=== PATIENT | male | born 1950 | race African-American/Black ===

== ENCOUNTER 2017-03-30 18:49 | Emergency (ER) | payer OTHER ==
[2017-03-30] MEDS ORDERED: Ibuprofen 800 MG TAB ONE (19:42)
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
== END 2017-03-30 20:46 | disposition home or self-care (01) ==
LOC: ERS 18:49
DX: S33.9XXA Sprain of unspecified parts of lumbar spine and pelvis, initial encounter (principal); S13.9XXA Sprain of joints and ligaments of unspecified parts of neck, initial encounter; R51 Headache; E11.42 Type 2 diabetes mellitus with diabetic polyneuropathy; F41.9 Anxiety disorder, unspecified; F32.9 Major depressive disorder, single episode, unspecified; F17.200 Nicotine dependence, unspecified, uncomplicated; I10 Essential (primary) hypertension; Z79.84 Long term (current) use of oral hypoglycemic drugs; Z79.82 Long term (current) use of aspirin; Z79.899 Other long term (current) drug therapy; V43.62XA Car passenger injured in collision with other type car in traffic accident, initial encounter
CPT/HCPCS: 71010; 72040

== ENCOUNTER 2017-04-07 16:14 | Emergency (ER) | payer OTHER ==
--- NOTE | 2017-04-07 19:24 | RAD ---
RADIOGRAPH THORACIC SPINE THREE VIEWS: History: 67-year-old male with mid-upper back pain. FINDINGS: Vertebral body heights are maintained. No high grade discogenic degenerative changes. Pedicles appea r to be grossly intact on the frontal view. The upper thoracic spine is mildly tilted to the right r elative to the lower thoracic spine. IMPRESSION: No evidence of compression fracture in the thoracic spine. POS: ZACH
== END 2017-04-07 18:25 | disposition home or self-care (01) ==
LOC: ERS 16:14
DX: S16.1XXA Strain of muscle, fascia and tendon at neck level, initial encounter (principal); S29.012A Strain of muscle and tendon of back wall of thorax, initial encounter; E78.5 Hyperlipidemia, unspecified; E11.40 Type 2 diabetes mellitus with diabetic neuropathy, unspecified; I10 Essential (primary) hypertension; F41.9 Anxiety disorder, unspecified; F32.9 Major depressive disorder, single episode, unspecified; F17.200 Nicotine dependence, unspecified, uncomplicated; Z79.84 Long term (current) use of oral hypoglycemic drugs; Z79.82 Long term (current) use of aspirin; Z79.899 Other long term (current) drug therapy; V89.2XXA Person injured in unspecified motor-vehicle accident, traffic, initial encounter
CPT/HCPCS: 72072

== ENCOUNTER 2017-07-12 13:07 | Inpatient (IN) | payer OTHER ==
[2017-07-12 13:47] LABS: #Basophils 0.1 thou/uL (0.0-0.2); #Eosinphils 0.1 thou/uL (0.0-0.7); #Lymphocytes 2.6 thou/uL (1.20-3.40); #Monocytes 0.5 thou/uL (0.11-0.59); #Neutrophils 3.7 thou/uL (1.40-6.50); %Eosinophils 1.8 % (0.0-10.0); %Lymphocytes 36.9 % (21.0-51.0); %Monocytes 7.3 % (0.0-10.0); Mean Corpuscular HGB CONC 34.1 g/dL (32.0-36.0); Mean Corpuscular Hemoglobin 31.5 pg (27.0-31.0); Mean Corpuscular Volume 92.4 fl (80.0-94.0); Mean Platelet Volume 6.7 fL (7.4-10.4); Platelet Count 299 thou/uL (130-400); RBC Distribution Width 12.2 % (11.5-14.5); Red Blood Cell (RBC) Count 4.43 mill/uL (4.70-6.10); White Blood Cell (WBC) Count 6.9 thou/uL (4.8-10.8)
--- NOTE | 2017-07-12 13:53 | RAD ---
PORTABLE AP CHEST: Date: 07/12/17 HISTORY: Dizziness with onset of symptoms last night. Unsteady gait. COMPARISON: 03/30/17. FINDINGS: Cardiac silhouette and pulmonary vasculature are within normal limits. The lungs remain clear. Vascul ar calcifications are seen in the thoracic aorta. There is question of increased density in the poste rior right 10th rib, but this is probably artifactual and related to overlying vascular structures. T here has been no interval change compared to the prior exam. IMPRESSION: No acute cardiopulmonary process. POS: [facility]ACH
[2017-07-12 14:08] LABS: ALT (SGPT) 31 U/L (8-55); AST (SGOT) 30 U/L (5-34); Alkaline Phosphatase 42 U/L (40-150); Anion Gap 15 mmol/L (10-20); BUN (Urea Nitrogen) 10 mg/dL (8.4-25.7); Bilirubin, Total 0.3 mg/dL (0.2-1.2); Calc. Creatinine Clearance 0 mL/min (70-130); Calcium 9.9 mg/dL (7.8-10.44); Carbon Dioxide 27 mmol/L (23-31); Chloride 103 mmol/L (98-107); Estimated GFR-MDRD Greater than 90; Globulin 3.3 g/dL (2.4-3.5); Glucose 98 mg/dL (80-115); Potassium 4.5 mmol/L (3.5-5.1); Protein, Total 7.3 g/dL (5.8-8.1); Sodium 140 mmol/L (136-145)
--- NOTE | 2017-07-12 14:51 | CT ---
CT HEAD NONCONTRAST: HISTORY: Dizziness. COMPARISON: 11/29/2015 FINDINGS: There is no evidence of acute intracranial hemorrhage or infarct. Chronic ischemic small vessel dise ase and old lacunar infarcts are again demonstrated. There is no mass effect or shift of midline str uctures. The visualized paranasal sinuses and middle ear cavities remain well aerated. IMPRESSION: No acute intracranial abnormalities are demonstrated on noncontrast CT head. POS: JENS
[2017-07-12 15:13] LABS: Bilirubin Negative (Negative); Blood, Urine Negative (Negative); Clarity CLEAR (Clear); Glucose, Urine (Dipstick) Negative (Negative); Leukocyte Negative (Negative); Nitrite Negative (Negative); Protein, Urine (Dipstick) Negative (Neg-Trace); Specific Gravity, Urine 1.015 (1.002-1.036); Urobilinogen 0.2 mg/dL (0.2-1.0); pH, Urine 7.5 (5.0-9.0)
[2017-07-12 15:17] LABS: Troponin I Less than 0.010 ng/mL (< 0.028)
[2017-07-12 15:21] LABS: CKMB 7.7 ng/mL (0-6.6)
--- NOTE | 2017-07-12 18:14 | MRI ---
MRI OF BRAIN WITHOUT CONTRAST 07/12/17 Multiplanar and multisequential imaging of the brain obtained. Patient refused to continue the exam and sagittal images was not obtained. Patient also refused contr ast administration. Therefore a without study only was performed. HISTORY: Evaluate for stroke. FINDINGS: There is no evidence of restricted diffusion. No acute infarct identified. There are moderate chronic ischemic white matter changes see in both cerebral hemispheres. No mass or edema. The visualized intracranial internal carotid arteries show flow voids. Proximal cerebral jose nisha and basilar arteries show flow voids. IMPRESSION: 1. No acute infarct. 2. Moderate chronic ischemic white matter changes. POS: JENS
[2017-07-12] MEDS ORDERED: Acetaminophen 325 MG TAB PO PRN (21:14)
[2017-07-12 21:18] VITALS: BMI 26.4
[2017-07-13] MEDS ORDERED: Lorazepam 1 MG TAB PO PRN (07:11)
[2017-07-13] MEDS ORDERED: HYDROcodone/Acetaminophen 5/325 mg Tablet PO PRN (07:11)
[2017-07-13] MEDS ORDERED: Nitroglycerin 0.4 MG TAB (25 Tab Bottle) SL PRN (07:11)
[2017-07-13] MEDS ORDERED: traMADol HCl 50 MG TAB PO PRN (07:11)
[2017-07-13] MEDS ORDERED: Bisacodyl 5 MG TAB PO PRN (07:11)
[2017-07-13] MEDS ORDERED: hydrALAZINE 20 MG/ML VIAL SLOW IVP PRN (07:11)
[2017-07-13] MEDS ORDERED: HumaLOG 300 UNITS/3 ML VIAL SC PRN ×2 (07:11)
[2017-07-13] MEDS ORDERED: Benzonatate 100 MG CAP PO PRN (07:11)
[2017-07-13] MEDS ORDERED: Mag-Al 1200 mg/1200 mg/30 ML UDCUP PO PRN (07:11)
[2017-07-13] MEDS ORDERED: Acetaminophen 325 MG TAB PO PRN (07:11)
[2017-07-13] MEDS ORDERED: Ondansetron HCl/PF 4 MG/2 ML Vial IVP PRN (07:11)
[2017-07-13] MEDS ORDERED: Dextrose 50% Abboject 50 ML SYRINGE SLOW IVP PRN (07:11)
[2017-07-13] MEDS ORDERED: Diabetic Tussin 200 MG/10 ML UDCUP PO PRN (07:11)
[2017-07-13] MEDS ORDERED: Dextrose 5% in Water 1,000 ML IV PRN (07:11)
[2017-07-13] MEDS ORDERED: Senokot 8.6 MG TAB PO PRN (07:11)
[2017-07-13] MEDS ORDERED: cloNIDine 0.1 MG TAB PO PRN (07:11)
[2017-07-13] MEDS ORDERED: Calcium Carbonate 500 MG ChewTAB PO PRN (07:11)
[2017-07-13] MEDS ORDERED: Acetaminophen With Codeine [Tylenol With Codeine #4] PO PRN (07:45)
[2017-07-13 07:56] LABS: Anion Gap 12 mmol/L (10-20); BUN (Urea Nitrogen) 12 mg/dL (8.4-25.7); CK (CPK) 140 U/L (30-200); Calc. Creatinine Clearance 120 mL/min (70-130); Calcium 9.7 mg/dL (7.8-10.44); Carbon Dioxide 28 mmol/L (23-31); Chloride 104 mmol/L (98-107); Estimated GFR-MDRD Greater than 90; Glucose 92 mg/dL (80-115); Sodium 140 mmol/L (136-145)
[2017-07-13 07:59] LABS: CKMB 5.4 ng/mL (0-6.6); Troponin I Less than 0.010 ng/mL (< 0.028)
--- NOTE | 2017-07-13 09:18 | CT ---
CT ARTERIOGRAM NECK WITH IV CONTRAST AND 3D MIP IMAGING CT ARTERIOGRAM HEAD WITH IV CONTRAST AND 3D MIP IMAGING: HISTORY: CVA. Vascular disease. FINDINGS: There is calcification throughout the arterial structures. Normal branching of the great vessels is present at the aortic arch. Good flow is demonstrated into each carotid system and the right vertebr al artery. Flow is present within the inferior left vertebral artery. More distally, starting at th e midcervical spine, no contrast flow is seen within the left vertebral artery. On the CT arteriogra m head images, collateral arterial flow is seen within the left side of the foramen magnum, although no flow is apparent within the vertebral artery. At the right carotid bifurcation, there is calcified and noncalcified plaque. Stenosis at the origin of the left internal carotid artery is estimated at 70%. Good flow is present through the remainder of the internal carotid artery. There is mild calcified and noncalcified plaque at the left carotid bifurcation without significant s tenosis apparent. Intracranially, there is calcification at each carotid siphon. Good flow is demonstrated throughout each middle and anterior cerebral arterial system. [place] of [place] is intact. No focal aneurysm or embolus are apparent. IMPRESSION: 1. Atherosclerosis. Significant stenosis at the origin of the right internal carotid artery, estima josé miguel at 70%. 2. Nonopacification of the distal left vertebral artery, having the appearance of long-segment occlu everardo with collateralization and reconstitution distally. POS: JENS
[2017-07-13] MEDS: Enoxaparin Sodium 40 MG/0.4 ML SYRINGE SC SCH (09:26)
[2017-07-13] MEDS: Pregabalin 75 MG CAP PO SCH ×2 (09:26→21:37)
[2017-07-13] MEDS: Lisinopril/Hydrochlorothiazide 20/25 mg Tablet PO SCH (09:30)
[2017-07-13] MEDS: HYDROcodone/Acetaminophen 5/325 mg Tablet PO PRN ×3 (09:35→21:39)
[2017-07-13 10:55] LABS: Cardiac Risk 5.8 (Less than 4.5)
--- NOTE | 2017-07-13 11:24 | HP ---
DATE OF ADMISSION: 07/13/2017 CHIEF COMPLAINT: Dizziness. HISTORY OF PRESENTING ILLNESS: Mr. Engle is a 67-year-old male with past medical history of diabetes, hypertension, dyslipidemia, peripheral neuropathy, spinal stenosis and back pain who presented to [facility] emergency room with the above-mentioned complaints. History is mainly obtained by the patient hims elf. His electronic medical records have been reviewed. The patient is a rather poor historian. According to Mr. Engle, he has problems with his balance for a long time, but for the last 2 days, he has started to have some dizziness which did not go away. It started all of a sudden while he was at his sister's house playing dominoes. He tried to rest and sleep it off, but it is a kind of persist ed. He has neuropathy in his right leg and because of that, he stumbles and falls quite often. He u ses a cane or a walker sometimes to move around. He has not had dizziness on a regular basis, but th is is more acute in nature. He denies any chest pain, shortness of breath, orthopnea or PND with the se symptoms. He denies any blurry vision, nausea, vomiting or headache with these symptoms either. He denies any recent illnesses. He denies any muscle weakness, numbness or tingling. [facility] and [facility] [place] [facility] [place] [facility]. He has known history of stenosis at multilevel in the back and reports that nothing has been done for him. Upon presentation to the emergency room, he was found to have bradycardia with heart rate of 47. Oth erwise, his neurological examination was consistent with findings of prone of nystagmus, delayed fing er-to-nose testing and some ataxia per the emergency room physician as well as positive Romberg sign. For this reason, he underwent a CT scan of the head which was unremarkable. EKG was obtained which showed sinus bradycardia. His labs were unremarkable. He was given aspirin and actually MRI of the head was obtained in the emergency room. The MRI of the brain once again was unremarkable for any e vidence of acute infarction. He does have moderate chronic ischemic small vessel changes. It was de cided that he will get admitted for further evaluation for possible posterior cerebral circulation st roke. At the time of my examination, the patient is in no apparent distress and feeling better. His sympto ms have somewhat resolved. His heart rate has improved to 52 to 58. He noticeably was taking metopr olol at home, which has not been given since his admission to the ER last night. PAST MEDICAL HISTORY: 1. Hypertension. 2. Dyslipidemia. 3. Peripheral neuropathy. 4. Diabetes mellitus. PAST SURGICAL HISTORY: 1. Back surgery x2. 2. Neck surgery. 3. Ankle surgery. SOCIAL HISTORY: He smokes about 1 pack of cigarettes on a daily basis. No history of drug, tobacco or alcohol abuse. PSYCHIATRIC HISTORY: No anxiety or depression, no suicidal ideation. FAMILY HISTORY: Significant for diabetes in multiple family members and hypertension. But his grand mother is alive at 80. He denies any heart attack or stroke in the family. ALLERGIES: PENICILLIN which causes hives. CURRENT MEDICATIONS: Are as follows; lisinopril/hydrochlorothiazide 20/25 mg daily, metoprolol tartr ate 25 mg daily, Lyrica 150 mg p.o. b.i.d., Tylenol with codeine #4 every 6 hours as needed, aspirin 81 mg daily, and metformin 1000 mg p.o. b.i.d. REVIEW OF SYSTEMS: The following complete review of systems was negative, unless otherwise mentioned in the HPI or below: Constitutional: Weight loss or gain, ability to conduct usual activities. Skin: Rash, itching. Eyes: Double vision, pain. ENT/Mouth: Nose bleeding, neck stiffness, pain, tenderness. Cardiovascular: Palpitations, dyspnea on exertion, orthopnea. Respiratory: Shortness of breath, wheezing, cough, hemoptysis, fever or night sweats. Gastrointestinal: Poor appetite, abdominal pain, heartburn, nausea, vomiting, constipation, or diarr hea. Genitourinary: Urgency, frequency, dysuria, nocturia. Musculoskeletal: Pain, swelling. Neurologic/Psychiatric: Anxiety, depression. Allergy/Immunologic: Skin rash, bleeding tendency. It is negative except for those mentioned in the history and physical. LABORATORY DATA AND IMAGING DATA: 1. CBC shows WBCs of 6.9, platelet count of 299, hemoglobin 14. Serum chemistries unremarkable. CK -MB 7.7 with repeat CK-MB of 5.4 with creatinine kinase 114. Troponin less than 0.010 x2. Urinalysi s negative for protein or glucose. 2. CT scan of the brain by my review has no evidence to suggest acute infarction or mass. Chronic s mall vessel ischemic changes and old lacunar infarctions demonstrated. 3. MRI of the brain once again is unremarkable for any acute stroke by my review. Twelve lead EKG s howed sinus bradycardia at 46 beats per minute by my review. Conduction is normal. ST segment and T -waves are normal. PHYSICAL EXAMINATION: VITAL SIGNS: Upon presentation include blood pressure 155/89, pulse of 47, respirations 14, temperat ure 97.8, and saturating 97% on room air. GENERAL: In no acute distress, awake, alert, oriented x3. HEENT: Mucous membrane is moist and pink. No oropharyngeal exudate or erythema. Head is normocepha lic, atraumatic. Pupils are equal, reactive to light and accommodation. Extraocular movements are i ntact. Some nystagmus noticed on the right horizontal gaze. NECK: Supple without any lymphadenopathy, JVD or bruit. CHEST: Clear to auscultation without any wheezing, rales or rhonchi. Rate and rhythm is regular. H e does have some bradycardia without any specific murmurs. ABDOMEN: Soft, nontender, and nondistended. Positive bowel sounds. EXTREMITIES: Free of any cyanosis, clubbing, or edema. NEUROLOGIC: Cranial nerves II-XII grossly intact. [id number] testing is intact. Gait is not ch ecked as the patient has neuropathy and reports that he has balance problems and needs a walker to wa lk. Muscle strength is 5/5 in all 4 extremities. SKIN: Free of any rashes or bruises. Feels warm and dry to touch. PSYCHIATRIC: Normal affect. VASCULAR: +2 pedal pulses felt bilaterally. IMPRESSION AND PLAN: 1. Dizziness. It seems to be multifactorial; however, at this time, most likely scenario is bradyca rdia. He has been on a beta bryan and by withholding that his heart rate has already improved. We will discontinue the beta bryan altogether from his medication profile and monitor the blood press ure and heart rate closely. Also obtain a transthoracic echocardiogram to rule out cardiomyopathy. He will be on telemetry monitoring for now. Also at this time, we will obtain a CT angiogram of the head and neck to rule out any posterior cerebellar circulation problems or carotid artery stenosis as a cause of his dizziness. He also has multiple CT scans done of his thoracic and cervical, of his l umbar and cervical spine in the last couple of years which suggest multilevel foraminal narrowing. H anne most likely has progressive symptoms because of that as well. We will refer him to Neurosurgery as an outpatient. He is otherwise hemodynamically stable. Neurology has also been consulted for these symptoms for possible stroke evaluation. He will be continued on aspirin at this time. We will earnest ck lipid panel and add statins if needed. 2. Sinus bradycardia as above. We will hold the beta bryan and obtain a transthoracic echocardiog nickolas. Cardiac enzymes are unremarkable. The patient is otherwise symptom free at the moment. 3. Hypertension, currently well controlled. We will resume his lisinopril and hydrochlorothiazide a nd monitor closely. If he needs, we will start him on alternative antihypertensive. We will avoid a ny alejandro blocking agents. 4. History of dyslipidemia. Check lipid panel. The patient does not seem to be taking any statins at this time. If needed, we will start him on cholesterol medications, especially because of the fac t that he is diabetic. 5. Diabetes mellitus. We will put him on insulin sliding scale with frequent Accu-Cheks and restart metformin. 6. History of neuropathy. Continue with Lyrica. 7. Tobacco abuse. The patient has been extensively counseled. 8. Code status: FULL CODE. Discussed with the patient. DISPOSITION: Mr. Engle is here for evaluation of dizziness and workup for CVA and bradycardia. Estim ated length of stay at this time is less than 2 midnights. Further management will depend upon his c linical course.
--- NOTE | 2017-07-13 11:58 | CON ---
DATE OF CONSULTATION: 07/13/2017 HISTORY OF PRESENT ILLNESS: This is a 67-year-old gentleman who lives in [place] with a relative who p resented to the hospital with what was described as a 2-day history of ataxia. On closer questioning , the patient admits to having multiple falls over the past year or so and even dates his difficulty with balance to back surgery that he had in the . In any event, his workup here has included a negative MRI of the brain, CT angiogram of the neck showing a left vertebral artery occlusion in its mid portion with reconstitution at the basilar artery, high grade about 80% stenosis of the right int ernal carotid artery at its origin. PAST MEDICAL HISTORY: Hypertension, diabetes mellitus, and smoking history. He also has a history o f depression. PAST SURGICAL HISTORY: Includes back surgery in and left ankle surgery related to his sports injury years before that. SOCIAL HISTORY: The patient does smoke on a daily basis. MEDICATIONS: Include aspirin 81 mg a day, lisinopril 20/25 daily, metformin 1000 b.i.d., Lyrica 150 b.i.d. and metoprolol 25 daily. ALLERGIES: Reported to PENICILLIN. REVIEW OF SYSTEMS: The patient lives rather inactive lifestyle. He uses a walker at home, primarily due to fear of falling. He has nocturia x2-3. He has some mild constipation. He has not experienc ed previous stroke. He does have some dyspnea on exertion, but no wheezes. He has a chronic cough. He does not have any chest pain. ASSESSMENT: The patient has an asymptomatic right internal carotid artery stenosis and chronic back problems with balance difficulties. PLAN: I have suggested that he have repair of his right internal carotid artery stenosis for stroke prophylaxis and he is agreeable to proceed with this on Saturday. We will await Neurology recommendati ons as well as the results of a cardiac Echo, which is being undertaken at this time.
--- NOTE | 2017-07-13 12:54 | CON ---
DATE OF CONSULTATION: 07/13/2017 CHIEF COMPLAINT: Incoordination. HISTORY OF PRESENT ILLNESS: The patient reports he has had neck problems and prior neck surgery as w ell and he is diabetic at baseline and he has been having some balance problems for a while. He also has baseline history of peripheral neuropathy, spinal canal stenosis. He reports for the past 2 day s or so, he has been having some dizziness and he describes his dizziness as the room spinning and it started while playing dominoes at his sister's house and he tried to get up and go to the restroom a nd he could not do that. He has mild weakness in the right arm as well for a while and he has been u sing a cane or a walker, but notices that he tends to stumble and he never had dizziness in the past except for these past 2 days or so. There is no history of any numbness, tingling or change in his b aseline weakness. He also goes to [facility] per his chart and he has had longstanding back problems. PAST MEDICAL HISTORY: Includes hypertension, dyslipidemia, peripheral neuropathy, diabetes. PAST SURGICAL HISTORY: Back surgeries in the lower back twice, neck surgery in the past and ankle mayes rgery. SOCIAL HISTORY: He smokes a pack of cigarettes daily. He used to drink alcohol several years ago. He was an alcoholic. He last drank alcohol about 8 months ago for 2 days and then stopped. Does not use any recreational drugs. Lives on his own and has support from family. FAMILY HISTORY: Positive for diabetes in different members of family then his son, he is 34 and had a stroke. He is in custodial and patient describes he has had weakness on the right side of the body an d has difficulty with expressive aphasia as a result of his stroke and patient does not understand wh y his son had a stroke at age 34. ALLERGIES: PENICILLIN causes hives. HOME MEDICATIONS: Noted he is on lisinopril, metoprolol, Lyrica, Tylenol with Codeine, aspirin and m etformin. REVIEW OF SYSTEMS: Pulmonary: Normal. Cardiac: Normal. Gastrointestinal: Negative for any vomit ing or constipation or diarrhea. Genitourinary: Negative for urinary frequency. Neurologic: Positive for dizziness. ENT: Negative for any tinnitus or ear problems. Musculoskeletal: Problems with his balance and weakness on the right side. Endocrine: Positive for unstable diabetes, but he is following with his regular physician every 3 months. LABORATORY RESULTS: White count 6.9, hemoglobin 14.0, hematocrit 40.9, platelets 299. Chemistry: S odium 140, potassium 4, chloride 104, bicarbonate 28, BUN 12, creatinine 0.74, glucose 128 and his ch olesterol was 185, triglycerides 138, LDL 125, and urine is negative for any abnormalities and his CT [place] point of [place] and CT angiography of the neck shows atherosclerosis and significant stenosis at th e origin of right internal carotid artery estimated at 70%. He also has non-opacification of the dis bibi left vertebral artery and he has long segment occlusion with collateralization and his brain MRI shows no acute infarct. He has moderate chronic ischemic white matter changes. PHYSICAL EXAMINATION: VITAL SIGNS: Blood pressure is 173/102, pulse is 58, temperature 98.5, respiratory rate 18. GENERAL APPEARANCE: Well-built, well-nourished gentleman who is comfortable in bed. CHEST: Clear vesicular breathing bilaterally. CARDIOVASCULAR: S1, S2 heard, no murmurs. Carotids are clear. ABDOMEN: Soft, nontender, no organomegaly was noted. NEUROLOGICAL: Higher intellectual functions, normal orientation to time, place, person and appropria te conversation. Cranial nerve examination II-XII normal. Normal extraocular movements. Normal fun dus examination. Pupils reactive to light and symmetric at 2.5 mm and normal sensation of face bilat erally. Tongue midline, no atrophy noted. No facial asymmetry noted. Normal elevation of palate. He had mild nystagmus when looking to the right and looking up bilaterally. Gait not tested. MOTOR: Bulk normal, tone normal, strength is 5/5 in the left upper and lower extremities and on the right side, he has decreased strength in his deltoid at 4/5 and biceps 4/5, triceps 5/5. The rest of the muscle groups in the right upper extremity were normal and in the right lower extremity, had sli ght decreased strength 4+/5 in the proximal and distal muscle groups and his muscle groups tested are deltoid, biceps, triceps, wrist extension/flexion, finger extension, flexion iliopsoas, hamstrings, quadriceps, ankle dorsiflexion and plantar flexion. Deep tendon reflexes were absent. SENSORY: Normal touch. Proprioception was impaired in the distal lower extremities and also normal, vibration sense in upper extremities, but declined in distal lower extremities. CEREBELLAR: Normal [id number] and [id number]. IMPRESSION: The patient is a 67-year-old man with hypertension, diabetes, peripheral neuropathy and chronic back problems. He is coming with the new-onset vertigo with spinning sensation of the room w hich has improved since admission. On examination, he has nystagmus to gaze particularly looking to the right and upward, very mild nystagmus when looking down and his right side of the body is somewha t weak. Right upper extremity shows proximal muscle weakness. Right lower extremity shows general w eakness with strength of 4/5. Whether some of these findings are contributed by his neck problems re angelika unclear. Also, his nystagmus and history of vertigo could be more peripheral vertigo such as b enign positional vertigo and at this time, symptoms have subsided. Diagnosis is most consistent with possible peripheral vertigo such as positional vertigo and right upper and lower extremity weakness, likely from cervical canal stenosis. RECOMMENDATIONS: 1. I would like to get an MRI of the neck to rule out any compression of the posterior cord that cou ld be causing proprioceptive loss and therefore presenting as mild ataxia while walking. 2. Patient needs physical therapy. 3. I also think this is an asymptomatic carotid artery stenosis on the right side and he can be seei inna a vascular surgeon and considered for future carotid endarterectomy. 4. I will come back and see him again and for now, continue present medications.
--- NOTE | 2017-07-13 15:37 | MRI ---
MRI OF THE CERVICAL SPINE WITHOUT AND WITH CONTRAST: COMPARISON: None. HISTORY: Neck pain. History of neck surgery. Right arm weakness and gait disorder. TECHNIQUE: Multiplanar, multisequence MR images were obtained of the cervical spine without and with IV contrast . FINDINGS: Generalized disk desiccation is seen. The vertebral bodies demonstrate normal height and alignment w ithout fracture or subluxation. The prevertebral and paraspinal soft tissues are unremarkable. This exam is limited secondary to motion artifact. There appears to be significant narrowing of the cord and myelomalacia from C4-5 through C5-6. No abnormal enhancement is seen. The craniocervical junct ion is unremarkable. C2-3: A small disk-osteophyte complex is seen. No posterior facet arthrosis. No neural foraminal o r central canal stenosis. C3-4: A moderate disk-osteophyte complex is seen. Severe bilateral posterior facet arthrosis. Mode rate to severe central canal stenosis. Severe bilateral neural foraminal stenosis. C4-5: A large disk-osteophyte complex is seen. Severe bilateral posterior facet arthrosis. Severe central canal stenosis. Severe bilateral neural foraminal stenosis. C5-6: A moderate disk-osteophyte complex is seen. Moderate bilateral posterior facet arthrosis. Th e cord is thin in this location and the degree of central canal stenosis is only mild. Moderate to s evere bilateral neural foraminal stenosis. C6-7: A small disk-osteophyte complex is seen. Mild bilateral posterior facet arthrosis. No centra l canal stenosis. Moderate bilateral neural foraminal stenosis. C7-T1: No significant bulge or protrusion. No posterior facet arthrosis. No central canal stenosis . No neural foraminal stenosis. IMPRESSION: Severe degenerative change of the cervical spine as above. There is myelomalacia with significant th inning of the central cervical cord. POS: [facility]
[2017-07-13] MEDS ORDERED: ISOVUE-370 76%-LOCM 1 ML ONE (16:53)
[2017-07-14 05:32] LABS: #Basophils 0.1 thou/uL (0.0-0.2); #Eosinphils 0.2 thou/uL (0.0-0.7); #Monocytes 0.9 thou/uL (0.11-0.59); %Basophils 0.9 % (0.0-1.0); %Lymphocytes 43.6 % (21.0-51.0); %Monocytes 9.7 % (0.0-10.0); %Neutrophils 43.8 % (42.0-75.0); Hemoglobin 13.6 g/dL (14.0-18.0); Mean Corpuscular HGB CONC 33.9 g/dL (32.0-36.0); Mean Corpuscular Hemoglobin 30.9 pg (27.0-31.0); Mean Corpuscular Volume 91.2 fl (80.0-94.0); Platelet Count 295 thou/uL (130-400); RBC Distribution Width 12.1 % (11.5-14.5); White Blood Cell (WBC) Count 9.2 thou/uL (4.8-10.8)
[2017-07-14 05:46] LABS: Anion Gap 15 mmol/L (10-20); BUN (Urea Nitrogen) 12 mg/dL (8.4-25.7); Calc. Creatinine Clearance 123 mL/min (70-130); Carbon Dioxide 26 mmol/L (23-31); Chloride 104 mmol/L (98-107); Estimated GFR-MDRD Greater than 90; Glucose 98 mg/dL (80-115); Potassium 3.5 mmol/L (3.5-5.1); Sodium 141 mmol/L (136-145)
--- NOTE | 2017-07-14 08:12 | PDOC.PN ---
- Subjective Encounter Start Date: 07/14/17 Encounter Start Time: 08:10 Subjective: Seen ans examined with no new complaint - Objective Vital Signs & Weight: Vital Signs (12 hours) Temp Pulse Resp BP Pulse Ox 07/14/17 05:57 98.4 F 43 L 16 129/72 95 07/14/17 00:00 98.5 F 49 L 16 119/72 97 Weight Weight 187 lb 14.4 oz I&O: 07/13/17 07/14/17 07/15/17 06:59 06:59 06:59 Intake Total 160 1080 Output Total 1750 Balance 160 -670 Result Diagrams: 07/14/17 05:07 07/14/17 05:07 Additional Labs: Accuchecks 07/13/17 07/13/17 07/13/17 20:33 16:57 10:37 POC Glucose 69 L 143 H 128 H Phys Exam - Physical Examination Constitutional: NAD HEENT: PERRLA, moist MMs, sclera anicteric, TM's clear, oral pharynx no lesions Neck: no nodes, no JVD, supple, full ROM Respiratory: no wheezing, no rhonchi Cardiovascular: RRR, no significant murmur, no rub Gastrointestinal: soft, non-tender, no distention, positive bowel sounds Dx/Plan (1) Vertigo Code(s): R42 - DIZZINESS AND GIDDINESS Status: Acute (2) Hypertension Code(s): I10 - ESSENTIAL (PRIMARY) HYPERTENSION Status: Acute (3) Chronic back pain Code(s): M54.9 - DORSALGIA, UNSPECIFIED; G89.29 - OTHER CHRONIC PAIN Status: Acute (4) Carotid artery disease Code(s): I77.9 - DISORDER OF ARTERIES AND ARTERIOLES, UNSPECIFIED Status: Acute (5) Sinus bradycardia Code(s): R00.1 - BRADYCARDIA, UNSPECIFIED Status: Acute - Plan plan discussed w/ family, PT/OT Still bradycardic despite B-bryan being o n hold--if it persists will -: request Cardiology eval -: Appreciate Neurology and CTS input -: possible CEA planned for tommorrow * .
[2017-07-14] MEDS: Enoxaparin Sodium 40 MG/0.4 ML SYRINGE SC SCH (09:03)
[2017-07-14] MEDS: Pregabalin 75 MG CAP PO SCH (09:03)
[2017-07-14] MEDS: Lisinopril/Hydrochlorothiazide 20/25 mg Tablet PO SCH (09:03)
[2017-07-14] MEDS: HYDROcodone/Acetaminophen 5/325 mg Tablet PO PRN (09:04)
--- NOTE | 2017-07-14 11:48 | PRG ---
DATE OF SERVICE: 07/14/2017 CHIEF COMPLAINT: Dizziness and lack of coordination. INTERVAL HISTORY: The patient reports his dizziness is better. He still feels like he has an echo w hen he talks, but overall dizziness has resolved. He still has incoordination. CURRENT WORKUP: His laboratory reports show a white count of 9.2, hemoglobin 13.6, hematocrit 40.2, platelets 295. Chemistries: Sodium 141, potassium 3.5, chloride 104, bicarbonate 26, anion gap 15, BUN 17, creatinine 0.72. His MRI of the C-spine shows many abnormalities in different areas of the s pine. Primarily, he has generalized disk desiccation and he has severe degenerative change of the ce rvical spine. There is myelomalacia with significant thinning of the central cervical cord. He also has disk osteophyte complexes in C2-3, C3-4, C4-5, C5-6, and C6-7 areas and there is also significan t narrowing of the cord along with myelomalacia. PHYSICAL EXAMINATION: VITAL SIGNS: Blood pressure 177/83, pulse 52, temperature is 98.7. GENERAL APPEARANCE: Well-built, well-nourished man, who is speaking to his friend, who is visiting. NEUROLOGICAL EXAMINATION: Higher intellectual functions are normal. Cranial nerves II-XII normal. Normal extraocular movements. Nystagmus has resolved. Tongue midline. No atrophy noted. No facial asymmetry. Motor examination: Bulk normal. Tone is normal. Strength is 4/5 in the right proximal upper extremity. Left upper extremity is normal. Bilateral lower extremity strength is 5/5. Gait not tested, and his coordination, cerebellar findings normal with normal [id number] and heel-to-s hin. IMPRESSION: Patient is a 67-year-old man, who presents with vertigo and he has a significant prior h istory of neck surgeries in the 1980s and has been followed by the [facility] and also sees a neurosurgeon as an outpatient at the [facility]. The patient reports he has not had any further surgeries, and not es he has chronic neck problems. His examination showed nystagmus yesterday, which has resolved. PLAN: At this time, he has mild weakness in the right upper extremity, which I believe is chronic. Clinical findings and history and imaging studies point toward a severe cervical spine disease with m yelomalacia and thinning of the cord and stenosis, plus multiple areas of osteophyte formation. He w as also found to have ICA occlusion and Dr. Iqbal is planning on surgery once the patient is cleared by Neurosurgery as far as his neck involvement is concerned. Patient has about 70% stenosis on the r ight ICA. RECOMMENDATIONS: 1. At this time, I think it is important to request neurosurgical consultation to be sure this patie nt does not need any further surgery for his neck. 2. I suggested that the patient not to look up, which could be kinking some of the arteries, particu larly the posterior circulation due to his neck disease and narrowing of the canal. 3. I think this patient might have had a small episode of peripheral vertigo, which can be evaluated by ENT as an outpatient. At this time, his symptoms of vertigo have resolved. Please call Neurolog y if you have any further questions.
[2017-07-14 15:48] VITALS: BP 123/68; TEMP 98.6
--- NOTE | 2017-07-14 18:14 | CON ---
CARDIOLOGY CONSULTATION REPORT DATE OF CONSULTATION: 07/14/2017 REASON FOR CONSULTATION: Tachycardia. HISTORY OF PRESENT ILLNESS: Mr. Engle is a pleasant 67-year-old -[place] gentleman who comes to the hospital for dizziness. He was evaluated by Neurology and was found to have what appears to b e vertigo and MRI of his neck showed severe carotid stenosis and Dr. Iqbal is planning on doing an en darterectomy in that carotid as well as Dr. Marie at the same time will do a cervical neck procedure. Today, right before he was going to be discharged, he had been on telemetry monitoring and he was c onsistently in the 60s, heart rate lazar, and he stood up, went to the bathroom, was brushing his teet h and it was noted that his pulse increased to the low 100s. Cardiology is being consulted for a con cern that this might be an arrhythmia or just a tachybrady syndrome. On my evaluation, Mr. Kadie lopez is dizzy; he denies having had any symptoms while he was up there brushing his teeth. PAST MEDICAL HISTORY: 1. Hypertension. 2. Hyperlipidemia. 3. Peripheral neuropathy. 4. Type 2 diabetes. PAST SURGICAL HISTORY: 1. Back surgery twice. 2. Neck surgery. 3. Ankle surgery. SOCIAL HISTORY: Smokes a pack a day. No alcohol, no drug or alcohol use. OUTPATIENT MEDICATIONS: Include; 1. Lisinopril/HCTZ 20/25 mg a day. 2. Metoprolol tartrate 25 mg a day. 3. Lyrica 150 mg b.i.d. 4. Tylenol with codeine. 5. Aspirin 81 a day. 6. Metformin 1000 mg b.i.d. FAMILY HISTORY: No early coronary artery disease. REVIEW OF SYSTEMS: A 12-point review of systems was done and is all negative unless stated in the hi story of present illness. ALLERGIES: PENICILLIN causes hives. PHYSICAL EXAMINATION: VITAL SIGNS: Temperature 98.6, pulse 52, respiration rate 20, satting 97% on room air and blood pres sure 123/60. GENERAL: Awake, alert and oriented x3, in no distress. HEENT: Normocephalic and atraumatic. NECK: Supple. LUNGS: Clear. CARDIOVASCULAR: S1, S2, no S3 or S4. There is a grade 2/6 systolic murmur in the right upper sterna l border. ABDOMEN: Soft, positive bowel sounds. EXTREMITIES: No edema. SKIN: Warm and dry. LABORATORY DATA: Laboratory work was reviewed. CBC, chemistries, and UA. IMAGING DATA: Telemetry was reviewed. He is in normal sinus rhythm, most of the time in the 60s, so metimes sinus deven in the 50s and when he stood up and brushed his teeth, he was actually in sinus r hythm throughout, sinus tachycardia to about in the 90s to low 100s and then it came back down slowly as he sat down and rested. ASSESSMENT AND PLAN: 1. Tachycardia: Most likely sinus in nature. This is not an abnormality, this is actually, he tell s me that he has chronotropic competence in his heart and the fact that he is bradycardic at baseline only means that he should be able to hot die picker his heart rate if he needs to do something. This is no thing to be concerned about. His echocardiogram was unremarkable. No further treatment is planned. At this time, he should be able to be discharged home as per the original plan. 2. We will sign off. Please call with any questions. We will follow up in one month after his surg main as he does have peripheral vascular disease in his carotids and he may have PVD or even coronary disease. He may need further risk stratification as an outpatient. Thank you for letting us to participate in the care of your patient.
== END 2017-07-14 16:16 | disposition home or self-care (01) | DRG 149 ==
LOC: ERS 13:07 → 2SE 18:05 → OBSVTOIN 18:05
PROVIDERS: ADMIT Internal Medicine; ATTEND Internal Medicine
DX: R42 Dizziness and giddiness (principal); G95.89 Other specified diseases of spinal cord; E11.42 Type 2 diabetes mellitus with diabetic polyneuropathy; I65.02 Occlusion and stenosis of left vertebral artery; M48.02 Spinal stenosis, cervical region; R00.1 Bradycardia, unspecified; I65.21 Occlusion and stenosis of right carotid artery; E78.5 Hyperlipidemia, unspecified; I10 Essential (primary) hypertension; M47.892 Other spondylosis, cervical region; F17.210 Nicotine dependence, cigarettes, uncomplicated; K59.00 Constipation, unspecified; M54.9 Dorsalgia, unspecified; G89.29 Other chronic pain; I77.9 Disorder of arteries and arterioles, unspecified; H55.00 Unspecified nystagmus; G51.8 Other disorders of facial nerve
CPT/HCPCS: 36415; 36416; 70450; 70496; 70498; 70551; 71045; 72156; 80048; 80053; 80061; 81003; 82550; 82553; 84484; 85025; 93005; 93306; 99406; G8978-GP-CL; G8979-GP-CJ; J1650

== ENCOUNTER 2017-09-30 14:47 | Outpatient (CLI) | payer OTHER | END 2017-09-30 14:48 | disposition home or self-care (01) | LOC: BICULT 14:47 | PROVIDERS: ATTEND Internal Medicine | DX: I65.29 Occlusion and stenosis of unspecified carotid artery (principal); I65.21 Occlusion and stenosis of right carotid artery | CPT/HCPCS: 93880 ==

== ENCOUNTER 2017-10-08 17:52 | Observation (INO) | payer MEDICARE, OTHER ==
[2017-10-08 18:55] LABS: #Basophils 0.1 thou/uL (0.0-0.2); #Eosinphils 0.2 thou/uL (0.0-0.7); #Lymphocytes 3.9 thou/uL (1.20-3.40); #Monocytes 1.1 thou/uL (0.11-0.59); #Neutrophils 5.8 thou/uL (1.40-6.50); %Basophils 0.8 % (0.0-1.0); %Eosinophils 1.8 % (0.0-10.0); %Lymphocytes 35.2 % (21.0-51.0); %Monocytes 9.6 % (0.0-10.0); %Neutrophils 52.6 % (42.0-75.0); Hemoglobin 14.2 g/dL (14.0-18.0); Mean Corpuscular HGB CONC 34.7 g/dL (32.0-36.0); Mean Corpuscular Hemoglobin 31.1 pg (27.0-31.0); Mean Corpuscular Volume 89.7 fl (80.0-94.0); Mean Platelet Volume 6.4 fL (7.4-10.4); Platelet Count 285 thou/uL (130-400); RBC Distribution Width 12.8 % (11.5-14.5); Red Blood Cell (RBC) Count 4.55 mill/uL (4.70-6.10)
[2017-10-08 19:19] LABS: ALT (SGPT) 32 U/L (8-55); AST (SGOT) 32 U/L (5-34); Alkaline Phosphatase 42 U/L (40-150); Anion Gap 13 mmol/L (10-20); BUN (Urea Nitrogen) 25 mg/dL (8.4-25.7); Bilirubin, Total 0.3 mg/dL (0.2-1.2); CK (CPK) 234 U/L (30-200); Calc. Creatinine Clearance 0 mL/min (70-130); Calcium 9.5 mg/dL (7.8-10.44); Carbon Dioxide 24 mmol/L (23-31); Chloride 106 mmol/L (98-107); Estimated GFR-MDRD Greater than 90; Globulin 3.1 g/dL (2.4-3.5); Glucose 104 mg/dL (80-115); Potassium 4.1 mmol/L (3.5-5.1); Protein, Total 7.1 g/dL (5.8-8.1); Sodium 139 mmol/L (136-145)
[2017-10-08 19:24] LABS: Troponin I Less than 0.010 ng/mL (< 0.028)
[2017-10-08 19:27] LABS: CKMB 9.5 ng/mL (0-6.6)
--- NOTE | 2017-10-08 21:01 | RAD ---
CHEST ONE VIEW: 10/08/17 HISTORY: 67-year-old male with history of chest pain and back pain, worsening with movement. COMPARISON: 07/12/17 FINDINGS: Monitor leads overlie the chest. Heart size is within normal limits. No confluent pneumonia, overt ed shaka, or pleural effusion. IMPRESSION: No acute intrathoracic disease. POS: RRE
[2017-10-08] MEDS ORDERED: HYDROcodone/Acetaminophen 5/325 mg Tablet PO PRN ×2 (21:34)
[2017-10-08] MEDS ORDERED: Acetaminophen 325 MG TAB PO PRN (21:34)
[2017-10-08 22:15] VITALS: BMI 26.5
[2017-10-08] MEDS ORDERED: Mag-Al 1200 mg/1200 mg/30 ML UDCUP PO PRN (22:18)
[2017-10-08] MEDS ORDERED: Ondansetron HCl/PF 4 MG/2 ML Vial IVP PRN (22:18)
[2017-10-08] MEDS ORDERED: Calcium Carbonate 500 MG ChewTAB PO PRN (22:18)
[2017-10-08] MEDS ORDERED: Ondansetron ODT 4 MG TAB PO PRN (22:18)
[2017-10-08] MEDS ORDERED: Nitroglycerin 0.4 MG TAB (25 Tab Bottle) PO PRN (22:18)
[2017-10-08] MEDS ORDERED: Senokot 8.6 MG TAB PO PRN (22:18)
--- NOTE | 2017-10-08 22:22 | PDOC.PN ---
- Subjective Encounter Start Date: 10/08/17 Encounter Start Time: 20:30 Patient seen and examined. - Objective Resuscitation Status: Resuscitation Status FULL:Full Resuscitation MAR Reviewed: Yes Vital Signs & Weight: Weight Weight 190 lb 3.2 oz Result Diagrams: 10/08/17 18:48 10/08/17 18:48 Additional Labs: Accuchecks 10/08/17 21:17 POC Glucose 89 Radiology Reviewed by me: Yes (SR) EKG Reviewed by me: Yes (SR, NSST changes) Phys Exam - Physical Examination Constitutional: NAD HEENT: PERRLA, moist MMs Neck: no nodes, no JVD Respiratory: no wheezing, no rales, no rhonchi, clear to auscultation bilateral Cardiovascular: RRR, no rub no heaves/pulsations Gastrointestinal: soft, non-tender, no distention, positive bowel sounds Musculoskeletal: no edema Neurological: non-focal, normal sensation, moves all 4 limbs Lymphatic: no nodes Psychiatric: normal affect, A&O x 3 Skin: no rash, normal turgor Dx/Plan - Plan * Please see H&P Review of Systems - Review of Systems Constitutional: negative: fever, chills, sweats, weakness, malaise, other Eyes: negative: Pain, Vision Change, Conjunctivae Inflammation, Eyelid Inflammation, Redness, Other ENT: negative: Ear Pain, Ear Discharge, Nose Pain, Nose Discharge, Nose Congestion, Mouth Pain, Mouth Swelling, Throat Pain, Throat Swelling, Other Respiratory: negative: Cough, Dry, Shortness of Breath, Hemoptysis, SOB with Excertion, Pleuritic Pain, Sputum, Wheezing Cardiovascular: chest pain. negative: palpitations, orthopnea, paroxysmal nocturnal dyspnea, edema, light headedness, other Gastrointestinal: negative: Nausea, Vomiting, Abdominal Pain, Diarrhea, Constipation, Melena, Hematochezia, Other Genitourinary: negative: Dysuria, Frequency, Incontinence, Hematuria, Retention , Other Musculoskeletal: Back Pain. negative: Neck Pain, Shoulder Pain, Arm Pain, Hand Pain, Leg Pain, Foot Pain, Other Skin: negative: Rash, Lesions, Dwight, Bruising, Other Neurological: negative: Weakness, Numbness, Incoordination, Change in Speech, Confusion, Seizures, Other - Medications/Allergies Allergies/Adverse Reactions: Allergies Allergy/AdvReac Type Severity Reaction Status Date / Time Penicillins Allergy Hives Verified 07/12/17 21:37 Medications: Current Medications Acetaminophen (Tylenol) 650 mg PO Q4H PRN PRN Reason: Headache/Fever or Pain Al Hydroxide/Mg Hydroxide (Maalox) 30 ml PO Q6H PRN PRN Reason: Heartburn or Indigestion Aspirin (Ecotrin) 81 mg PO DAILY [facility] Calcium Carbonate (Tums) 1,000 mg PO Q4H PRN PRN Reason: Heartburn or Indigestion Docusate Sodium (Colace) 100 mg PO BID [facility] Enoxaparin Sodium (Lovenox) 40 mg SC 2100 [facility] Famotidine (Pepcid) 20 mg PO BID [facility] Lisinopril/HCTZ (Prinizide 20-25) 1 tab PO DAILY [facility] Nitroglycerin (Nitrostat) 0.4 mg PO Q5MIN PRN PRN Reason: Chest Pain Non-Formulary Medication (Pregabalin [Lyrica]) 150 mg PO DAILY [facility] Ondansetron HCl (Zofran Odt) 4 mg PO Q6H PRN PRN Reason: Nausea/Vomiting Ondansetron HCl (Zofran) 4 mg IVP Q6H PRN PRN Reason: Nausea/Vomiting Senna (Senokot) 2 tab PO HSPRN PRN PRN Reason: Constipation Sodium Chloride (Flush - Normal Saline) 10 ml IVF PRN PRN PRN Reason: Saline Flush Stop: 10/09/17 08:10
[2017-10-08 22:23] LABS: Troponin I Less than 0.010 ng/mL (< 0.028)
[2017-10-09 01:09] LABS: Troponin I 0.011 ng/mL (< 0.028)
[2017-10-09] MEDS: Acetaminophen 325 MG TAB PO PRN ×2 (04:56→21:04)
[2017-10-09] MEDS: Sodium Chloride 0.9% 1,000 ML IV SCH ×2 (05:31→18:31)
--- NOTE | 2017-10-09 06:55 | HP ---
DATE OF ADMISSION: 10/08/2017 The patient was seen and examined on 10/08/2017. CHIEF COMPLAINT: Chest discomfort. HISTORY OF PRESENT ILLNESS: Patient is a 67-year-old -[place] Citizen male with hypertension, hyperl ipidemia, diabetes mellitus type 2, and carotid stenosis, presented to the emergency room with above complaints. The patient has a history of chronic low back pain. His chest discomfort started on his right side o f the chest and radiated across his anterior chest. He is not sure whether his back pain got worse. The pain has been ongoing for the last 2 days. It is on and off without any aggravating or relievin g factors. He denies any nausea, vomiting, diaphoresis, palpitations or syncope. No recent immobili zation, travel reported. In the emergency room, his initial vital signs showed temperature of 98.7, respirations 16, pulse of 93, blood pressure of 105/76 with O2 saturation of 95% on room air. His EKG showed sinus rhythm with some nonspecific ST-T wave changes in the lateral leads. Chest x-ray was negative for infiltrate or edema. He received aspirin in the emergency room. PAST MEDICAL HISTORY: 1. Hypertension 2. Hyperlipidemia. 3. Diabetes mellitus type 2. 4. Hospitalization at this facility in 06/2017 for dizziness. 5. Left internal carotid artery stenosis. The patient is waiting for surgery at the [facility]. PAST SURGICAL HISTORY: Several back surgeries, ankle and neck surgery. ALLERGIES: The patient is allergic to PENICILLIN. CURRENT HOME MEDICATIONS: Patient is unable to recall all of his home medications. He states that ric rodríguez takes aspirin 81 mg daily. SOCIAL HISTORY: Patient continues to smoke on and off up to 1 pack a day. No alcohol or drug use. FAMILY HISTORY: Positive for diabetes in several family members. REVIEW OF SYSTEMS: Please refer to my progress note. PHYSICAL EXAMINATION: Please refer to my progress note. LABORATORY FINDINGS: Please refer to my progress note. IMPRESSION: 1. Atypical chest pain. We will rule out acute coronary syndrome. Troponin negative so far. 2. Left internal carotid artery stenosis, 70%. The patient is awaiting surgery at the [facility]. 3. Chronic back pain, which could be contributing to the patient's chest pain. 4. Hypertension. 5. Dyslipidemia. 6. Diabetes mellitus type 2. 7. Neuropathy. 8. Ongoing tobacco abuse. PLAN: The patient will be monitored on the telemetry unit as 23-hour observation. Due to his severe carotid artery stenosis, we will hold stress test for now. The patient was seen by Dr. Josseline lewis er this year, who will be consulted. Continue aspirin for now. Gentle IV hydration due to blood pre ssure in the borderline range. Plan of care was discussed with the patient and the family at the bedside. They stated understanding .
[2017-10-09] MEDS: Aspirin 81 mg Enteric Coated Tablet PO SCH (08:28)
[2017-10-09] MEDS: Docusate 100 MG CAP PO SCH ×2 (08:28→21:03)
[2017-10-09] MEDS: Famotidine 20 MG TAB PO SCH ×2 (08:28→21:04)
[2017-10-09] MEDS ORDERED: Lisinopril/Hydrochlorothiazide 20/25 mg Tablet PO SCH (09:00)
[2017-10-09] MEDS ORDERED: Pregabalin 75 MG CAP PO SCH (09:00)
[2017-10-09 10:25] LABS: Amphetamine Not Detected (NotDetected); Barbiturates Screen Not Detected (NotDetected); Benzodiazepine Screen Not Detected (NotDetected); Cocaine Metabolite Screen Not Detected (NotDetected); Medtox Control Line Valid? VALID (VALID); Medtox Reader # READER 1; Methadone Not Detected (NotDetected); Methamphetamine Not Detected (NotDetected); Opiate Screen Detected (NotDetected); Oxycodone Screen Not Detected (NotDetected); Phencyclidine (PCP) Not Detected (NotDetected); THC/Cannabinoid Screen Not Detected (NotDetected); Tricyclic Screen Not Detected (NotDetected)
[2017-10-09] MEDS ORDERED: traMADol HCl 50 MG TAB PO PRN (12:19)
--- NOTE | 2017-10-09 18:57 | PDOC.PN ---
- Subjective Encounter Start Date: 10/09/17 Encounter Start Time: 13:00 Subjective: pt up in bed no complains - Objective Resuscitation Status: Resuscitation Status FULL:Full Resuscitation Vital Signs & Weight: Vital Signs (12 hours) Temp Pulse Resp BP Pulse Ox 10/09/17 15:09 98.2 F 60 15 168/98 H 99 10/09/17 10:30 98.1 F 56 L 18 174/88 H 97 10/09/17 07:51 98.0 F 56 L 18 10/09/17 07:25 97.8 F 56 L 18 124/70 95 10/09/17 07:10 97 Weight Weight 190 lb 3.2 oz I&O: 10/08/17 10/09/17 10/10/17 06:59 06:59 06:59 Intake Total 310 Output Total 475 Balance -165 Result Diagrams: 10/08/17 18:48 10/08/17 18:48 Additional Labs: Accuchecks 10/09/17 10/09/17 10/09/17 16:39 10:36 04:57 POC Glucose 168 H 96 94 10/08/17 10/08/17 22:04 21:17 POC Glucose 100 89 Phys Exam - Physical Examination HEENT: PERRLA, moist MMs, sclera anicteric, TM's clear, oral pharynx no lesions , 2+ tonsils Neck: no nodes, no JVD, supple, full ROM Respiratory: no wheezing, no rales, no rhonchi, wheezing present, clear to auscultation bilateral Cardiovascular: RRR, no significant murmur, no rub, gallop, irregular Gastrointestinal: soft, non-tender, no distention, positive bowel sounds Musculoskeletal: no edema, pulses present, edema present Dx/Plan - Plan 1) chest pain 2) carotid stenosis 3) * . plan: pt up in bed no chest pain. awaiting cardiology consult for evaluation. pt to have surgery as outpatient. On asa/statin Review of Systems - Review of Systems Eyes: negative: Pain, Vision Change, Conjunctivae Inflammation, Eyelid Inflammation, Redness, Other Respiratory: negative: Cough, Dry, Shortness of Breath, Hemoptysis, SOB with Excertion, Pleuritic Pain, Sputum, Wheezing Cardiovascular: negative: chest pain, palpitations, orthopnea, paroxysmal nocturnal dyspnea, edema, light headedness, other Gastrointestinal: negative: Nausea, Vomiting, Abdominal Pain, Diarrhea, Constipation, Melena, Hematochezia, Other Genitourinary: negative: Dysuria, Frequency, Incontinence, Hematuria, Retention , Other Musculoskeletal: negative: Neck Pain, Shoulder Pain, Arm Pain, Back Pain, Hand Pain, Leg Pain, Foot Pain, Other - Medications/Allergies Allergies/Adverse Reactions: Allergies Allergy/AdvReac Type Severity Reaction Status Date / Time Penicillins Allergy Hives Verified 07/12/17 21:37 Medications: Current Medications Acetaminophen (Tylenol) 650 mg PO Q4H PRN PRN Reason: Headache/Fever or Pain Last Admin: 10/09/17 04:56 Dose: 650 mg Al Hydroxide/Mg Hydroxide (Maalox) 30 ml PO Q6H PRN PRN Reason: Heartburn or Indigestion Aspirin (Ecotrin) 81 mg PO DAILY [facility] Last Admin: 10/09/17 08:28 Dose: 81 mg Atorvastatin Calcium (Lipitor) 40 mg PO DAILY [facility] Calcium Carbonate (Tums) 1,000 mg PO Q4H PRN PRN Reason: Heartburn or Indigestion Docusate Sodium (Colace) 100 mg PO BID [facility] Last Admin: 10/09/17 08:28 Dose: 100 mg Enoxaparin Sodium (Lovenox) 40 mg SC 2100 [facility] Famotidine (Pepcid) 20 mg PO BID [facility] Last Admin: 10/09/17 08:28 Dose: 20 mg Lisinopril/HCTZ (Prinizide 20-25) 1 tab PO DAILY [facility] Sodium Chloride (Normal Saline 0.9%) 1,000 mls @ 75 mls/hr IV .[id number] [facility] Last Admin: 10/09/17 18:31 Dose: 1,000 mls Nitroglycerin (Nitrostat) 0.4 mg PO Q5MIN PRN PRN Reason: Chest Pain Ondansetron HCl (Zofran Odt) 4 mg PO Q6H PRN PRN Reason: Nausea/Vomiting Ondansetron HCl (Zofran) 4 mg IVP Q6H PRN PRN Reason: Nausea/Vomiting Senna (Senokot) 2 tab PO HSPRN PRN PRN Reason: Constipation Tramadol HCl (Ultram) 50 mg PO Q6H PRN PRN Reason: Pain
[2017-10-09] MEDS ORDERED: Enoxaparin Sodium 40 MG/0.4 ML SYRINGE SC SCH (21:00)
--- NOTE | 2017-10-09 22:37 | CON ---
DATE OF CONSULTATION: 10/09/2017 HISTORY OF PRESENT ILLNESS: Mr. Engle is a 67-year-old black male who was previously evaluated by Dr. Manjarrez in 06/2017. He was admitted at that time for dizziness and MRI of his neck showed severe car otid stenosis. He also was found to have cervical spinal stenosis and he was to have a procedure wit h carotid endarterectomy by Dr. Iqbal and cervical laminectomy by Dr. Marie during the same procedure . He was discharged to come back for that procedure; however, three months later that has still not been performed. He stated that [facility] who would not [facility] it and is somewhat unclear to me the sequence of events. Prior to being discharged in June, he was brushing his teeth and his heart rate jumped from the 60 s to over 100s. Ultimately 25 mg of metoprolol was discontinued. It was felt at that time that this was a physiologic process and that he did not have sick sinus syndrome. As stated above Mr. Engle still has not had his carotid endarterectomy and cervical laminectomy. For the last 2 days, he has had multiple episodes of chest tightness. The pain does seem to be pleuritic in nature. It will come on if he is doing something such as moving his arms. The pain would last a pproximately 1 hour and was continuous in nature. He does have mild shortness of breath with that. He came to the emergency room and despite having multiple episodes of chest pain lasting 1 hour over the last 2 days, his cardiac enzymes were unremarkable. PAST MEDICAL HISTORY: Hypertension, diabetes, and hyperlipidemia. He states that he has a cholester ol medicine at home to take, but he always forgets to take it at night. There is no cholesterol medi cine on his medication list (LDL was 127 in last admission). OPERATIONS: Two back surgeries, neck surgery, and ankle surgery. HOME MEDICATIONS: Aspirin 81 daily, lisinopril/hydrochlorothiazide 20/25 q.a.m., metformin 1000 mg b .i.d., Lyrica 150 mg b.i.d. He also was on unknown cholesterol medicine at bedtime. ALLERGIES: PENICILLIN. SOCIAL HISTORY: Smokes 1 pack per day. He does not drink alcohol. FAMILY HISTORY: Negative for coronary artery disease. REVIEW OF SYSTEMS: A 12-point review of systems is otherwise unremarkable. PHYSICAL EXAMINATION: VITAL SIGNS: Blood pressure 168/98, pulse of 60. HEENT: PERRL. NECK: Supple. CHEST: Clear. CARDIAC: S1 and S2 are normal, without any S3, S4 or murmurs. ABDOMEN: Normal bowel sounds, without tenderness or organomegaly. EXTREMITIES: Revealed no clubbing, cyanosis, or edema. NEUROLOGIC: Grossly intact. SKIN: Warm and dry. MUSCULOSKELETAL: Revealed no palpable chest wall tenderness. IMAGING AND LABORATORY DATA: EKG revealed sinus tachycardia with no acute changes. Echocardiogram l ast admission revealed ejection fraction of 60% to 65%, diastolic dysfunction, mild mitral regurgitat ion and mild tricuspid regurgitation. Troponin I is negative x3. CK-MB is 9.5 with total CK of 234. Sodium 139, potassium 4.1, chloride 106, carbon dioxide 24, BUN 25, creatinine 0.91. In 06/2017, c holesterol 185, triglycerides 138, HDL 32, LDL 125, hemoglobin 14.2, hematocrit 40.8, white count 11, 000, and platelets 285,000. IMPRESSION: 1. Atypical chest discomfort with multiple episodes of 1 hour of chest pain with normal troponin I. He does have carotid artery stenosis and multiple cardiac risk factors. 2. Right carotid artery stenosis. Endarterectomy has still not been performed. 3. Cervical spinal stenosis, laminectomy has still not been performed. 4. Hypertension. 5. Hypercholesterolemia. 6. The patient continues to smoke. 7. Diabetes. 8. Peripheral neuropathy. PLAN: Mr. Engle's chest pain is somewhat atypical. He will undergo Lexiscan Cardiolite testing. Als o, since he forgets to take his bedtime cholesterol medicine, he will be started on atorvastatin 40 m g q.a.m. Also, lisinopril/hydrochlorothiazide has not been written and this will be continued.
[2017-10-10 07:45] VITALS: TEMP 98.2
[2017-10-10] MEDS ORDERED: Atorvastatin Calcium 40 MG TAB PO SCH (09:00)
[2017-10-10] MEDS ORDERED: Lisinopril/Hydrochlorothiazide 20/25 mg Tablet PO SCH (09:00)
[2017-10-10] MEDS: Sodium Chloride 0.9% 1,000 ML IV SCH (10:00)
[2017-10-10] MEDS ORDERED: Regadenoson 0.4 MG/5 ML SYRINGE ONE (10:12)
[2017-10-10] MEDS: Famotidine 20 MG TAB PO SCH (11:34)
[2017-10-10] MEDS: Docusate 100 MG CAP PO SCH (11:34)
[2017-10-10] MEDS: Aspirin 81 mg Enteric Coated Tablet PO SCH (11:35)
[2017-10-10 12:13] VITALS: BP 158/88
--- NOTE | 2017-10-10 13:02 | NM ---
CARDIAC STRESS WITH EF AND WALL MOTION: HISTORY: Chest pain. Evaluate for acute coronary syndrome. COMPARISON: None. TECHNIQUE: The patient is administered 9.2 mCi of Technetium 99m sestamibi for rest imaging and 33 mCi of Techne tium 99m sestamibi for stress imaging. Cardiac gating is performed. FINDINGS: There is homogeneous distribution of the radiotracer on the attenuation and nonattenuated images. No reversibility. No fixed defect. TID is 1.18. End-diastolic volume is 103 mL. End-systolic volume is 44 mL. CARDIAC GATING: Normal motion and thickening. Ejection fraction is 58%. IMPRESSION: 1. No reversibility or fixed defect. 2. 58% ejection fraction. POS: ZACH
--- NOTE | 2017-10-11 01:48 | DIS ---
DATE OF ADMISSION: 10/09/2017 DATE OF DISCHARGE: 10/10/2017 PRIMARY CARE PHYSICIAN: [facility] [place]. DISCHARGE DIAGNOSES: 1. Atypical chest pain. 2. History of right internal carotid artery stenosis. 3. Diabetes type 2. 4. Hyperlipidemia. 5. Hypertension. HOSPITAL COURSE: The patient is a very pleasant 67-year-old -German male who initially pres ented to the hospital with complaints of chest discomfort x2 days. The patient had troponins drawn t hat were negative. No significant EKG changes. Given his history of right internal carotid artery s tenosis, Cardiology was consulted. The patient underwent a stress test with perfusion, which was neg ative. The patient was okay to be discharged home. The patient's medications are as the following, he takes simvastatin 20 mg at bedtime, he takes Lyrica pregabalin 150 mg p.o. b.i.d., lisinopril and hydrochlorothiazide 20/25 one p.o. daily, aspirin 81 mg daily, and metformin 1000 mg p.o. daily. The patient will follow up with PCP and also he has an appointment on 10/24/2017 for Cardiovascular and Neurosurgery for procedures for his right internal carotid and also for occlusion of the left vertebr al artery. PHYSICAL EXAMINATION: VITAL SIGNS: Temperature 98.2, pulse 54, respirations 18, oxygen saturation 99% room air, and blood pressure 158/88. GENERAL: He is awake, alert, oriented x3, does not appear in distress. CARDIOVASCULAR: S1, S2 present. No murmurs, rubs, or gallops. ABDOMEN: Soft, nontender. Bowel sounds present x2. RESPIRATORY: Lungs are clear to auscultation. No rhonchi or wheezes noted. EXTREMITIES: No edema. DISCHARGE INSTRUCTIONS: The patient will be discharged home. Follow up with PCP and has an appointm ent on 10/24/2017 with Neurosurgery and Cardiovascular Surgery.
== END 2017-10-10 15:04 | disposition home or self-care (01) ==
LOC: ERS 17:52 → 2SW 20:10
PROVIDERS: ADMIT Internal Medicine; ATTEND Internal Medicine
DX: R07.89 Other chest pain (principal); I65.21 Occlusion and stenosis of right carotid artery; I10 Essential (primary) hypertension; E78.5 Hyperlipidemia, unspecified; F17.210 Nicotine dependence, cigarettes, uncomplicated; M54.9 Dorsalgia, unspecified; G89.29 Other chronic pain; M48.02 Spinal stenosis, cervical region; E78.00 Pure hypercholesterolemia, unspecified; E11.42 Type 2 diabetes mellitus with diabetic polyneuropathy; Z79.82 Long term (current) use of aspirin; Z79.84 Long term (current) use of oral hypoglycemic drugs; Z79.899 Other long term (current) drug therapy; Z88.0 Allergy status to penicillin; Z98.890 Other specified postprocedural states
CPT/HCPCS: 36415; 36416; 71045; 78452; 80053; 80306; 82553; 84484; 85025; 93005; 93017; 94760; A9500; G0378; J1650; J2785

== ENCOUNTER 2018-04-30 06:46 | Day surgery (SDC) | payer OTHER ==
--- NOTE | 2018-04-29 14:02 | HP ---
HISTORY OF PRESENT ILLNESS: Mr. Engle is a pleasant 68-year-old man who is known to us for inpatient evaluation of severe progressive weakness and gait instability that ultimately had a cervical MRI rev ealing profound critical cervical spinal stenosis centrally at C4-5 that would explain the symptoms t hat he is experiencing. This was back in June of 2017. Since that time we have had outpatient ev aluations over the course of the next several months where we repeatedly recommended and advised for surgical decompression of the [facility] and [facility] Most recently, now they barby womack have given approval now some 10 months later to proceed with the surgery. PAST MEDICAL HISTORY: Includes hypertension, dyslipidemia, peripheral neuropathy, diabetes. PAST SURGICAL HISTORY: Back surgery x2, unspecified neck surgery, unspecified ankle surgery. ALLERGIES: PENICILLIN. CURRENT MEDICATIONS: Lisinopril, hydrochlorothiazide, metoprolol, Lyrica, Tylenol 4, aspirin, metfor min. PHYSICAL EXAMINATION: GENERAL: The patient is alert and oriented x3. NEUROLOGIC: Gait is severely altered and ataxic. Depending entirely upon a walker for ambulation pu rposes. 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 He has clumsy mo tor function in the bilateral hands and is unable to button his shirt on his own. ASSESSMENT: Cervical spondylitic myelopathy. PLAN: Dr. Marie met with the patient, reviewed imaging and advocated for a C4-C5 ACDF. He explained to the patient the risks, benefits, and alternatives to the procedure. The patient expressed unders tanding and elected to move forward with surgery as discussed. I do believe the patient is mentally competent and capable of making medical decisions for himself and we will move forward with surgery a s planned.
[2018-04-29 14:36] VITALS: BMI 29.9
[2018-04-30] MEDS ORDERED: Clindamycin/D5W 900 mg/50 ml Premix Bag ONE (07:01)
[2018-04-30] MEDS ORDERED: Levofloxacin 500 mg/D5W 100 ml Premix Bag ONE (07:01)
[2018-04-30 07:50] LABS: Hemoglobin 13.7 g/dL (14.0-18.0); Mean Corpuscular HGB CONC 33.1 g/dL (32.0-36.0); Mean Corpuscular Hemoglobin 30.1 pg (27.0-31.0); Mean Corpuscular Volume 90.9 fL (78.0-98.0); Platelet Count 318 thou/uL (130-400); RBC Distribution Width 12.6 % (11.5-14.5); Red Blood Cell (RBC) Count 4.55 mill/uL (4.70-6.10); White Blood Cell (WBC) Count 9.6 thou/uL (4.8-10.8)
[2018-04-30 07:51] LABS: Anion Gap 12 mmol/L (10-20); BUN (Urea Nitrogen) 16 mg/dL (8.4-25.7); Calc. Creatinine Clearance 125 mL/min (70-130); Calcium 9.4 mg/dL (7.8-10.44); Carbon Dioxide 24 mmol/L (23-31); Chloride 108 mmol/L (98-107); Estimated GFR-MDRD Greater than 90; Glucose 98 mg/dL (80-115); Potassium 3.9 mmol/L (3.5-5.1); Sodium 140 mmol/L (136-145)
[2018-04-30] MEDS ORDERED: Fentanyl 100 MCG/2 ML VIAL ONE ×5 (08:27→11:08)
[2018-04-30] MEDS ORDERED: PHENYLEPHRINE-NS 100 MCG/ML 10 ML SYRINGE ONE (09:29)
[2018-04-30] MEDS ORDERED: Tamsulosin HCl 0.4 MG CAP ONE (10:32)
[2018-04-30] MEDS ORDERED: Labetalol HCl 100 MG/20 ML VIAL ONE (10:33)
[2018-04-30] MEDS ORDERED: Morphine 4 MG/ML VIAL ONE (10:34)
[2018-04-30] MEDS ORDERED: Morphine 2 MG/ML SYRINGE ONE ×2 (10:57→11:04)
--- NOTE | 2018-04-30 11:22 | OP ---
DATE OF PROCEDURE: 04/30/2018 SURGEON: Michael Marie M.D. SUPERVISOR LAMP SHADES: Alejandro Dunham PA-C. INDICATION: Prevent neurologic decline. PREOPERATIVE DIAGNOSIS: Cervical spondylitic myelopathy. PROCEDURE: Anterior cervical discectomy and fusion C4-5. ANESTHESIA: General. PROCEDURE IN DETAIL: The patient was brought into the operating room and placed under general anesth esia. He was placed on the table in supine position. A transverse incision was planned over the lat eral aspect of the neck on the right. After prepping and draping and after an appropriate operative pause, the incision was created. The platysma muscles identified and incised. A blunt tissue plane anterior to the sternocleidomastoid muscle was used to gain access to the prevertebral space. After identifying the appropriate level with C-arm fluoroscopy, an annulotomy was performed at the C4-5 dis k space. Distraction pins were carefully placed after drilling bar pilot holes. After distracting upon the disk space, disk materials as well as anterior and posterior osteophytes were removed until there was complete decompression of the C4-5 space. A 7 mm lordotic PEEK cage packed with allograft and a utograft material was placed within the interbody space. An anterior cervical plate was then fashion ed to the front of the spine and secured with a total of 4 fixed screws. Midline and lateral structu res were inspected and found to be free from significant trauma. The wound was irrigated. Hemostasi s was maintained throughout. The wound was then closed in anatomic layers and a pressure dressing wa s applied. There were no known procedural complications.
--- NOTE | 2018-04-30 12:42 | EKG ---
Test Reason : PREOP Blood Pressure : / mmHG Vent. Rate : 067 BPM Atrial Rate : 067 BPM P-R Int : 152 ms QRS Dur : 092 ms QT Int : 412 ms P-R-T Axes : 013 044 087 degrees QTc Int : 435 ms Normal sinus rhythm T wave abnormality, consider lateral ischemia Abnormal ECG When compared with ECG of 08-OCT-2017 18:33, No significant change was found Confirmed by DR. Theresa ALLEN ([id number]) on 04/30/2018 12:42:06 PM Referred By: HARRY Confirmed By:DR. Theresa ALLEN
[2018-04-30] MEDS ORDERED: HYDROcodone/Acetaminophen 5/325 mg Tablet ONE (13:07)
== END 2018-04-30 15:40 | disposition home or self-care (01) ==
LOC: SDC 06:46
PROVIDERS: ATTEND Neurological Surgery
PROC: 0RG10A0 Fusion of Cervical Vertebral Joint with Interbody Fusion Device, Anterior Approach, Anterior Column, Open Approach (ICD-10-PCS; principal; 2018-04-30)
PROC: 0RT30ZZ Resection of Cervical Vertebral Disc, Open Approach (ICD-10-PCS; principal; 2018-04-30)
DX: M47.12 Other spondylosis with myelopathy, cervical region (principal); M48.061 Spinal stenosis, lumbar region without neurogenic claudication; I10 Essential (primary) hypertension; E78.5 Hyperlipidemia, unspecified; E11.42 Type 2 diabetes mellitus with diabetic polyneuropathy; Z79.82 Long term (current) use of aspirin; Z79.84 Long term (current) use of oral hypoglycemic drugs; Z79.899 Other long term (current) drug therapy; Z88.0 Allergy status to penicillin; Z88.1 Allergy status to other antibiotic agents
CPT/HCPCS: 36415; 76001; 80048; 85027; 93005; 93010; 96374; 96375; 96376; C1713; C1776; J1956; J2270; J3010; J3490

== ENCOUNTER 2018-05-21 13:55 | Outpatient (CLI) | payer OTHER ==
--- NOTE | 2018-05-21 15:43 | CT ---
CT CERVICAL SPINE: Date: 05/21/18 Multiple axial tomograms obtained through the cervical spine with multiplanar reconstruction. INDICATION: Neck pain. Radiation to both arms. Correlation made to MRI cervical spine of 07/13/17. That exam revealed severe thinning of the cervica l cord at the C4-5 and C5-6 levels with myelomalacia. FINDINGS: Postoperative changes are noted since the prior MRI. Anterior plate and screws are now in place trans fixing C4 and C5 with interbody implant. Posterior laminectomy changes are seen from C3 through C6. Degenerative disc changes at all levels of the cervical spine with loss of disc space. Prominent ante rior osteophytes and posterior spondylosis is present at these levels. Mild anterior wedging of C3, C 4, C5, and C6 vertebra, consistent with chronic degenerative change. At C2-3, disc bulge flattens the anterior thecal sac and effaces the anterior subarachnoid space. Mil d right foraminal encroachment due to uncinate hypertrophy. At C3-4, there is posterior disc bulge and spondylosis impinge on the anterior cord. Gas pocket is se en anterior spinal canal on left as a result of disc desiccation and associated with broad based disc protrusion. This encroaches into the left foramina. Mild bilateral foraminal stenosis. Central disc protrusion and spondylosis abut the anterior cord, which shows thinning. At C4-5, diffuse disc bulge and bony spondylosis is seen. The cord is very thin and not well visualiz ed at this level consistent with prior MRI findings. Severe bilateral foraminal stenosis due to hyper trophic change. At C5-6, disc bulge and spondylosis. Cervical cord is thinned. Bilateral foraminal stenosis due to hy pertrophic change. At C6-7, disc bulge and spondylosis abut the anterior cord. Bilateral foraminal stenosis secondary to bony hypertrophy. IMPRESSION: Degenerative and postoperative changes of the cervical spine noted as described. POS: [facility]
== END 2018-05-21 13:56 | disposition home or self-care (01) ==
LOC: TBSIIMAG 13:55
PROVIDERS: ATTEND Neurological Surgery
DX: M54.2 Cervicalgia (principal); M47.812 Spondylosis without myelopathy or radiculopathy, cervical region; Z98.890 Other specified postprocedural states
CPT/HCPCS: 72125

== ENCOUNTER 2018-05-29 07:58 | Outpatient (CLI) | payer OTHER ==
--- NOTE | 2018-05-29 10:08 | MRI ---
MRI LUMBAR SPINE: History: Low back pain. Bilateral leg weakness, worsening over several years. The patient has had a p revious history of surgery. Comparison: None available. FINDINGS: Multiplanar, multisequence noncontrast enhanced MRI images of the lumbar spine obtained. For the purposes of this dictation, the last freely mobile vertebral body will be considered to be th e L5 vertebral body. All other vertebral bodies are numbered according to this. There is a left renal cyst or cystic lesion. Along the inferior anterior aspect of the T12 vertebral body, there is an intraosseous hemangioma. T12-L1: Mild facet hypertrophy is seen. The central canal and neural foramen are patent. L1-2: Disc desiccation is seen. There is a broad based disc bulge with bilateral facet and ligamentum flavum hypertrophy. This results in mild central and lateral recess stenosis. Mild bilateral neural foraminal narrowing. L2-3: Disc desiccation is seen. There are congenitally short pedicles seen. There is a broad based d isc bulge with bilateral facet and ligamentum flavum hypertrophy. The patient has had lower L2 lamino león changes. The central canal demonstrates no evidence of obvious significant central stenosis. Mil d lateral recess stenosis is seen. There is moderate to severe left moderate right sided neural rocky inal narrowing seen. L3-4: Disc desiccation and degeneration is seen. There is disc space height loss. There is disc osteo phyte complex centrally compressing the thecal sac. Severe facet hypertrophic and ligamentum flavum h ypertrophy is seen. This results in severe central L3-4 spinal and lateral recess stenosis. The patie nt has had a laminotomy at the posterior aspect of L3, L4, and L5 levels. There is moderate to severe right and severe left sided neural foraminal narrowing seen. L4-5: Disc desiccation is seen. There is a broad based disc osteophyte complex centrally compressing the thecal sac. Severe facet hypertrophy is seen. Overall there is moderate to severe central and lat eral recess stenosis. There is severe bilateral neural foraminal narrowing due to facet hypertrophic changes as well as a broad based disc bulge at L4-5. L5-S1: Laminotomy changes seen at L5 level. There is large central disc osteophyte complex compressin g the thecal sac extending to the central canal. The disc osteophyte is also accompanied with bilater al facet hypertrophy which results in severe bilateral L5-S1 neural foraminal narrowing. IMPRESSION: Severe multilevel mid and lower lumbar spinal stenosis due to facet hypertrophy and multilevel disc d egenerative changes. The patient has had previous laminotomy changes, however, significant central, l ateral recess and neural foraminal narrowing is present. POS: [facility]
== END 2018-05-29 07:59 | disposition home or self-care (01) ==
LOC: TBSIIMAG 07:58
PROVIDERS: ATTEND Neurological Surgery
DX: M51.16 Intervertebral disc disorders with radiculopathy, lumbar region (principal); M48.061 Spinal stenosis, lumbar region without neurogenic claudication; M48.8X6 Other specified spondylopathies, lumbar region
CPT/HCPCS: 72148

== ENCOUNTER 2018-07-08 17:27 | Emergency (ER) | payer OTHER, MEDICARE ==
[2018-07-08] MEDS ORDERED: Acetaminophen/Codeine 30-300mg Tablet ONE (18:15)
[2018-07-08] MEDS ORDERED: Cyclobenzaprine 10 MG TAB ONE (18:55)
== END 2018-07-08 19:28 | disposition home or self-care (01) ==
LOC: ERS 17:27
DX: M54.5 Low back pain (principal); I10 Essential (primary) hypertension; E78.5 Hyperlipidemia, unspecified; F41.9 Anxiety disorder, unspecified; F32.9 Major depressive disorder, single episode, unspecified; F17.210 Nicotine dependence, cigarettes, uncomplicated; E11.40 Type 2 diabetes mellitus with diabetic neuropathy, unspecified; Z79.82 Long term (current) use of aspirin; Z79.84 Long term (current) use of oral hypoglycemic drugs; Z79.1 Long term (current) use of non-steroidal anti-inflammatories (NSAID)
CPT/HCPCS: 99283

== ENCOUNTER 2018-08-15 12:47 | Outpatient (CLI) | payer OTHER ==
[2018-08-15 15:36] LABS: Mean Corpuscular HGB CONC 33.2 g/dL (32.0-36.0); Mean Corpuscular Hemoglobin 30.8 pg (27.0-31.0); Mean Corpuscular Volume 92.8 fL (78.0-98.0); Mean Platelet Volume 7.9 fL (7.4-10.4); Platelet Count 290 thou/uL (130-400); RBC Distribution Width 13.1 % (11.5-14.5); Red Blood Cell (RBC) Count 4.56 mill/uL (4.70-6.10); White Blood Cell (WBC) Count 8.5 thou/uL (4.8-10.8)
[2018-08-15 15:55] LABS: Anion Gap 14 mmol/L (10-20); BUN (Urea Nitrogen) 12 mg/dL (8.4-25.7); Calc. Creatinine Clearance 0 mL/min (70-130); Calcium 10.2 mg/dL (7.8-10.44); Carbon Dioxide 26 mmol/L (23-31); Chloride 105 mmol/L (98-107); Estimated GFR-MDRD Greater than 90; Glucose 75 mg/dL (80-115); Potassium 4.1 mmol/L (3.5-5.1); Sodium 141 mmol/L (136-145)
--- NOTE | 2018-08-15 17:11 | EKG ---
Test Reason : Blood Pressure : / mmHG Vent. Rate : 064 BPM Atrial Rate : 064 BPM P-R Int : 152 ms QRS Dur : 088 ms QT Int : 408 ms P-R-T Axes : 043 061 022 degrees QTc Int : 420 ms Normal sinus rhythm with sinus arrhythmia Nonspecific T wave abnormality , can not R/O ischemic change Abnormal ECG When compared with ECG of 30-APR-2018 07:16, No significant change was found Confirmed by MALLY ANGEL ([id number]) on 08/15/2018 5:10:44 PM Referred By: HARRY Confirmed By:MALLY ANGEL
== END 2018-08-15 12:48 | disposition home or self-care (01) ==
LOC: LABBT 12:47
PROVIDERS: ATTEND Neurological Surgery
DX: Z01.818 Encounter for other preprocedural examination (principal); M48.062 Spinal stenosis, lumbar region with neurogenic claudication
CPT/HCPCS: 80048; 85027; 93005; 93010

== ENCOUNTER 2018-08-20 05:53 | Day surgery (SDC) | payer OTHER ==
[2018-08-15 13:16] VITALS: BMI 30.1
--- NOTE | 2018-08-19 11:21 | HP ---
HISTORY OF PRESENT ILLNESS: Mr. Engle is a pleasant 68-year-old man known to us from previous hospital evaluations for cervical myelopathy and for ACDF. He presents today with progressive lower extremity pain, numbness, and paresthesias with a new MRI that reveals severe spinal stenosis between L3 through L5. He hopes to move forward with surgery if possible as he has been treating this conservatively for the last decade. PAST MEDICAL HISTORY: Hypertension, dyslipidemia, peripheral neuropathy, and diabetes. PAST SURGICAL HISTORY: Back surgery x2, unspecified prior neck surgery, ACDF, and unspecified ankle surgery. ALLERGIES: TO PENICILLIN. CURRENT MEDICATIONS: 1. Lisinopril. 2. Hydrochlorothiazide. 3. Metoprolol. 4. Lyrica. 5. Tylenol No. 4. 6. Aspirin. 7. Metformin. PHYSICAL EXAMINATION: GENERAL: The patient is alert and oriented x3. MUSCULOSKELETAL: Gait is antalgic and altered. Lower extremity motor exam is mildly diminished in all movements of bilateral lower extremities, get sensory disturbance to the bilateral feet, mostly to the dorsal aspect. ASSESSMENT: Lumbar spinal stenosis. PLAN: Dr. Marie met with the patient, reviewed imaging, and advocated for an L3 through L5 decompression. He explained to the patient the risks, benefits, and alternatives to the procedure. The patient expressed understanding and elected to move forward with surgery as discussed. I do believe the patient is mentally competent and capable of making medical decisions for himself. We will move forward with surgery as planned. Job ID: [id number]
[2018-08-20] MEDS ORDERED: Clindamycin/D5W 900 mg/50 ml Premix Bag ONE (06:09)
[2018-08-20] MEDS ORDERED: Levofloxacin 500 mg/D5W 100 ml Premix Bag ONE (06:09)
[2018-08-20] MEDS ORDERED: Bupivacaine PF 0.5% 30 ML VIAL ONE (06:28)
[2018-08-20] MEDS ORDERED: Thrombin 5000 UNITS/5 ML VIAL ONE (06:28)
[2018-08-20] MEDS ORDERED: Bupivacaine HCl 0.5%/Epinephrine 1:200,000/PF 30 ml Vial ONE (06:29)
[2018-08-20] MEDS ORDERED: Fentanyl 100 MCG/2 ML VIAL ONE ×2 (06:57→08:55)
[2018-08-20] MEDS ORDERED: Ketorolac Tromethamine 30 MG/ML VIAL ONE (08:55)
--- NOTE | 2018-08-20 09:01 | OP ---
DATE OF PROCEDURE: 08/20/2018 POLYMER ENGINEER: Alejandro Dunham PA-C INDICATION: Pain. DIAGNOSES: Lumbar stenosis with lumbar radiculopathy with neurogenic claudication. PROCEDURES PERFORMED: Reoperation of L3 through L5 lumbar decompression. ANESTHESIA: General. DESCRIPTION OF PROCEDURE: The patient was brought into the operating room and placed under general anesthesia. He was flipped from the supine to prone position on the operating room table. An old linear incision was prepped and draped in the usual sterile fashion. Following a preoperative pause, the incision was created. The underlying soft tissues were swept away from midline. Self-retaining retractors were placed in the wound for optimal exposure. After confirming appropriate level with C-arm fluoroscopy, dissected through an extensive amount of scar tissue present. Bone defects were identified at 3-4 and 4-5. High-speed cutting drill bit as well as 3 and 4 mm Kerrisons were then used to extend the prior laminectomy defect out to the level of the pedicles bilaterally. There was a loose facet joint on the right side at 3-4, which was consistent with a pars defect identified on a previous image. This was removed. After complete decompression, the wound was irrigated. Hemostasis was maintained throughout. The wound was then closed in anatomic layers and a pressure dressing was applied. There were no known procedural complications. Job ID: [id number]
[2018-08-20] MEDS ORDERED: Tamsulosin HCl 0.4 MG CAP ONE (09:11)
[2018-08-20] MEDS ORDERED: Ondansetron PF 4 MG/2 ML Vial ONE (11:21)
[2018-08-20] MEDS ORDERED: PHENYLEPHRINE-NS 100 MCG/ML 10 ML SYRINGE ONE (11:21)
[2018-08-20] MEDS ORDERED: Rocuronium Bromide 10 MG/ML (10ML VIAL) ONE (11:21)
[2018-08-20] MEDS ORDERED: Glycopyrrolate 0.2 MG/ML 5 ML SYRINGE ONE (11:21)
[2018-08-20] MEDS ORDERED: Lidocaine 1% PF 5 ML VIAL ONE (11:21)
[2018-08-20] MEDS ORDERED: PROPOFOL 200 MG/20 ML VIAL ONE (11:21)
[2018-08-20] MEDS ORDERED: HYDROcodone/Acetaminophen 5/325 mg Tablet ONE (12:58)
== END 2018-08-20 14:05 | disposition home or self-care (01) ==
LOC: SDC 05:53
PROVIDERS: ATTEND Neurological Surgery
PROC: 00NY0ZZ Release Lumbar Spinal Cord, Open Approach (ICD-10-PCS; principal; 2018-08-20)
DX: M48.062 Spinal stenosis, lumbar region with neurogenic claudication (principal); M54.16 Radiculopathy, lumbar region; I10 Essential (primary) hypertension; E11.42 Type 2 diabetes mellitus with diabetic polyneuropathy; E78.5 Hyperlipidemia, unspecified; Z98.1 Arthrodesis status; Z88.0 Allergy status to penicillin; Z79.82 Long term (current) use of aspirin; Z79.84 Long term (current) use of oral hypoglycemic drugs; Z79.899 Other long term (current) drug therapy; Z98.890 Other specified postprocedural states
CPT/HCPCS: 76000; J0670; J1885; J1956; J2001; J2405; J2704; J3010; J3490; S0020

== ENCOUNTER 2018-11-18 09:02 | Outpatient (CLI) | payer OTHER ==
[~2018-11-18 09:02] MED LIST: Gadobenate Dimeglumine 529 MG/1 ML (20ML VIAL) ONE
[2018-11-18 09:52] LABS: Estimated GFR-MDRD - POC Greater than 90
--- NOTE | 2018-11-18 13:45 | MRI ---
MRI OF THE LUMBAR SPINE WITH AND WITHOUT CONTRAST: DATE: 11/18/2018. COMPARISON: 05/29/2018. HISTORY: Radiculopathy, back pain, prior lumbar spine surgery. TECHNIQUE: Multiplanar multisequence MR imaging of the lumbar spine provided with and without contrast. FINDINGS: The sagittal STIR imaging demonstrates no focal area of osseous marrow edema. There is increased T2 s ignal intensity within the posterior paraspinal musculature/soft tissues from the L2-S1 levels, consistent with extensive prior postsurgical change. Bilateral laminectomy noted at L3, L4, and L5. No significant anterolisthesis or retrolisthesis is noted within the lumbar spine. There is fluid signal intensity in the region of bilateral facet joints and posterior to bilateral fa cet joints at L3-4 and L4-5. Assuming 5 lumbar type vertebral bodies, conus medullaris terminates in the L1-2 region. T12-L1: There is disc space narrowing and bilateral facet hypertrophy with no significant central can al or neural foraminal stenosis. Benign hemangioma noted at T12. L1-2: Disc space narrowing and disc desiccation noted with disc bulge. Mild central canal stenosis an d mild bilateral neural foraminal stenosis, right greater than left. L2-3: Disc space narrowing and disc desiccation with mild disc bulge and moderate central canal steno sis. Bilateral facet hypertrophy with mild/moderate bilateral neural foraminal stenosis, left greater than right. L3-4: There is disc space narrowing and disc desiccation with disc bulge and severe central canal lindsey nosis. There is severe bilateral facet hypertrophy with severe bilateral neural foraminal stenosis. L4-5: There is disc space narrowing and disc desiccation with disc bulge and a central disc protrusio n. There is severe central canal stenosis. Severe bilateral facet hypertrophy noted with severe bilateral neural foraminal stenosis. L5-S1: There is disc space narrowing and disc desiccation with disc bulge causing moderate central ca nal stenosis. Vacuum disc formation seen. Severe bilateral facet hypertrophy noted with severe bilateral neural foraminal stenosis. No acute findings are noted within the imaged retroperitoneum. There is a cyst within the upper pole of the left kidney. Postcontrast imaging demonstrates extensive circumferential dural and epidural enhancement from the a xial level of the L3-4 disc interspace through the level of the S2 vertebral body. No abnormal enhancement of the intervertebral discs or the osseous structures. Findings suggest diffuse dural/epi dural fibrosis. IMPRESSION: Extensive degenerative change with multilevel central canal and neural foraminal stenosis. Circumfere ntial extensive dural/epidural enhancement as detailed above, suggesting extensive fibrosis. Transcribed Date/Time: 11/18/2018 2:02 PM
== END 2018-11-18 09:03 | disposition home or self-care (01) ==
LOC: SCSMRI 09:02
PROVIDERS: ATTEND Neurological Surgery
DX: M47.26 Other spondylosis with radiculopathy, lumbar region (principal); M48.061 Spinal stenosis, lumbar region without neurogenic claudication; M48.07 Spinal stenosis, lumbosacral region
CPT/HCPCS: 72158; 82565; A9577

== ENCOUNTER 2018-12-12 12:15 | Outpatient (CLI) | payer OTHER ==
--- NOTE | 2018-12-12 16:01 | CT ---
CT Lumbar Spine WO Con HISTORY: History of previous back surgeries. Chronic low back pain with numbness in both legs. COMPARISON: 11/19/2018 MRI study. FINDINGS: The vertebral bodies are normal in height. Disc narrowing and vacuum disc phenomena are see n at L3-4, L4-5 and L5-S1 levels. Postoperative changes are also seen at this level. T12-L1: No significant canal or foraminal stenosis. L1-2: The canal is mildly narrowed without signs of the lateral advising disc herniation L2-3: Mild to moderate degree of stenosis is present at this level L3-4: Postop laminectomy changes seen at this level. Posterior soft tissue changes are felt to repres ent scar. Bilateral foraminal stenosis which appears fairly severe. L4-5: Postop laminectomy changes also seen at this level also again with considerable scar prominent central disc bulge/protrusion and marked bilateral foraminal narrowing. L5-S1: Posterior epidural scar again seen. Moderate canal stenosis. Marked bilateral foraminal narrow ing. IMPRESSION: Multilevel canal and foraminal stenosis.
== END 2018-12-12 12:16 | disposition home or self-care (01) ==
LOC: SCSCT 12:15
PROVIDERS: ATTEND Neurological Surgery
DX: M54.5 Low back pain (principal); M48.061 Spinal stenosis, lumbar region without neurogenic claudication; M48.07 Spinal stenosis, lumbosacral region
CPT/HCPCS: 72131

== ENCOUNTER 2019-01-31 21:57 | Emergency (ER) | payer OTHER ==
[2019-01-31] MEDS ORDERED: Cyclobenzaprine 10 MG TAB ONE (22:37)
[2019-01-31] MEDS ORDERED: Acetaminophen/Codeine 30-300mg Tablet ONE (22:38)
--- NOTE | 2019-01-31 23:07 | CT ---
CT Cervical Spine WO Con History: Neck pain Comparison: CT cervical spine April 2018 Findings: ACDF hardware at C4/C5 with discectomy change. Lucency around the right screw. Laminectomy at C3-T7. No acute fracture or malalignment. Advanced degenerative disc space height loss at C3/C4 and C5/C6 al hannah the C6/C7. Lung apices are clear. Paraspinal soft tissues are unremarkable. No migration discectomy cage. High-grade osseous neural foraminal narrowing at C4/C5 C5/C6 bilaterall y due to uncinate process hypertrophy and hypertrophic facet arthropathy. Impression: High-grade multilevel neural foraminal narrowing as described due to uncinate process hyp ertrophy, disc osteophyte complexes and facet arthropathy. No acute fracture.
== END 2019-01-31 23:36 | disposition home or self-care (01) ==
LOC: ERS 21:57
DX: M54.2 Cervicalgia (principal); E78.5 Hyperlipidemia, unspecified; E11.40 Type 2 diabetes mellitus with diabetic neuropathy, unspecified; Z79.899 Other long term (current) drug therapy
CPT/HCPCS: 72125

== ENCOUNTER 2019-04-15 09:39 | Emergency (ER) | payer OTHER ==
[2019-04-15] MEDS ORDERED: Fentanyl 100 MCG/2 ML VIAL ONE (09:59)
--- NOTE | 2019-04-15 10:42 | CT ---
CT THORACIC SPINE WITHOUT CONTRAST: HISTORY: Fall. Pain. COMPARISON: None FINDINGS: The visualized mediastinum is unremarkable. The visualized lung parenchyma demonstrate minimal atelec tatic change. Additional ground glass opacities in the right lower lobe and to a lesser extent the left lower lobe may represent edema or infiltrate. No definite pleural effusion The visualized solid organs are unremarkable with the exception of the right adrenal gland. There severo ears to be a 1 cm nodule, incompletely evaluated. Attenuation coefficient is 24 Hounsfield units. There are 12 thoracic type vertebrae. There is calcification at the T6-T7 disc space. Throughout the thoracic spine there is mild irregularity of the endplate due to Schmorl's nodes. Thor acic spine vertebral body heights are maintained. There does not appear to be an acute vertebral body fracture. There are acute fractures involving the spinous process at T5 and T6. There is mild as sociated distraction of the fracture sites. There appear to be displaced fractures involving the spinous process at T7, T8 and T9. There does not appear to be any facet fracture. There do not appear to be jumped or perched facets. There is moderate central canal stenosis at T4-T5 and T5-T6 secondary to disc osteophyte complexes. C6-C7: There is a large calcified component along the central and right paracentral aspect of the laina tral spinal canal which may represent prominent osteophyte formation along with extruded calcified disc material. The possibility of a calcified meningioma cannot be excluded meningioma cannot be excl uded. Non-emergent pre and post contrast MRI can be performed. T8-T9: Broad-based disc bulge with at least mild central canal stenosis. T9-T10: Mild central canal stenosis secondary to broad-based disc bulge. T10-T11: Mild to moderate central canal stenosis due to broad-based disc bulge and posterior element hypertrophy. T11-T12: Mild to moderate central canal stenosis due to broad based disc bulge and posterior element hypertrophy. Multilevel mild neural foraminal narrowing throughout the thoracic spine. IMPRESSION: 1. Spinous process fractures from from T5 to T9. 2. Calcification of the T6-T7 disc space. Abnormal calcification extends into the central spinal simone l and may represent calcified disc material with associated osteophyte formation. The possibility of a calcified meningioma cannot be excluded. There is associated severe central canal stenosis. Non- emergent pre and post contrast thoracic spine MRI can be performed. Transcribed Date/Time: 04/15/2019 10:52 AM
== END 2019-04-15 12:36 | disposition home or self-care (01) ==
LOC: ERS 09:39
DX: S22.059A Unspecified fracture of T5-T6 vertebra, initial encounter for closed fracture (principal); S22.069A Unspecified fracture of T7-T8 vertebra, initial encounter for closed fracture; S22.079A Unspecified fracture of T9-T10 vertebra, initial encounter for closed fracture; E78.5 Hyperlipidemia, unspecified; E11.40 Type 2 diabetes mellitus with diabetic neuropathy, unspecified; I10 Essential (primary) hypertension; F17.210 Nicotine dependence, cigarettes, uncomplicated; W18.30XA Fall on same level, unspecified, initial encounter
CPT/HCPCS: 72128; 96374; J3010

== ENCOUNTER 2019-04-22 22:12 | Emergency (ER) | payer OTHER ==
[2019-04-22 22:41] LABS: #Basophils 0.1 thou/uL (0.0-0.2); #Eosinphils 0.3 thou/uL (0.0-0.7); #Lymphocytes 4.4 thou/uL (1.20-3.40); #Monocytes 1.1 thou/uL (0.11-0.59); %Basophils 1.2 % (0.0-1.0); %Eosinophils 2.4 % (0.0-10.0); %Lymphocytes 40.5 % (21.0-51.0); %Monocytes 10.1 % (0.0-10.0); %Neutrophils 45.8 % (42.0-75.0); Hemoglobin 12.2 g/dL (14.0-18.0); Mean Corpuscular HGB CONC 34.1 g/dL (32.0-36.0); Mean Corpuscular Hemoglobin 28.8 pg (27.0-31.0); Mean Corpuscular Volume 84.3 fL (78.0-98.0); Mean Platelet Volume 7.2 fL (7.4-10.4); Platelet Count 359 thou/uL (130-400); RBC Distribution Width 14.8 % (11.5-14.5); Red Blood Cell (RBC) Count 4.25 mill/uL (4.70-6.10); White Blood Cell (WBC) Count 10.8 thou/uL (4.8-10.8)
--- NOTE | 2019-04-22 22:56 | RAD ---
Chest AP view INDICATION: Chest pain COMPARISON: Single view chest dated October 08, 2017 FINDINGS: Lungs:No consolidation is evident. Cardiac silhouette:The cardiomediastinal silhouette appears within normal limits. Pulmonary vasculature:Normal Pleural spaces:No pleural effusion or pneumothorax is demonstrated. Upper abdomen:No abnormality seen. Osseous structures: No acute osseous abnormality. Additional findings:ACDF is seen involving the C6-7 intervertebral level. IMPRESSION: No acute cardiopulmonary abnormality.
[2019-04-22 22:57] LABS: ALT (SGPT) 24 U/L (8-55); AST (SGOT) 22 U/L (5-34); Albumin 4.1 g/dL (3.4-4.8); Alkaline Phosphatase 57 U/L (40-110); Anion Gap 15 mmol/L (10-20); BUN (Urea Nitrogen) 12 mg/dL (8.4-25.7); Bilirubin, Total 0.2 mg/dL (0.2-1.2); CK (CPK) 112 U/L (30-200); Calc. Creatinine Clearance 0 mL/min (70-130); Calcium 9.7 mg/dL (7.8-10.44); Carbon Dioxide 24 mmol/L (23-31); Chloride 105 mmol/L (98-107); Estimated GFR-MDRD 90; Globulin 3.2 g/dL (2.4-3.5); Glucose 125 mg/dL (80-115); Potassium 3.5 mmol/L (3.5-5.1); Protein, Total 7.3 g/dL (5.8-8.1); Sodium 140 mmol/L (136-145)
[2019-04-23 01:55] LABS: Troponin I Less than 0.010 ng/mL (< 0.028)
[2019-04-23 05:42] LABS: Troponin I Less than 0.010 ng/mL (< 0.028)
== END 2019-04-23 05:46 | disposition short-term general hospital (02) ==
LOC: ERS 22:12
DX: I20.0 Unstable angina (principal); I10 Essential (primary) hypertension; E11.9 Type 2 diabetes mellitus without complications; E78.5 Hyperlipidemia, unspecified; F17.210 Nicotine dependence, cigarettes, uncomplicated; F41.9 Anxiety disorder, unspecified; F32.9 Major depressive disorder, single episode, unspecified; Z79.84 Long term (current) use of oral hypoglycemic drugs; Z79.899 Other long term (current) drug therapy
CPT/HCPCS: 36415; 71045; 80053; 82550; 84484; 85025; 93005; 94760

== ENCOUNTER 2019-07-19 19:05 | Emergency (ER) | payer OTHER ==
[2019-07-19 20:04] LABS: #Basophils 0.1 thou/uL (0.0-0.2); #Eosinphils 0.2 thou/uL (0.0-0.7); #Lymphocytes 3.4 thou/uL (1.20-3.40); #Monocytes 1.1 thou/uL (0.11-0.59); #Neutrophils 6.6 thou/uL (1.40-6.50); %Basophils 0.8 % (0.0-1.0); %Eosinophils 1.9 % (0.0-10.0); %Lymphocytes 29.9 % (21.0-51.0); %Monocytes 9.4 % (0.0-10.0); %Neutrophils 58.1 % (42.0-75.0); Hemoglobin 13.6 g/dL (14.0-18.0); Mean Corpuscular HGB CONC 33.6 g/dL (32.0-36.0); Mean Corpuscular Hemoglobin 29.3 pg (27.0-31.0); Mean Corpuscular Volume 87.2 fL (78.0-98.0); Mean Platelet Volume 7.7 fL (7.4-10.4); Platelet Count 298 thou/uL (130-400); RBC Distribution Width 14.7 % (11.5-14.5); Red Blood Cell (RBC) Count 4.63 mill/uL (4.70-6.10); White Blood Cell (WBC) Count 11.3 thou/uL (4.8-10.8)
--- NOTE | 2019-07-19 20:16 | CT ---
CT Head without IV contrast COMPARISON: 07/12/2017 HISTORY: Altered mental status TECHNIQUE: Axial CT imaging at 5 mm intervals from vertex through skull base without contrast FINDINGS: There is no evidence of an acute infarction, hemorrhage, mass effect, or midline shift. There is decr eased attenuation seen in the periventricular white matter which is nonspecific but likely attributable to chronic small vessel ischemic changes. Remote lacunar infarctions are again seen in e ach basal ganglia and each thalamus. There is mild cerebral volume loss. The ventricular system is normal in size, shape, and position for the degree of sulcal atrophy. Visualized paranasal sinuses are clear. Osseous structures appear intact. Prominent vascular calcifications are seen in the distal vertebral arteries and involving the carotid siphons. IMPRESSION: 1. No acute intracranial abnormality demonstrated. 2. Chronic findings as described above.
[2019-07-19 20:18] LABS: ALT (SGPT) 30 U/L (8-55); AST (SGOT) 24 U/L (5-34); Alkaline Phosphatase 51 U/L (40-110); Anion Gap 15 mmol/L (10-20); BUN (Urea Nitrogen) 22 mg/dL (8.4-25.7); Bilirubin, Total 0.3 mg/dL (0.2-1.2); CK (CPK) 167 U/L (30-200); Calc. Creatinine Clearance 0 mL/min (70-130); Calcium 9.1 mg/dL (7.8-10.44); Carbon Dioxide 24 mmol/L (23-31); Chloride 106 mmol/L (98-107); Estimated GFR-MDRD Greater than 90; Globulin 3.2 g/dL (2.4-3.5); Glucose 122 mg/dL (80-115); Potassium 3.5 mmol/L (3.5-5.1); Protein, Total 7.2 g/dL (5.8-8.1); Sodium 141 mmol/L (136-145)
--- NOTE | 2019-07-19 20:36 | CT ---
CT CERVICAL SPINE WITHOUT CONTRAST: Comparison: 01-31-19 History: Generalized weakness, neck pain. Technique: Multiple contiguous axial images were obtained in a CT of the cervical spine without contr ast. Sagittal and coronal reformats were performed. FINDINGS: There are post-surgical changes of the cervical spine. There is a plate and screw spanning the C4 and C5 vertebral bodies. There has been removal of the posterior elements throughout the cervical spine. Vertebral bodies demonstrate normal height without acute fracture or subluxation. No prevertebral so ft tissue swelling is seen. The posterior facets are well aligned. Normal alignment of the skull base with the cervical spine is seen. When compared to the prior examination, no significant change has occurred. IMPRESSION: Degenerative changes and post-surgical changes of the cervical spine without acute osseous abnormalit y. POS: Thalia
[2019-07-19] MEDS ORDERED: Aspirin 325 MG TAB ONE (20:40)
--- NOTE | 2019-07-19 21:23 | RAD ---
EXAM: CHEST ONE VIEW HISTORY: Weakness, syncope. COMPARISON: 04/22/2019 FINDINGS: Patient is rotated to the right which accentuates the cardiac silhouette and mediastinal structures. There is prominence in the hilar regions bilaterally, but this is also thought to be related to accentuation secondary to patient rotation. No definite consolidation or pleural fluid is appreciated . Thoracic aorta is ectatic. Postsurgical changes lower cervical spine are again noted. No other interval change. IMPRESSION: Limited exam due to patient rotation, but no definite acute process is seen. If patient's symptoms pe rsist, follow-up imaging is advised.
[2019-07-19] MEDS ORDERED: Enoxaparin Sodium 100 MG/ML SYRINGE ONE (21:40)
[2019-07-20 00:10] LABS: CKMB 10.5 ng/mL (0-6.6)
== END 2019-07-20 03:00 ==
LOC: ERS 19:05
DX: I21.4 Non-ST elevation (NSTEMI) myocardial infarction (principal); E78.5 Hyperlipidemia, unspecified; E11.42 Type 2 diabetes mellitus with diabetic polyneuropathy; I10 Essential (primary) hypertension; F32.9 Major depressive disorder, single episode, unspecified; F17.210 Nicotine dependence, cigarettes, uncomplicated; Z79.899 Other long term (current) drug therapy; Z79.84 Long term (current) use of oral hypoglycemic drugs
CPT/HCPCS: 36415; 70450; 71045; 72125; 80053; 82550; 82553; 83880; 84484; 85025; 93005; 96360; 96372; J1650

== ENCOUNTER 2020-03-07 13:24 | Inpatient (IN) | payer MEDICARE, OTHER ==
[2020-03-07 13:59] LABS: #Basophils 0.1 thou/uL (0.0-0.2); #Eosinphils 0.4 thou/uL (0.0-0.7); #Lymphocytes 4.1 thou/uL (1.20-3.40); #Monocytes 1.5 thou/uL (0.11-0.59); #Neutrophils 6.4 thou/uL (1.40-6.50); %Basophils 0.6 % (0.0-1.0); %Eosinophils 3.3 % (0.0-10.0); %Lymphocytes 32.7 % (21.0-51.0); %Monocytes 11.9 % (0.0-10.0); %Neutrophils 51.6 % (42.0-75.0); Hemoglobin 10.9 g/dL (14.0-18.0); Mean Corpuscular HGB CONC 34.2 g/dL (32.0-36.0); Mean Corpuscular Hemoglobin 31.1 pg (27.0-31.0); Mean Corpuscular Volume 90.9 fL (78.0-98.0); Mean Platelet Volume 7.3 fL (7.4-10.4); Platelet Count 345 thou/uL (130-400); White Blood Cell (WBC) Count 12.5 thou/uL (4.8-10.8)
[2020-03-07 14:20] LABS: ALT (SGPT) 20 U/L (8-55); AST (SGOT) 33 U/L (5-34); Albumin 3.8 g/dL (3.4-4.8); Alkaline Phosphatase 46 U/L (40-110); Anion Gap 16 mmol/L (10-20); BUN (Urea Nitrogen) 13 mg/dL (8.4-25.7); Bilirubin, Total 0.3 mg/dL (0.2-1.2); Calc. Creatinine Clearance 0 mL/min (70-130); Calcium 8.8 mg/dL (7.8-10.44); Carbon Dioxide 22 mmol/L (23-31); Chloride 109 mmol/L (98-107); Estimated GFR-MDRD 32; Globulin 2.9 g/dL (2.4-3.5); Glucose 76 mg/dL (80-115); Potassium 3.5 mmol/L (3.5-5.1); Protein, Total 6.7 g/dL (5.8-8.1); Sodium 143 mmol/L (136-145)
--- NOTE | 2020-03-07 14:23 | RAD ---
EXAM: Single view of the chest HISTORY: Hypotension COMPARISON: 03/01/2020 FINDINGS: Single view of the chest shows an enlarged but stable cardiomediastinal silhouette. There i s no evidence of consolidation, mass, or pleural effusion. Degenerative changes are seen in the spine. Hardware seen in the cervical spine. IMPRESSION: Stable cardiomegaly
--- NOTE | 2020-03-07 14:58 | PDOC.HHP ---
Hospitalist HPI - History of Present Illness Referred for low blood pressure reading History of Present Illness: PCP: TOD The patient is a 70-year-old male with a past medical history significant for hypertension, hyperlipidemia, diabetes type 2, lumbar stenosis, BPH and peripheral neuropathy presents to the ER via EMS for the above complaint. The patient reports checking his blood pressure daily and sent electronically to his doctors at the [facility]. This morning, after sending his blood pressure readings to his doctors, they called EMS and recommended that he go to the ER for further evaluation. He reports that the blood pressure reading was 74/50. He also states that he was started on a new blood pressure medication about a month ago. He is not sure, but he believes it is his amlodipine. Reports "I pee alot". Denies dysuria. Says it is all the "pee pills I take". He denies any chest pain, heart palpitations, lightheadedness. He does report swelling to bilateral lower extremities, however, this is chronic. Denies abdominal pain, vomiting, diarrhea. Denies cough and shortness of breath. Denies any recent fever or chills. The patient was seen in the hospital on 03/05/2020 for syncopal episode. Patient full cardiac work-up including consult by cardiology. Echocardiogram showed EF 60 to 65%, grade 1/3 diastolic dysfunction. Mild mitral regurgitation. Cardiology recommended that the patient stop his hydrochlorothiazide. Continue amlodipine, Lasix, aspirin and atorvastatin. Unfortunately, the patient left AMA and did not change any of his home medication regimen. ED Course: VITAL SIGNS SatMar 07, 2020 13:34 FRANCHESCA Franklin Jennifer BP: 89/63, MAP: 71, Pulse: 81, O2 sat: 97 on (Room Air), Time: 03/07/2020 13:34. VITAL SIGNS SatMar 07, 2020 13:55 FRANCHESCA Franklin Jennifer BP: 115/73, MAP: 87, Pulse: 81, Resp: 16, Temp: 97.9 (Oral), Pain: 9, O2 sat: 100 on (Room Air), Time: 03/07/2020 13:55. VITAL SIGNS SatMar 07, 2020 14:26 FRANCHESCA Franklin Jennifer BP: 111/70, MAP: 83, Pulse: 72, Resp: 13, Pain: 0, O2 sat: 100 on (Room Air), Time: 03/07/2020 14:26. Medication Administration: sodium chloride 0.9 % intravenous 2 L IV Fluid Infusion Acknowledged 15:34 2019 vancomycin in dextrose 5 % 1.5 g IV Piggy Back Acknowledged 15:34 03/07/2020 cefepime injection 2 g IV Piggy Back Acknowledged 15:34 03/07/2020 Hospitalist ROS - Review of Systems Constitutional: denies: fever, chills Respiratory: denies: cough, shortness of breath, hemoptysis Cardiovascular: reports: edema (Bilateral lower extremities, chronic, mild). denies: chest pain, palpitations Gastrointestinal: denies: nausea, vomiting, abdominal pain, diarrhea Genitourinary: denies: dysuria, frequency, hematuria Neurological: denies: weakness, numbness, change in speech All other systems reviewed; all pertinent +/- noted in HPI/Subj - Medication Medications: metFORMIN TABLET : Strength - 1,000 mg : ORAL Patient Dose: 2 times a day. tamsulosin CAPSULE, EXT RELEASE 24 HR : Strength - 0.4 mg : ORAL Patient Dose: 2 cap(s) once a day. pregabalin (bulk) POWDER (GRAM) : Strength - 100 % : MISCELLANEOUS Patient Dose: 150 mg 2 times a day. lisinopril-hydrochlorothiazide TABLET : Strength - 20 mg-25 mg : ORAL Patient Dose: once a day (in the morning). Allergies: Penicillin Hospitalist History - Past Medical History Source: patient, RN notes reviewed Other Medical History: MEDICAL HISTORY SatMar 07, 2020 14:31 FRANCHESCA Franklin Jennifer Past medical history includes history of hyperlipidemia, PERIPHERAL NEUROPATHY, BACK PAIN, Past medical history includes history of diabetes, Past medical history includes history of hypertension, pinched nerve in neck. MALE SURGICAL HISTORY SatMar 07, 2020 14:31 FRANCHESCA Franklin Jennifer BACKx3, NECK SURGERYx2, ANKLE SX, RT LOWER LEG ARTERY UNCLOG TO CLEAR BLOCKAGE- NOVEMBER 26 2018. PSYCHIATRIC HISTORY SatMar 07, 2020 14:31 FRANCHESCA Franklin Jennifer Psychiatric history includes, depression. SOCIAL HISTORY SatMar 07, 2020 14:31 FRANCHESCA Franklin Jennifer Patient denies alcohol use, Lives at home, with family, Patient denies drug use , Patient currently uses tobacco, 1/2 pack per day. Uses powerchair. FAMILY HISTORY: Contributory for DM, HTN, cardiac disease - Social History Activity level: independent ambulation - Exam General Appearance: NAD, awake alert. negative: ill appearing Eye: PERRL. negative: anicteric sclera ENT: normocephalic atraumatic, moist mucosa Neck: supple, symmetric Heart: RRR, no murmur, no gallops, no rubs, normal peripheral pulses Respiratory: CTAB, no wheezes, no rales, no ronchi, normal chest expansion, no tachypnea Gastrointestinal: soft, non-distended, no bruit, no guarding, no rigidity, distended Gastrointestinal - other findings: Distant bowel sounds secondary to body habitus Extremities: 1+ LE edema Extremities - other findings: MADELEINE hose bilaterally Skin - other findings: Multiple scabs to bilateral lower extremities, chronic Neurological: normal sensation to touch, no weakness, no focal deficits Musculoskeletal - other findings: Unable to assess gait Psychiatric: normal affect, A&O x 3 Hospitalist Results - Labs Result Diagrams: 03/07/20 13:52 03/07/20 13:52 Lab results: WBC 12.5 thou/uL (4.8-10.8) H 03/07/20 13:52 Hgb 10.9 g/dL (14.0-18.0) L 03/07/20 13:52 Hct 31.8 % (42.0-52.0) L 03/07/20 13:52 MCV 90.9 fL (78.0-98.0) 03/07/20 13:52 Plt Count 345 thou/uL (130-400) 03/07/20 13:52 Neutrophils % 51.6 % (42.0-75.0) 03/07/20 13:52 Sodium 143 mmol/L (136-145) 03/07/20 13:52 Potassium 3.5 mmol/L (3.5-5.1) 03/07/20 13:52 Chloride 109 mmol/L (98-107) H 03/07/20 13:52 Carbon Dioxide 22 mmol/L (23-31) L 03/07/20 13:52 BUN 13 mg/dL (8.4-25.7) 03/07/20 13:52 Creatinine 2.42 mg/dL (0.7-1.3) H 03/07/20 13:52 Glucose 76 mg/dL (80-115) L 03/07/20 13:52 Lactic Acid 3.0 mmol/L (0.5-2.2) H 03/07/20 13:52 Calcium 8.8 mg/dL (7.8-10.44) 03/07/20 13:52 Total Bilirubin 0.3 mg/dL (0.2-1.2) 03/07/20 13:52 AST 33 U/L (5-34) 03/07/20 13:52 ALT 20 U/L (8-55) 03/07/20 13:52 Alkaline Phosphatase 46 U/L (40-110) 03/07/20 13:52 Troponin I Less than 0.010 ng/mL (< 0.028) 03/07/20 13:52 Serum Total Protein 6.7 g/dL (5.8-8.1) 03/07/20 13:52 Albumin 3.8 g/dL (3.4-4.8) 03/07/20 13:52 - EKG Interpretation EKG: Straits normal sinus rhythm with a rate of 80, IA 112, QRS duration 70, QTc of 422, cures axis 47 degrees with significant artifact in the high lateral and inferior leads at limit interpretation, T waves otherwise appear to be flattened diffusely, axis is normal, conduction is normal ST segments appear normal. Nonspecific EKG. EKG #2 demonstrates normal sinus rhythm with a rate 71, IA 152, QRS durations 86 , QTc of 415, cures axis 49 degrees with normal T waves normal ask normal conduction normal ST segments. Normal EKG. - Radiology Interpretation Chest x-ray Status: report reviewed by me Additional Comment: Stable cardiomegaly Hospitalist H&P A/P - Problem (1) Hypotension Status: Acute (2) MUNIRA (acute kidney injury) Code(s): N17.9 - ACUTE KIDNEY FAILURE, UNSPECIFIED Status: Acute (3) DMII (diabetes mellitus, type 2) Status: Chronic (4) HLD (hyperlipidemia) Code(s): E78.5 - HYPERLIPIDEMIA, UNSPECIFIED Status: Chronic (5) BPH (benign prostatic hyperplasia) Code(s): N40.0 - BENIGN PROSTATIC HYPERPLASIA WITHOUT LOWER URINRY TRACT SYMP Status: Chronic (6) Peripheral neuropathy Code(s): G62.9 - POLYNEUROPATHY, UNSPECIFIED Status: Chronic (7) Tobacco abuse Code(s): Z72.0 - TOBACCO USE Status: Chronic - Plan Plan: 70/M presents for hypotension. Patient recently admitted at the hospital for syncopal episode. Full cardiac work-up. Cardiology recommended holding home dose HCTZ, patient left MA and did not adjust home medication regimen. Admit to telemetry floor, inpatient status. Expected length of stay greater than 2 midnights. #Hypotension Reported home reading 70s/50s. Upon upon arrival to ED, 89/63 with normal pulse, normal respirations, afebrile. WBCs 12.5, lactic acid 3.0 Chest x-ray negative for acute process. Blood culture, UA urine culture pending. Unclear etiology. Reports recently started on amlodipine in past 30 days. Continue Vancomycin and cefepime. Give 1 L normal saline bolus. Check TSH, cortisol. Get orthostatic vital signs in a.m. #MUNIRA Likely prerenal. Presented with creatinine 2.42, was 0.76 on previous admission. Continue IV fluid resuscitation. Renal US. Recheck level in a.m. Hold diuretics. #Diabetes 2 Presented with blood sugar 76. Hold home dose of metformin. Start mild sliding scale and ACH S Accu-Cheks. #Hyperlipidemia Restart patient's home dose of atorvastatin. #BPH Restart home dose of Flomax. #Peripheral neuropathy Restart home dose of Lyrica. Heparin for DVT prophylaxis. No GI prophylaxis. Full code. Designated contact is his fiancLashaun at [phone]. Discussed case with Dr. Welsh
[2020-03-07] MEDS ORDERED: Cefepime 2 GM VIAL ONE (15:35)
[2020-03-07] MEDS ORDERED: Sodium Chloride 0.9% 100 ML ONE (15:35)
[2020-03-07] MEDS ORDERED: Senokot S 8.6-50 MG TAB PO PRN (15:42)
[2020-03-07] MEDS ORDERED: Ondansetron PF 4 MG/2 ML Vial IVP PRN (15:42)
[2020-03-07] MEDS ORDERED: Calcium Carbonate 500 MG ChewTAB PO PRN (15:42)
[2020-03-07] MEDS ORDERED: Ondansetron ODT 4 MG TAB PO PRN (15:42)
[2020-03-07] MEDS ORDERED: Acetaminophen 325 MG TAB PO PRN (15:42)
[2020-03-07] MEDS ORDERED: Sodium Chloride 0.9% 1,000 ML IV SCH (15:45)
[2020-03-07] MEDS ORDERED: HumaLOG 300 UNITS/3 ML VIAL SC PRN ×2 (15:52)
[2020-03-07] MEDS ORDERED: Dextrose 5% in Water 1,000 ML IV PRN (15:52)
[2020-03-07] MEDS ORDERED: Dextrose 50% Abboject 50 ML SYRINGE SLOW IVP PRN (15:52)
[2020-03-07] MEDS ORDERED: Nicotine 14 MG PATCH TD SCH (16:00)
[2020-03-07 16:37] LABS: Bilirubin Negative (Negative); Blood, Urine Negative (Negative); Clarity Clear (Clear); Glucose, Urine (Dipstick) Normal (Negative); Ketone, Urine Negative (Negative); Leukocyte Negative Leu/uL (Negative); Nitrite Negative (Negative); Protein, Urine (Dipstick) 10 mg/dL (Neg-Trace); Specific Gravity, Urine 1.018 (1.002-1.036); Urobilinogen Normal mg/dL (Less than 2)
[2020-03-07] MEDS ORDERED: Vancomycin 1.5 GRAM/300 ML BAG 1.5 GM in Premix Bag 1 BAG IVPB SCH (17:00)
[2020-03-07 17:41] LABS: Lactic Acid 3.6 mmol/L (0.5-2.2)
--- NOTE | 2020-03-07 18:55 | ULT ---
Renal ultrasound: 03/07/2020 COMPARISON: None HISTORY: Acute kidney insufficiency TECHNIQUE: Multiplanar grayscale sonographic imaging of the kidneys and urinary bladder obtained. FINDINGS: Left kidney measures 9.8 x 5.4 x 5.6 cm and right kidney measures 10.6 x 4.9 x 4.9 cm. Urin flora bladder appears grossly unremarkable. There is no right renal mass, hydronephrosis, or stone. No hydronephrosis seen on the left. There is a lower pole left renal cyst measuring 2.7 cm. IMPRESSION: No acute findings.
[2020-03-07] MEDS: Pregabalin 75 MG CAP PO SCH (21:33)
[2020-03-07] MEDS: Heparin 5,000 UNITS/ML VIAL SC SCH (21:34)
[2020-03-07 22:01] VITALS: BMI 30.9
[2020-03-08] MEDS ORDERED: Cefepime 1 GM in Sodium Chloride 0.9% 100 ML IVPB SCH (04:00)
[2020-03-08 04:36] LABS: #Basophils 0.1 thou/uL (0.0-0.2); #Eosinphils 0.5 thou/uL (0.0-0.7); #Lymphocytes 3.6 thou/uL (1.20-3.40); #Monocytes 1.1 thou/uL (0.11-0.59); #Neutrophils 5.2 thou/uL (1.40-6.50); %Basophils 0.8 % (0.0-1.0); %Eosinophils 4.6 % (0.0-10.0); %Lymphocytes 34.6 % (21.0-51.0); %Monocytes 10.1 % (0.0-10.0); Hemoglobin 10.7 g/dL (14.0-18.0); Mean Corpuscular HGB CONC 33.8 g/dL (32.0-36.0); Mean Corpuscular Hemoglobin 30.7 pg (27.0-31.0); Mean Corpuscular Volume 90.8 fL (78.0-98.0); Mean Platelet Volume 7.3 fL (7.4-10.4); Platelet Count 346 thou/uL (130-400); Red Blood Cell (RBC) Count 3.48 mill/uL (4.70-6.10); White Blood Cell (WBC) Count 10.3 thou/uL (4.8-10.8)
[2020-03-08 05:37] LABS: Anion Gap 11 mmol/L (10-20); BUN (Urea Nitrogen) 10 mg/dL (8.4-25.7); Calc. Creatinine Clearance 94 mL/min (70-130); Calcium 8.6 mg/dL (7.8-10.44); Carbon Dioxide 24 mmol/L (23-31); Chloride 109 mmol/L (98-107); Estimated GFR-MDRD 89; Glucose 78 mg/dL (80-115); Potassium 3.3 mmol/L (3.5-5.1); Sodium 141 mmol/L (136-145)
[2020-03-08] MEDS ORDERED: Potassium Chloride 20 MEQ TAB PO SCH (08:00)
[2020-03-08] MEDS: Pregabalin 75 MG CAP PO SCH (08:52)
[2020-03-08] MEDS: Heparin 5,000 UNITS/ML VIAL SC SCH (08:52)
[2020-03-08] MEDS ORDERED: Tamsulosin HCl 0.4 MG CAP PO SCH (09:00)
[2020-03-08] MEDS ORDERED: Aspirin 81 mg Enteric Coated Tablet PO SCH (09:00)
[2020-03-08 09:51] VITALS: BP 142/82; TEMP 97.6
[2020-03-08 13:04] LABS: SARS-CoV-2 MS2 Positive; SARS-CoV-2 N Gene Negative; SARS-CoV-2 S Gene Negative; SARS-CoV-2 by NAA Not Detected (NotDetected); SARS-CoV-2 orf1ab Negative
[2020-03-08] MEDS ORDERED: Vancomycin 1 GM in Premix Bag 1 BAG IVPB SCH (18:00)
[2020-03-08] MEDS ORDERED: Atorvastatin Calcium 40 MG TAB PO SCH (21:00)
--- NOTE | 2020-03-09 00:09 | DIS ---
DATE OF ADMISSION: 03/07/2020 DATE OF DISCHARGE: 03/08/2020 DISCHARGE DIAGNOSES: 1. Acute kidney injury. 2. Hypotension. 3. Dehydration. 4. Noncompliance. 5. Diabetes mellitus. 6. Hyperlipidemia. 7. Benign prostatic hypertrophy. 8. Peripheral neuropathy. 9. Tobacco abuse. 10. Chronic back pain. 11. Severe central canal and foraminal stenosis at L3-4 and L4-5. HISTORY OF PRESENT ILLNESS: The patient is a 70-year-old male, who was previously admitted to this facility on 03/01/2020. The patient had some abdominal pain, had significant workup that included an MRI of his lumbar spine revealing severe spinal stenosis. There were recommendations for surgery. Ultimately, the patient left against medical advice. There were some recommendations for the patient's medications, but it is unclear how much of that got communicated effectively given the fact that he left AMA. The patient returned to the hospital on this occasion because he monitors his blood pressure at home and [facility] Apparently, his pressure was down to 74/50 and he was told to come back to the hospital. The patient was found to have systolic in the 80s. He had some acute kidney injury and was given fluids in the emergency department. His blood pressure tended to respond. HOSPITAL COURSE: The patient was admitted to the hospital. He continued on IV fluids, and by the following day, the patient's blood pressure was up to 142/82. His GFR was up to 89 and he was feeling fine other than his chronic back pain. I talked to the patient. He was continuing to take his diuretics, although he had been instructed not to during his previous discharge, although that information was not conveyed on discharge paperwork as the patient left against medical advice. It was felt the patient was suffering from dehydration from over-utilization of diuretics, which had been discontinued during his previous admission, but continued on his discharge because of his leaving against medical advice. He was otherwise felt to be stable for discharge after trying to effectively communicate to him those things on this visit. At the time of discharge, temperature is 97.6, pulse 58, respirations 16, O2 saturation 99% on room air, BP 142/82. He was awake and alert. Heart was regular. Lungs clear. Abdomen benign. Extremities, no edema. DISPOSITION: The patient is discharged to home. He is to continue with a heart healthy diabetic diet. ACTIVITY: As tolerated. DISCHARGE MEDICATIONS: He will be on Lyrica 150 mg b.i.d., metformin 1000 mg b.i.d. Tamsulosin 0.4 mg daily; although his blood pressure remains low, he is to discontinue that and call his PCP and be on aspirin 81 mg daily. Atorvastatin 40 mg daily, lisinopril 20 mg q.a.m. and Tylenol No 4 p.r.n. He will discontinue his amlodipine as he had previously reported significant lower extremity edema necessitating the diuretics and the amlodipine could be contributory. He is to follow up at the [facility] in 7 days. He has a provider there, Dr. Rice. He is to have repeat blood work done within the week. He can return to the hospital at anytime he has the need to do so. I did spend a good bit of time encouraging the patient to ensure that he followed up at some facility to get the lab work rechecked and to monitor the blood pressures effectively which he felt confident he could do. This patient was admitted as an inpatient due to acute kidney injury and hypotension. He had a rapid recovery that was much faster than anticipated based on the patient's initial labs and clinical situation. Time spent in discharge activities was > 30 min. Job ID: [id number] [facility]
== END 2020-03-08 11:40 | disposition home or self-care (01) | DRG 315 ==
LOC: ERS 13:24 → 2NO 14:57
PROVIDERS: ADMIT Internal Medicine; ATTEND Internal Medicine
DX: I95.9 Hypotension, unspecified (principal); N17.9 Acute kidney failure, unspecified; Z20.828 Contact with and (suspected) exposure to other viral communicable diseases; I10 Essential (primary) hypertension; E78.5 Hyperlipidemia, unspecified; M48.061 Spinal stenosis, lumbar region without neurogenic claudication; N40.0 Benign prostatic hyperplasia without lower urinary tract symptoms; F17.210 Nicotine dependence, cigarettes, uncomplicated; F32.9 Major depressive disorder, single episode, unspecified; E86.0 Dehydration; E11.51 Type 2 diabetes mellitus with diabetic peripheral angiopathy without gangrene; Z79.84 Long term (current) use of oral hypoglycemic drugs; Z88.0 Allergy status to penicillin; Z79.899 Other long term (current) drug therapy; Z91.19 Patient's noncompliance with other medical treatment and regimen
CPT/HCPCS: 36415; 36416; 71045; 76770; 80048; 80053; 81003; 82533; 83605; 84145; 84443; 84484; 85025; 87040; 87086; 87635; 93005; 96360; 96361; 96365; 96366; 96367; J0692; J1644; J3370; J3490; U0003

== ENCOUNTER 2020-05-02 07:17 | Outpatient (CLI) | payer OTHER ==
[2020-05-02 15:28] LABS: Anion Gap 15 mmol/L (10-20); BUN (Urea Nitrogen) 8 mg/dL (8.4-25.7); Calc. Creatinine Clearance 0 mL/min (70-130); Calcium 9.3 mg/dL (7.8-10.44); Carbon Dioxide 25 mmol/L (23-31); Chloride 102 mmol/L (98-107); Estimated GFR-MDRD Greater than 90; Glucose 73 mg/dL (80-115); Potassium 5.3 mmol/L (3.5-5.1); Sodium 137 mmol/L (136-145)
[2020-05-03 13:37] LABS: SARS-CoV-2 MS2 Positive; SARS-CoV-2 N Gene Negative; SARS-CoV-2 S Gene Negative; SARS-CoV-2 by NAA Not Detected (NotDetected); SARS-CoV-2 orf1ab Negative
== END 2020-05-02 07:18 | disposition home or self-care (01) ==
LOC: LABBT 07:17
PROVIDERS: ATTEND Neurological Surgery
DX: Z01.818 Encounter for other preprocedural examination (principal); G95.9 Disease of spinal cord, unspecified; Z20.828 Contact with and (suspected) exposure to other viral communicable diseases
CPT/HCPCS: 80048; 87635; U0003

== ENCOUNTER 2020-05-24 06:56 | Outpatient (CLI) | payer MEDICARE ==
[2020-05-24 18:02] LABS: Hemoglobin 7.6 g/dL (14.0-18.0); Mean Corpuscular HGB CONC 29.5 G/DL (32.0-36.0); Mean Corpuscular Hemoglobin 23.8 PG (27.0-33.0); Mean Corpuscular Volume 80.6 fl (80.0-100.0); Mean Platelet Volume 9.5 fl (7.4-10.4); Platelet Count 486 10x3/uL (130-400); RBC Distribution Width 14.6 % (11.5-14.5); White Blood Cell (WBC) Count 10.4 10x3/uL (4.5-11.0)
[2020-05-24 18:08] LABS: Anion Gap 12 mmol/L (10-20); BUN (Urea Nitrogen) 11 mg/dL (8.4-25.7); Calc. Creatinine Clearance 0 mL/min (70-130); Calcium 9.4 mg/dL (7.8-10.44); Carbon Dioxide 27 mmol/L (23-31); Chloride 104 mmol/L (98-107); Estimated GFR-MDRD Greater than 90; Glucose 101 mg/dL (80-115); Potassium 3.8 mmol/L (3.5-5.1); Sodium 139 mmol/L (136-145)
[2020-05-25 03:02] LABS: SARS-CoV-2 MS2 Positive; SARS-CoV-2 N Gene Negative; SARS-CoV-2 S Gene Negative; SARS-CoV-2 by NAA Not Detected (NotDetected); SARS-CoV-2 orf1ab Negative
== END 2020-05-24 06:57 | disposition home or self-care (01) ==
LOC: LABBT 06:56
PROVIDERS: ATTEND Neurological Surgery
DX: Z01.812 Encounter for preprocedural laboratory examination (principal); Z20.828 Contact with and (suspected) exposure to other viral communicable diseases; G95.9 Disease of spinal cord, unspecified
CPT/HCPCS: 80048; 85027; U0003; 87635

== ENCOUNTER 2020-06-10 16:03 | Emergency (ER) | payer OTHER | END 2020-06-10 17:39 | disposition home or self-care (01) | LOC: ERS 16:03 | DX: R60.0 Localized edema (principal); E78.5 Hyperlipidemia, unspecified; E11.9 Type 2 diabetes mellitus without complications; I10 Essential (primary) hypertension; F17.210 Nicotine dependence, cigarettes, uncomplicated; Z79.899 Other long term (current) drug therapy | CPT/HCPCS: 99283 ==

== ENCOUNTER 2020-06-22 17:27 | Emergency (ER) | payer OTHER ==
[2020-06-22 19:06] LABS: Hemoglobin 8.6 g/dL (14.0-18.0); Mean Corpuscular HGB CONC 31.4 g/dL (32.0-36.0); Mean Corpuscular Hemoglobin 23.1 pg (27.0-31.0); Mean Corpuscular Volume 73.6 fL (78.0-98.0); Mean Platelet Volume 7.5 fL (7.4-10.4); Platelet Count 441 thou/uL (130-400); RBC Distribution Width 15.3 % (11.5-14.5); Red Blood Cell (RBC) Count 3.74 mill/uL (4.70-6.10); White Blood Cell (WBC) Count 15.2 thou/uL (4.8-10.8)
[2020-06-22 19:26] LABS: ALT (SGPT) 57 U/L (8-55); AST (SGOT) 42 U/L (5-34); Albumin 3.8 g/dL (3.4-4.8); Alkaline Phosphatase 75 U/L (40-110); Anion Gap 15 mmol/L (10-20); BUN (Urea Nitrogen) 11 mg/dL (8.4-25.7); Bilirubin, Total 0.2 mg/dL (0.2-1.2); Calc. Creatinine Clearance 0 mL/min (70-130); Calcium 9.1 mg/dL (7.8-10.44); Carbon Dioxide 23 mmol/L (23-31); Chloride 109 mmol/L (98-107); Globulin 3.8 g/dL (2.4-3.5); Glucose 77 mg/dL (80-115); Potassium 4.4 mmol/L (3.5-5.1); Protein, Total 7.6 g/dL (5.8-8.1); Sodium 143 mmol/L (136-145)
[2020-06-22 19:28] LABS: Anisocytosis SLIGHT = 6-15 cells (100X) (0-5/hpf); Eosinophils 2 % (0-10); Hypochromia SLIGHT = 6-15 cells (100X) (0-5/hpf); Lymphocytes 18 % (21-51); MDiff Complete? YES; Microcytosis SLIGHT = 6-15 cells (100X) (0-5/hpf); Monocytes 15 % (0-10); Neutrophil 65 % (42-75); Platelet Morphology Comment Appears Increased; Polychromasia SLIGHT = 2-3 cells (100X) (0-2/hpf); Target Cells SLIGHT = 2-5 cells (100X) (0-1/hpf)
[2020-06-22 21:15] LABS: PTT 35.4 sec (22.9-36.1); Prothrombin Time 13.3 sec (12.0-14.7)
[2020-06-22] MEDS ORDERED: Ondansetron PF 4 MG/2 ML Vial ONE (21:37)
[2020-06-22] MEDS ORDERED: Morphine 4 MG/ML VIAL ONE (21:37)
--- NOTE | 2020-06-22 22:58 | ULT ---
LEFT UPPER EXTREMITY VENOUS DOPPLER: 06/22/20 PROVIDED CLINICAL HISTORY: Left upper extremity pain. FINDINGS: Morrissey scale and color Doppler sonography with spectral analysis was performed of the left internal jug ular, subclavian, axillary, basilic, cephalic, brachial, radial and ulnar veins, demonstrating a norm al sonographic appearance to each. IMPRESSION: No sonographic evidence for left upper extremity deep venous thrombosis. POS: HUEY
[2020-06-22] MEDS ORDERED: cefTRIAXone\\ROCEPHIN 1 GM VIAL ONE (23:30)
[2020-06-23] MEDS ORDERED: Vancomycin 1 GM/200 ML BAG ONE (00:27)
[2020-06-23 02:25] LABS: Bacteria/HPF None Seen HPF (None Seen); Bilirubin Negative (Negative); Blood, Urine Negative (Negative); Clarity Clear (Clear); Glucose, Urine (Dipstick) Normal (Negative); Ketone, Urine Negative (Negative); Leukocyte Negative Leu/uL (Negative); Mucous/LPF 1+ LPF (<2+); Nitrite Negative (Negative); Protein, Urine (Dipstick) 30 mg/dL (Neg-Trace); RBC/HPF 0-3 HPF (0-3); Specific Gravity, Urine 1.025 (1.002-1.036); Squamous Epithelial 0-3 HPF (0-3); Urobilinogen Normal mg/dL (Less than 2); WBC/HPF 0-3 HPF (0-3); pH, Urine 5.5 (5.0-9.0)
--- NOTE | 2020-06-23 06:42 | RAD ---
TWO VIEWS LEFT FOREARM: DATE: 06/22/2020. PROVIDED CLINICAL HISTORY: Swelling. FINDINGS: There is increased density within the subcutaneous adipose layer about th elbow as well as prominence of the soft tissues overlying the olecranon. There is no evidence for soft tissue gas or radiopaque foreign body. Vascular calcifications are seen. There is no evidence for a fracture or other acute osseous abnormality. IMPRESSION: Nonspecific soft tissue swelling about the elbow. POS: HUEY
--- NOTE | 2020-06-23 06:43 | RAD ---
LEFT HUMERUS RADIOGRAPHS 2 VIEWS: DATE: 06/22/2020. PROVIDED CLINICAL HISTORY: Swelling. FINDINGS: There is no evidence for a fracture or other acute osseous abnormality. Prominence of the soft tissu es about the elbow. No evidence for soft tissue gas or radiographically apparent foreign body. IMPRESSION: Nonspecific soft tissue swelling about the elbow. POS: HUEY
--- NOTE | 2020-06-25 11:50 | EKG ---
Test Reason : Blood Pressure : / mmHG Vent. Rate : 063 BPM Atrial Rate : 063 BPM P-R Int : 146 ms QRS Dur : 078 ms QT Int : 400 ms P-R-T Axes : 036 047 024 degrees QTc Int : 409 ms Normal sinus rhythm Normal ECG Confirmed by AKBAR CRABTREE M.D. ([id number]), editorial assistant JOSE LAIRD ([id number] on 06/25/2020 11:50:30 AM Referred By: Confirmed By:AKBAR CRABTREE M.D.
== END 2020-06-23 05:24 ==
LOC: ERS 17:27
DX: L03.114 Cellulitis of left upper limb (principal); M71.9 Bursopathy, unspecified; E78.5 Hyperlipidemia, unspecified; E11.9 Type 2 diabetes mellitus without complications; I10 Essential (primary) hypertension; F17.210 Nicotine dependence, cigarettes, uncomplicated
CPT/HCPCS: 36415; 80053; 81003; 81015; 83880; 84484; 85025; 85610; 85652; 85730; 86140; 93005; 96365; 96366; 96367; 96375; J0696; J2270; J2405; J3370

== ENCOUNTER 2020-06-29 01:45 | Emergency (ER) | payer OTHER ==
[2020-06-29 02:44] LABS: #Basophils 0.1 thou/uL (0.0-0.2); #Eosinphils 0.1 thou/uL (0.0-0.7); #Lymphocytes 2.8 thou/uL (1.20-3.40); #Monocytes 2.2 thou/uL (0.11-0.59); #Neutrophils 10.3 thou/uL (1.40-6.50); %Basophils 0.5 % (0.0-1.0); %Eosinophils 0.9 % (0.0-10.0); %Lymphocytes 17.8 % (21.0-51.0); %Monocytes 14.1 % (0.0-10.0); %Neutrophils 66.7 % (42.0-75.0); Hemoglobin 8.3 g/dL (14.0-18.0); Mean Corpuscular HGB CONC 30.5 g/dL (32.0-36.0); Mean Corpuscular Hemoglobin 22.5 pg (27.0-31.0); Mean Corpuscular Volume 73.6 fL (78.0-98.0); Mean Platelet Volume 7.2 fL (7.4-10.4); Platelet Count 575 thou/uL (130-400); RBC Distribution Width 15.8 % (11.5-14.5); Red Blood Cell (RBC) Count 3.68 mill/uL (4.70-6.10); White Blood Cell (WBC) Count 15.5 thou/uL (4.8-10.8)
[2020-06-29 03:08] LABS: ALT (SGPT) 22 U/L (8-55); AST (SGOT) 32 U/L (5-34); Albumin 3.5 g/dL (3.4-4.8); Alkaline Phosphatase 61 U/L (40-110); Anion Gap 17 mmol/L (10-20); BUN (Urea Nitrogen) 15 mg/dL (8.4-25.7); Bilirubin, Total Less than 0.2 mg/dL (0.2-1.2); Calc. Creatinine Clearance 0 mL/min (70-130); Calcium 8.7 mg/dL (7.8-10.44); Carbon Dioxide 19 mmol/L (23-31); Chloride 107 mmol/L (98-107); Globulin 3.3 g/dL (2.4-3.5); Glucose 118 mg/dL (80-115); Potassium 4.2 mmol/L (3.5-5.1); Protein, Total 6.8 g/dL (5.8-8.1); Sodium 139 mmol/L (136-145)
--- NOTE | 2020-06-29 08:40 | RAD ---
RADIOGRAPH CHEST 1 VIEW: DATE: 06/29/2020 TIME: 2:19 AM HISTORY: 70-year-old male with cough COMPARISON: 03/07/2020 FINDINGS: New finding of mild haziness at lower lung zones, especially the left mid and lower lung zones where there are reticular densities. Cardiac size probably within normal limits for AP technique. Lung apices are grossly clear. No consolidation. No pneumothorax. No gross effacement of lateral costophre mt angles. IMPRESSION: Mild, faint interstitial densities on the left: Nonspecific but possibly mild early interstitial yovani a versus infectious pneumonitis. Recommend follow-up.
== END 2020-06-29 04:24 | disposition home or self-care (01) ==
LOC: ERS 01:45
DX: I95.9 Hypotension, unspecified (principal); E78.5 Hyperlipidemia, unspecified; E11.9 Type 2 diabetes mellitus without complications; I10 Essential (primary) hypertension; F17.210 Nicotine dependence, cigarettes, uncomplicated; Z79.899 Other long term (current) drug therapy
CPT/HCPCS: 36415; 71045; 80053; 84484; 85025; 93005

== ENCOUNTER 2020-08-13 15:34 | Emergency (ER) | payer OTHER ==
[2020-08-13 16:39] LABS: #Basophils 0.1 thou/uL (0.0-0.2); #Eosinphils 0.5 thou/uL (0.0-0.7); #Lymphocytes 3.8 thou/uL (1.20-3.40); #Neutrophils 5.2 thou/uL (1.40-6.50); %Basophils 0.8 % (0.0-1.0); %Eosinophils 4.6 % (0.0-10.0); %Lymphocytes 36.1 % (21.0-51.0); %Monocytes 9.7 % (0.0-10.0); %Neutrophils 48.8 % (42.0-75.0); Hemoglobin 11.7 g/dL (14.0-18.0); Mean Corpuscular HGB CONC 32.4 g/dL (32.0-36.0); Mean Corpuscular Volume 77.4 fL (78.0-98.0); Mean Platelet Volume 8.4 fL (7.4-10.4); Platelet Count 408 thou/uL (130-400); RBC Distribution Width 21.5 % (11.5-14.5); Red Blood Cell (RBC) Count 4.67 mill/uL (4.70-6.10); White Blood Cell (WBC) Count 10.6 thou/uL (4.8-10.8)
[2020-08-13 16:52] LABS: Anisocytosis SLIGHT = 6-15 cells (100X) (0-5/hpf); Hypochromia SLIGHT = 6-15 cells (100X) (0-5/hpf); MDiff Complete? YES; Microcytosis SLIGHT = 6-15 cells (100X) (0-5/hpf); Platelet Morphology Comment Appears Increased; Polychromasia SLIGHT = 2-3 cells (100X) (0-2/hpf); Target Cells SLIGHT = 2-5 cells (100X) (0-1/hpf)
[2020-08-13 16:55] LABS: ALT (SGPT) 31 U/L (8-55); AST (SGOT) 30 U/L (5-34); Alkaline Phosphatase 60 U/L (40-110); Anion Gap 16 mmol/L (10-20); BUN (Urea Nitrogen) 14 mg/dL (8.4-25.7); Bilirubin, Total 0.2 mg/dL (0.2-1.2); Calc. Creatinine Clearance 0 mL/min (70-130); Calcium 9.5 mg/dL (7.8-10.44); Carbon Dioxide 20 mmol/L (23-31); Chloride 106 mmol/L (98-107); Glucose 107 mg/dL (80-115); Potassium 3.9 mmol/L (3.5-5.1); Sodium 138 mmol/L (136-145)
[2020-08-13 19:01] LABS: PTT 32.4 sec (22.9-36.1)
[2020-08-13 19:02] LABS: Prothrombin Time 13.2 sec (12.0-14.7)
== END 2020-08-13 20:02 | disposition home or self-care (01) ==
LOC: ERS 15:34
DX: D64.9 Anemia, unspecified (principal); E78.5 Hyperlipidemia, unspecified; E11.42 Type 2 diabetes mellitus with diabetic polyneuropathy; F17.210 Nicotine dependence, cigarettes, uncomplicated; Z79.899 Other long term (current) drug therapy
CPT/HCPCS: 36415; 80053; 85025; 85610; 85730; 86850; 86900; 86901; 93005

== ENCOUNTER 2020-10-12 13:15 | Inpatient (IN) | payer OTHER ==
[2020-10-17] MEDS ORDERED: Fentanyl 100 MCG/2 ML VIAL ONE ×2 (06:44→10:55)
[2020-10-17] MEDS ORDERED: Thrombin 5000 UNITS/5 ML VIAL ONE (06:45)
[2020-10-17] MEDS ORDERED: Levofloxacin 500 mg/D5W 100 ml Premix Bag ONE (06:55)
[2020-10-17] MEDS ORDERED: Clindamycin/D5W 900 mg/50 ml Premix Bag ONE ×2 (06:55→18:01)
[2020-10-17] MEDS ORDERED: Rocuronium Bromide 10 MG/ML (10ML VIAL) ONE (07:34)
[2020-10-17] MEDS ORDERED: Ondansetron PF 4 MG/2 ML Vial ONE (07:34)
[2020-10-17] MEDS ORDERED: PHENYLEPHRINE-NS 100 MCG/ML 10 ML SYRINGE ONE (07:34)
[2020-10-17] MEDS ORDERED: Dexamethasone 20 MG/5 ML VIAL ONE (07:34)
[2020-10-17] MEDS ORDERED: Glycopyrrolate 0.2 MG/ML 5 ML SYRINGE ONE (07:34)
[2020-10-17] MEDS ORDERED: ePHEDrine Sulfate 50 MG/10 ML VIAL ONE (07:34)
[2020-10-17] MEDS ORDERED: PROPOFOL 200 MG/20 ML VIAL ONE (07:34)
[2020-10-17] MEDS ORDERED: Lidocaine 1% PF 5 ML VIAL ONE (07:34)
[2020-10-17] MEDS ORDERED: Phenylephrine 10 MG/ML VIAL ONE (09:30)
[2020-10-17] MEDS ORDERED: Ondansetron PF 4 MG/2 ML Vial IVP PRN (10:42)
[2020-10-17] MEDS ORDERED: Acetaminophen 325 MG TAB PO PRN (10:42)
[2020-10-17] MEDS ORDERED: diphenhydrAMINE 50 MG/ML VIAL IVP PRN (10:42)
[2020-10-17] MEDS ORDERED: tiZANidine HCl 4 MG TAB PO PRN (10:42)
[2020-10-17] MEDS ORDERED: Acetaminophen/Codeine 30-300mg Tablet PO PRN ×2 (10:42)
[2020-10-17] MEDS ORDERED: Bisacodyl 10 MG SUPP PR PRN (10:42)
[2020-10-17] MEDS ORDERED: Morphine 2 MG/ML VIAL SLOW IVP PRN (10:42)
[2020-10-17] MEDS ORDERED: Promethazine HCl 25 MG/ML VIAL SLOW IVP PRN (10:55)
[2020-10-17] MEDS ORDERED: Promethazine HCl 25 MG/ML VIAL IM PRN (10:55)
[2020-10-17] MEDS ORDERED: Ondansetron HCl/PF 4 MG/2 ML Vial IVP PRN (10:55)
[2020-10-17] MEDS ORDERED: Morphine Sulfate 2 MG/ML SYRINGE SLOW IVP PRN (10:55)
[2020-10-17] MEDS: Sodium Chloride 0.9% 1,000 ML IV SCH (12:00)
[2020-10-17] MEDS: Clindamycin/D5W 900 MG in Premix Bag 1 BAG IVPB SCH ×2 (18:04→22:47)
[2020-10-17] MEDS: metFORMIN 500 MG TAB PO SCH (21:19)
[2020-10-17] MEDS: Pregabalin 75 MG CAP PO SCH (22:47)
[2020-10-18 03:18] VITALS: BMI 33.4
[2020-10-18] MEDS: Sodium Chloride 0.9% 1,000 ML IV SCH ×2 (04:25→08:14)
[2020-10-18] MEDS ORDERED: Tamsulosin HCl 0.4 MG CAP PO SCH (06:00)
[2020-10-18] MEDS: Clindamycin/D5W 900 MG in Premix Bag 1 BAG IVPB SCH ×2 (06:01→15:57)
[2020-10-18 06:56] LABS: Anion Gap 17 mmol/L (10-20); BUN (Urea Nitrogen) 10 mg/dL (8.4-25.7); Calc. Creatinine Clearance 136 mL/min (70-130); Calcium 9.4 mg/dL (7.8-10.44); Carbon Dioxide 22 mmol/L (23-31); Chloride 105 mmol/L (98-107); Glucose 94 mg/dL (80-115); Potassium 3.8 mmol/L (3.5-5.1); Sodium 140 mmol/L (136-145)
[2020-10-18 07:09] LABS: #Basophils 0.1 thou/uL (0.0-0.2); #Lymphocytes 3.3 thou/uL (1.20-3.40); #Neutrophils 8.2 thou/uL (1.40-6.50); %Basophils 0.6 % (0.0-1.0); %Eosinophils 0.3 % (0.0-10.0); %Lymphocytes 24.1 % (21.0-51.0); %Monocytes 14.9 % (0.0-10.0); %Neutrophils 60.1 % (42.0-75.0); Hemoglobin 10.9 g/dL (14.0-18.0); Mean Corpuscular HGB CONC 33.1 g/dL (32.0-36.0); Mean Corpuscular Hemoglobin 28.6 pg (27.0-31.0); Mean Corpuscular Volume 86.5 fL (78.0-98.0); Mean Platelet Volume 7.6 fL (7.4-10.4); Platelet Count 363 thou/uL (130-400); RBC Distribution Width 16.4 % (11.5-14.5); Red Blood Cell (RBC) Count 3.81 mill/uL (4.70-6.10); White Blood Cell (WBC) Count 13.6 thou/uL (4.8-10.8)
[2020-10-18] MEDS ORDERED: Ferrous Sulfate 325 MG TAB PO SCH (08:00)
[2020-10-18] MEDS: metFORMIN 500 MG TAB PO SCH ×2 (08:18→15:58)
[2020-10-18] MEDS: Pregabalin 75 MG CAP PO SCH ×2 (08:19→19:46)
[2020-10-18] MEDS ORDERED: Atorvastatin Calcium 40 MG TAB PO SCH (09:00)
[2020-10-18] MEDS ORDERED: Lisinopril 20 MG TAB PO SCH (09:00)
[2020-10-18] MEDS ORDERED: Finasteride 5 MG TAB PO SCH (09:00)
[2020-10-18] MEDS ORDERED: Famotidine 20 MG TAB PO SCH (09:00)
[2020-10-18] MEDS ORDERED: Amlodipine 5 MG TAB PO SCH (09:00)
[2020-10-18] MEDS ORDERED: Hydrochlorothiazide 25 MG TAB PO SCH (09:00)
[2020-10-18] MEDS ORDERED: Acetaminophen/Codeine 30-300mg Tablet ONE (12:37)
[2020-10-18 17:34] VITALS: BP 110/57; TEMP 98.7
== END 2020-10-18 20:15 | disposition home health service (06) | DRG 473 ==
LOC: SURG A 10-17 06:18 → EDSTATUS 10-17 13:15 → T4-A 10-17 20:04
PROVIDERS: ADMIT Neurological Surgery; ATTEND Neurological Surgery
PROC: 0RG1071 Fusion of Cervical Vertebral Joint with Autologous Tissue Substitute, Posterior Approach, Posterior Column, Open Approach (ICD-10-PCS; principal; 2020-10-17)
PROC: 00NW0ZZ Release Cervical Spinal Cord, Open Approach (ICD-10-PCS; 2020-10-17)
PROC: 0RB30ZZ Excision of Cervical Vertebral Disc, Open Approach (ICD-10-PCS; 2020-10-17)
PROC: 0RP10AZ Removal of Interbody Fusion Device from Cervical Vertebral Joint, Open Approach (ICD-10-PCS; 2020-10-17)
PROC: 0PB30ZZ Excision of Cervical Vertebra, Open Approach (ICD-10-PCS; 2020-10-17)
PROC: 0PR Upper Bones, Replacement (ICD-10-PCS; 2020-10-17)
DX: M47.12 Other spondylosis with myelopathy, cervical region (principal); Z20.822 Contact with and (suspected) exposure to COVID-19
CPT/HCPCS: 36415; 36416; 76000; 80048; 85025; C1713; C1776; J1100; J1956; J2370; J2405; J2704; J3010; J3490

== ENCOUNTER 2020-10-13 12:22 | Outpatient (CLI) | payer OTHER ==
[2020-10-13 13:20] LABS: Hemoglobin 10.4 g/dL (13.5-17.5); Mean Corpuscular HGB CONC 32.5 g/dL (32.0-36.0); Mean Corpuscular Hemoglobin 27.5 pg (27.0-33.0); Mean Corpuscular Volume 84.7 fl (81.2-95.1); Mean Platelet Volume 9.6 fl (7.4-10.4); Platelet Count 360 10x3/uL (150-450); RBC Distribution Width 17.5 % (11.5-14.5); Red Blood Cell (RBC) Count 3.78 10x6/uL (4.32-5.72); White Blood Cell (WBC) Count 8.7 10x3/uL (3.5-10.5)
[2020-10-13 13:33] LABS: Anion Gap 15 mmol/L (10-20); BUN (Urea Nitrogen) 17 mg/dL (8.4-25.7); Calc. Creatinine Clearance 0 mL/min (70-130); Calcium 9.4 mg/dL (7.8-10.44); Carbon Dioxide 24 mmol/L (23-31); Chloride 104 mmol/L (98-107); Glucose 90 mg/dL (80-115); Potassium 4.1 mmol/L (3.5-5.1); Sodium 139 mmol/L (136-145)
[2020-10-14 11:37] LABS: SARS-CoV-2 PCR by NAA Not Detected (NotDetected)
== END 2020-10-13 12:23 | disposition home or self-care (01) ==
LOC: LABBT 12:22
PROVIDERS: ATTEND Neurological Surgery
DX: Z01.818 Encounter for other preprocedural examination (principal); Z20.822 Contact with and (suspected) exposure to COVID-19; G95.9 Disease of spinal cord, unspecified
CPT/HCPCS: 80048; 85027; 87635; 93005; 93010; U0003; U0005

== ENCOUNTER 2020-11-07 09:36 | Emergency (ER) | payer OTHER ==
[2020-11-07 10:18] LABS: #Basophils 0.1 thou/uL (0.0-0.2); #Lymphocytes 3.6 thou/uL (1.20-3.40); #Neutrophils 7.3 thou/uL (1.40-6.50); %Basophils 0.7 % (0.0-1.0); %Eosinophils 0.3 % (0.0-10.0); %Monocytes 7.9 % (0.0-10.0); %Neutrophils 61.1 % (42.0-75.0); Hemoglobin 7.9 g/dL (14.0-18.0); Mean Corpuscular HGB CONC 34.8 g/dL (32.0-36.0); Mean Corpuscular Hemoglobin 29.4 pg (27.0-31.0); Mean Corpuscular Volume 84.6 fL (78.0-98.0); Platelet Count 577 thou/uL (130-400); RBC Distribution Width 13.6 % (11.5-14.5); Red Blood Cell (RBC) Count 2.69 mill/uL (4.70-6.10)
[2020-11-07 10:38] LABS: ALT (SGPT) 18 U/L (8-55); AST (SGOT) 29 U/L (5-34); Albumin 3.8 g/dL (3.4-4.8); Alkaline Phosphatase 62 U/L (40-110); Anion Gap 13 mmol/L (10-20); BUN (Urea Nitrogen) 25 mg/dL (8.4-25.7); Bilirubin, Total 0.3 mg/dL (0.2-1.2); CK (CPK) 183 U/L (30-200); Calc. Creatinine Clearance 0 mL/min (70-130); Calcium 10.1 mg/dL (7.8-10.44); Carbon Dioxide 23 mmol/L (23-31); Chloride 100 mmol/L (98-107); Globulin 3.5 g/dL (2.4-3.5); Glucose 96 mg/dL (80-115); Lipase 88 U/L (8-78); Magnesium 1.8 mg/dL (1.6-2.6); Potassium 3.3 mmol/L (3.5-5.1); Protein, Total 7.3 g/dL (5.8-8.1); Sodium 133 mmol/L (136-145)
[2020-11-07] MEDS ORDERED: Iopamidol-370 76% 500 ML 1 ML ONE (11:02)
[2020-11-07 11:24] LABS: Bilirubin Negative (Negative); Blood, Urine Negative (Negative); Clarity Clear (Clear); Glucose, Urine (Dipstick) Normal (Negative); Ketone, Urine 40 mg/dL (Negative); Leukocyte Negative Leu/uL (Negative); Nitrite Negative (Negative); Protein, Urine (Dipstick) Negative (Neg-Trace); Specific Gravity, Urine 1.019 (1.002-1.036); Urobilinogen Normal mg/dL (Less than 2); pH, Urine 5.5 (5.0-9.0)
== END 2020-11-07 13:00 | disposition home or self-care (01) ==
LOC: ERS 09:36
DX: R53.1 Weakness (principal); E78.5 Hyperlipidemia, unspecified; E11.42 Type 2 diabetes mellitus with diabetic polyneuropathy; F17.210 Nicotine dependence, cigarettes, uncomplicated; Z79.899 Other long term (current) drug therapy; Z79.82 Long term (current) use of aspirin
CPT/HCPCS: 36415; 71045; 74177; 80053; 81003; 82550; 83605; 83690; 83735; 83880; 84484; 85025; 87040; 87149; 93005; Q9967

== ENCOUNTER 2020-11-12 13:13 | Inpatient (IN) | payer OTHER ==
[2020-11-12 13:56] LABS: #Basophils 0.1 thou/uL (0.0-0.2); #Eosinphils 0.1 thou/uL (0.0-0.7); #Neutrophils 5.3 thou/uL (1.40-6.50); %Basophils 0.8 % (0.0-1.0); %Eosinophils 0.9 % (0.0-10.0); %Lymphocytes 31.3 % (21.0-51.0); %Neutrophils 55.9 % (42.0-75.0); Hemoglobin 9.1 g/dL (14.0-18.0); Mean Corpuscular HGB CONC 36.2 g/dL (32.0-36.0); Mean Corpuscular Volume 85.8 fL (78.0-98.0); Mean Platelet Volume 6.8 fL (7.4-10.4); Platelet Count 439 thou/uL (130-400); RBC Distribution Width 15.1 % (11.5-14.5); Red Blood Cell (RBC) Count 2.92 mill/uL (4.70-6.10); White Blood Cell (WBC) Count 9.4 thou/uL (4.8-10.8)
[2020-11-12] MEDS ORDERED: Pantoprazole 40 MG VIAL ONE (13:59)
[2020-11-12 14:09] LABS: INR-International Normal Ratio 1.2; Prothrombin Time 15.7 sec (12.0-14.7)
[2020-11-12] MEDS ORDERED: Pantoprazole 80 MG, Admixture Fee 1 EACH in Sodium Chloride 0.9% 100 ML IVPB SCH (14:15)
[2020-11-12 14:17] LABS: ALT (SGPT) 19 U/L (8-55); AST (SGOT) 26 U/L (5-34); Albumin 3.5 g/dL (3.4-4.8); Alkaline Phosphatase 59 U/L (40-110); Anion Gap 17 mmol/L (10-20); BUN (Urea Nitrogen) 33 mg/dL (8.4-25.7); Bilirubin, Total 0.3 mg/dL (0.2-1.2); Calc. Creatinine Clearance 0 mL/min (70-130); Carbon Dioxide 20 mmol/L (23-31); Chloride 99 mmol/L (98-107); Globulin 3.3 g/dL (2.4-3.5); Glucose 119 mg/dL (80-115); Potassium 3.7 mmol/L (3.5-5.1); Protein, Total 6.8 g/dL (5.8-8.1); Sodium 132 mmol/L (136-145)
[2020-11-12] MEDS ORDERED: Fentanyl 100 MCG/2 ML VIAL ONE (14:57)
[2020-11-12] MEDS ORDERED: cefTRIAXone\\ROCEPHIN 2 GM VIAL ONE (14:57)
[2020-11-12] MEDS ORDERED: Ondansetron ODT 4 MG TAB PO PRN (15:51)
[2020-11-12 16:04] LABS: SARS-CoV-2 NAA Rapid Test Not Detected (NotDetected)
[2020-11-12] MEDS ORDERED: Dextrose 50% Abboject 50 ML SYRINGE SLOW IVP PRN (16:12)
[2020-11-12] MEDS ORDERED: HumaLOG 300 UNITS/3 ML VIAL SC PRN ×2 (16:12)
[2020-11-12] MEDS ORDERED: Dextrose 5% in Water 1,000 ML IV PRN (16:12)
[2020-11-12] MEDS ORDERED: Pantoprazole 80 MG in Sodium Chloride 0.9% 100 ML IVPB SCH (16:15)
[2020-11-12 17:10] VITALS: BMI 28.0
[2020-11-12] MEDS: Lactated Ringer's 1,000 ML IV SCH ×2 (19:04→21:57)
[2020-11-12 20:58] LABS: Iron 195 ug/dL (65-175); Iron Binding Capacity, Total 270 mcg/dL (261-462)
[2020-11-12] MEDS: Atorvastatin Calcium 40 MG TAB PO SCH (21:38)
[2020-11-12] MEDS ORDERED: Dextrose 5%-Lactated Ringers 1,000 ML IV SCH (22:45)
[2020-11-13 02:07] LABS: #Basophils 0.1 thou/uL (0.0-0.2); #Eosinphils 0.2 thou/uL (0.0-0.7); #Lymphocytes 3.4 thou/uL (1.20-3.40); #Monocytes 1.5 thou/uL (0.11-0.59); #Neutrophils 7.7 thou/uL (1.40-6.50); %Basophils 0.8 % (0.0-1.0); %Eosinophils 1.3 % (0.0-10.0); %Lymphocytes 26.3 % (21.0-51.0); %Monocytes 11.9 % (0.0-10.0); %Neutrophils 59.7 % (42.0-75.0); Hemoglobin 10.1 g/dL (14.0-18.0); Mean Corpuscular HGB CONC 35.9 g/dL (32.0-36.0); Mean Corpuscular Hemoglobin 30.6 pg (27.0-31.0); Mean Corpuscular Volume 85.2 fL (78.0-98.0); Mean Platelet Volume 6.6 fL (7.4-10.4); Platelet Count 327 thou/uL (130-400); RBC Distribution Width 15.2 % (11.5-14.5); Red Blood Cell (RBC) Count 3.29 mill/uL (4.70-6.10); White Blood Cell (WBC) Count 12.8 thou/uL (4.8-10.8)
[2020-11-13 02:42] LABS: Anion Gap 14 mmol/L (10-20); BUN (Urea Nitrogen) 27 mg/dL (8.4-25.7); Calc. Creatinine Clearance 61 mL/min (70-130); Carbon Dioxide 17 mmol/L (23-31); Chloride 106 mmol/L (98-107); Potassium 3.2 mmol/L (3.5-5.1); Sodium 134 mmol/L (136-145)
[2020-11-13 02:43] LABS: Calcium 8.3 mg/dL (7.8-10.44); Glucose 101 mg/dL (80-115)
[2020-11-13 03:29] LABS: Ferritin 45.75 ng/mL (22-322)
[2020-11-13] MEDS: Lactated Ringer's 1,000 ML IV SCH ×2 (05:49→16:34)
[2020-11-13] MEDS ORDERED: Magnesium 2 GM/50 ML 2 GM in Premix Bag 1 BAG IVPB SCH (09:00)
[2020-11-13] MEDS ORDERED: Lidocaine 1% PF 5 ML VIAL ONE (09:15)
[2020-11-13] MEDS ORDERED: PROPOFOL 200 MG/20 ML VIAL ONE (09:15)
[2020-11-13] MEDS ORDERED: Promethazine HCl 25 MG/ML VIAL SLOW IVP PRN (09:33)
[2020-11-13] MEDS ORDERED: Promethazine HCl 25 MG/ML VIAL IM PRN (09:33)
[2020-11-13] MEDS ORDERED: Ondansetron HCl/PF 4 MG/2 ML Vial IVP PRN (09:33)
[2020-11-13] MEDS ORDERED: Fentanyl 100 MCG/2 ML VIAL ONE (09:46)
[2020-11-13] MEDS: Finasteride 5 MG TAB PO SCH (10:59)
[2020-11-13] MEDS: Potassium Chloride 20 MEQ in Premix Bag 1 BAG IVPB SCH ×2 (10:59→21:13)
[2020-11-13] MEDS ORDERED: GoLYTELY 4,000 ml Bottle PO SCH (15:00)
[2020-11-13 16:20] LABS: Hemoglobin 10.3 g/dL (14.0-18.0)
[2020-11-13] MEDS: Acetaminophen/Codeine 30-300mg Tablet PO PRN (16:42)
[2020-11-13] MEDS: Atorvastatin Calcium 40 MG TAB PO SCH (21:13)
[2020-11-14] MEDS: Lactated Ringer's 1,000 ML IV SCH ×3 (01:14→12:52)
[2020-11-14 06:16] LABS: #Basophils 0.1 thou/uL (0.0-0.2); #Eosinphils 0.1 thou/uL (0.0-0.7); #Lymphocytes 2.1 thou/uL (1.20-3.40); #Monocytes 1.1 thou/uL (0.11-0.59); %Basophils 0.8 % (0.0-1.0); %Eosinophils 1.4 % (0.0-10.0); %Lymphocytes 22.4 % (21.0-51.0); %Monocytes 11.5 % (0.0-10.0); %Neutrophils 64.1 % (42.0-75.0); Hemoglobin 9.6 g/dL (14.0-18.0); Mean Corpuscular HGB CONC 34.3 g/dL (32.0-36.0); Mean Corpuscular Hemoglobin 29.8 pg (27.0-31.0); Mean Corpuscular Volume 86.8 fL (78.0-98.0); Mean Platelet Volume 6.7 fL (7.4-10.4); Platelet Count 336 thou/uL (130-400); RBC Distribution Width 15.2 % (11.5-14.5); Red Blood Cell (RBC) Count 3.21 mill/uL (4.70-6.10); White Blood Cell (WBC) Count 9.4 thou/uL (4.8-10.8)
[2020-11-14 06:41] LABS: Anion Gap 12 mmol/L (10-20); BUN (Urea Nitrogen) 10 mg/dL (8.4-25.7); Calc. Creatinine Clearance 118 mL/min (70-130); Calcium 8.6 mg/dL (7.8-10.44); Carbon Dioxide 20 mmol/L (23-31); Chloride 108 mmol/L (98-107); Glucose 91 mg/dL (80-115); Potassium 3.5 mmol/L (3.5-5.1); Sodium 136 mmol/L (136-145)
[2020-11-14] MEDS ORDERED: GoLYTELY 4,000 ml Bottle PO SCH (10:00)
[2020-11-14] MEDS: Acetaminophen/Codeine 30-300mg Tablet PO PRN ×3 (10:01→21:21)
[2020-11-14] MEDS: Finasteride 5 MG TAB PO SCH (10:01)
[2020-11-14] MEDS: Pregabalin 75 MG CAP PO SCH ×2 (10:02→21:20)
[2020-11-14] MEDS: Lidocaine 5% Patch TD SCH (10:04)
[2020-11-14] MEDS: Diclofenac 1% 100 GM GEL TP SCH ×4 (10:06→21:22)
[2020-11-14] MEDS: metFORMIN 500 MG TAB PO SCH (17:22)
[2020-11-14] MEDS ORDERED: tiZANidine HCl 4 MG TAB PO PRN (18:01)
[2020-11-14] MEDS ORDERED: Non-Formulary Item 1 EACH (Metformin Hcl [Metformin Hcl] 1,000 MG Tablet) PO SCH (21:00)
[2020-11-14] MEDS ORDERED: Non-Formulary Item 1 EACH (Pregabalin [Lyrica] 150 MG Cap) PO SCH (21:00)
[2020-11-14] MEDS: Transdermal Patch Removal TOP SCH (21:22)
[2020-11-14] MEDS: Atorvastatin Calcium 40 MG TAB PO SCH (21:22)
[2020-11-14] MEDS ORDERED: tiZANidine HCl 4 MG TAB PO SCH (21:30)
[2020-11-15] MEDS: Lactated Ringer's 1,000 ML IV SCH (01:49)
[2020-11-15] MEDS ORDERED: Dextrose 5%-Lactated Ringers 1,000 ML IV SCH (04:30)
[2020-11-15 06:30] LABS: #Basophils 0.1 thou/uL (0.0-0.2); #Eosinphils 0.2 thou/uL (0.0-0.7); #Lymphocytes 2.8 thou/uL (1.20-3.40); #Monocytes 1.3 thou/uL (0.11-0.59); #Neutrophils 5.6 thou/uL (1.40-6.50); %Basophils 0.6 % (0.0-1.0); %Eosinophils 2.3 % (0.0-10.0); %Lymphocytes 27.9 % (21.0-51.0); %Monocytes 13.1 % (0.0-10.0); %Neutrophils 56.1 % (42.0-75.0); Hemoglobin 9.5 g/dL (14.0-18.0); Mean Corpuscular HGB CONC 34.9 g/dL (32.0-36.0); Mean Corpuscular Hemoglobin 30.3 pg (27.0-31.0); Mean Corpuscular Volume 86.9 fL (78.0-98.0); Mean Platelet Volume 6.8 fL (7.4-10.4); Platelet Count 295 thou/uL (130-400); RBC Distribution Width 15.3 % (11.5-14.5); Red Blood Cell (RBC) Count 3.12 mill/uL (4.70-6.10); White Blood Cell (WBC) Count 9.9 thou/uL (4.8-10.8)
[2020-11-15] MEDS: Acetaminophen/Codeine 30-300mg Tablet PO PRN ×3 (06:33→21:37)
[2020-11-15 07:00] LABS: Anion Gap 10 mmol/L (10-20); BUN (Urea Nitrogen) 6 mg/dL (8.4-25.7); Calc. Creatinine Clearance 125 mL/min (70-130); Calcium 8.5 mg/dL (7.8-10.44); Carbon Dioxide 24 mmol/L (23-31); Chloride 108 mmol/L (98-107); Glucose 101 mg/dL (80-115); Potassium 3.3 mmol/L (3.5-5.1); Sodium 139 mmol/L (136-145)
[2020-11-15] MEDS ORDERED: Potassium Chloride 20 MEQ TAB PO SCH (08:00)
[2020-11-15] MEDS: Diclofenac 1% 100 GM GEL TP SCH ×5 (08:31→21:40)
[2020-11-15] MEDS: metFORMIN 500 MG TAB PO SCH ×2 (08:32→16:56)
[2020-11-15] MEDS: tiZANidine HCl 4 MG TAB PO SCH ×3 (08:37→21:36)
[2020-11-15] MEDS: Lisinopril 20 MG TAB PO SCH (08:37)
[2020-11-15] MEDS: Finasteride 5 MG TAB PO SCH (08:38)
[2020-11-15] MEDS: Pregabalin 75 MG CAP PO SCH ×2 (08:38→21:36)
[2020-11-15] MEDS ORDERED: Non-Formulary Item 1 EACH (Lisinopril [Lisinopril] 40 MG Tablet) PO SCH (09:00)
[2020-11-15] MEDS: Lidocaine 5% Patch TD SCH (10:37)
[2020-11-15] MEDS ORDERED: PROPOFOL 200 MG/20 ML VIAL ONE (12:13)
[2020-11-15] MEDS ORDERED: ePHEDrine Sulfate 50 MG/10 ML VIAL ONE (12:13)
[2020-11-15] MEDS: Atorvastatin Calcium 40 MG TAB PO SCH (21:37)
[2020-11-15] MEDS: Transdermal Patch Removal TOP SCH (21:41)
[2020-11-16 06:05] LABS: #Basophils 0.1 thou/uL (0.0-0.2); #Eosinphils 0.3 thou/uL (0.0-0.7); #Lymphocytes 3.4 thou/uL (1.20-3.40); #Neutrophils 4.8 thou/uL (1.40-6.50); %Basophils 0.8 % (0.0-1.0); %Lymphocytes 35.8 % (21.0-51.0); %Monocytes 10.1 % (0.0-10.0); %Neutrophils 50.3 % (42.0-75.0); Hemoglobin 9.2 g/dL (14.0-18.0); Mean Corpuscular HGB CONC 35.3 g/dL (32.0-36.0); Mean Platelet Volume 6.6 fL (7.4-10.4); Platelet Count 280 thou/uL (130-400); RBC Distribution Width 15.3 % (11.5-14.5); Red Blood Cell (RBC) Count 2.97 mill/uL (4.70-6.10); White Blood Cell (WBC) Count 9.5 thou/uL (4.8-10.8)
[2020-11-16 06:29] LABS: Anion Gap 11 mmol/L (10-20); BUN (Urea Nitrogen) 4 mg/dL (8.4-25.7); Calc. Creatinine Clearance 127 mL/min (70-130); Calcium 8.2 mg/dL (7.8-10.44); Carbon Dioxide 25 mmol/L (23-31); Chloride 108 mmol/L (98-107); Glucose 83 mg/dL (80-115); Potassium 3.8 mmol/L (3.5-5.1); Sodium 140 mmol/L (136-145)
[2020-11-16] MEDS: Pregabalin 75 MG CAP PO SCH ×2 (08:50→20:37)
[2020-11-16] MEDS: Acetaminophen/Codeine 30-300mg Tablet PO PRN ×3 (08:51→22:08)
[2020-11-16] MEDS: metFORMIN 500 MG TAB PO SCH ×3 (08:51→16:38)
[2020-11-16] MEDS: Lisinopril 20 MG TAB PO SCH (08:51)
[2020-11-16] MEDS: Finasteride 5 MG TAB PO SCH (08:52)
[2020-11-16] MEDS: Diclofenac 1% 100 GM GEL TP SCH ×4 (08:52→20:39)
[2020-11-16] MEDS: tiZANidine HCl 4 MG TAB PO SCH ×3 (08:52→20:36)
[2020-11-16] MEDS: Lidocaine 5% Patch TD SCH (08:53)
[2020-11-16] MEDS: Atorvastatin Calcium 40 MG TAB PO SCH (20:38)
[2020-11-16] MEDS: Transdermal Patch Removal TOP SCH (20:40)
[2020-11-17] MEDS: Acetaminophen/Codeine 30-300mg Tablet PO PRN ×4 (05:54→22:31)
[2020-11-17] MEDS ORDERED: Diclofenac 1% 100 GM GEL TP PRN (06:12)
[2020-11-17 06:30] LABS: #Eosinphils 0.2 thou/uL (0.0-0.7); #Lymphocytes 2.5 thou/uL (1.20-3.40); #Monocytes 0.8 thou/uL (0.11-0.59); #Neutrophils 4.5 thou/uL (1.40-6.50); %Basophils 0.5 % (0.0-1.0); %Lymphocytes 31.3 % (21.0-51.0); %Monocytes 9.6 % (0.0-10.0); %Neutrophils 55.6 % (42.0-75.0); Hemoglobin 9.7 g/dL (14.0-18.0); Mean Corpuscular HGB CONC 33.4 g/dL (32.0-36.0); Mean Corpuscular Hemoglobin 29.8 pg (27.0-31.0); Mean Corpuscular Volume 89.4 fL (78.0-98.0); Platelet Count 311 thou/uL (130-400); Red Blood Cell (RBC) Count 3.26 mill/uL (4.70-6.10); White Blood Cell (WBC) Count 8.1 thou/uL (4.8-10.8)
[2020-11-17 06:44] LABS: Anion Gap 9 mmol/L (10-20); BUN (Urea Nitrogen) 5 mg/dL (8.4-25.7); Calc. Creatinine Clearance 123 mL/min (70-130); Calcium 8.8 mg/dL (7.8-10.44); Carbon Dioxide 27 mmol/L (23-31); Chloride 110 mmol/L (98-107); Glucose 83 mg/dL (80-115); Potassium 3.8 mmol/L (3.5-5.1); Sodium 142 mmol/L (136-145)
[2020-11-17 07:43] LABS: Hemoglobin A1c 4.9 % (4.0-6.0)
[2020-11-17] MEDS: Pregabalin 75 MG CAP PO SCH ×2 (07:52→20:35)
[2020-11-17] MEDS: metFORMIN 500 MG TAB PO SCH (07:52)
[2020-11-17] MEDS: Finasteride 5 MG TAB PO SCH (07:52)
[2020-11-17] MEDS: Lisinopril 20 MG TAB PO SCH (07:53)
[2020-11-17] MEDS: tiZANidine HCl 4 MG TAB PO SCH ×3 (07:53→20:35)
[2020-11-17] MEDS: Fluticasone Propionate Nasal Spray 16 gm Bottle NASAL SCH (07:53)
[2020-11-17] MEDS: Lidocaine 5% Patch TD SCH (07:53)
[2020-11-17] MEDS: Transdermal Patch Removal TOP SCH (20:35)
[2020-11-17] MEDS: Atorvastatin Calcium 40 MG TAB PO SCH (20:36)
[2020-11-18 06:15] LABS: #Basophils 0.1 thou/uL (0.0-0.2); #Eosinphils 0.3 thou/uL (0.0-0.7); #Lymphocytes 3.3 thou/uL (1.20-3.40); #Monocytes 0.7 thou/uL (0.11-0.59); #Neutrophils 4.3 thou/uL (1.40-6.50); %Basophils 0.7 % (0.0-1.0); %Eosinophils 3.7 % (0.0-10.0); %Lymphocytes 37.8 % (21.0-51.0); %Monocytes 8.5 % (0.0-10.0); %Neutrophils 49.3 % (42.0-75.0); Hemoglobin 9.6 g/dL (14.0-18.0); Mean Corpuscular HGB CONC 32.9 g/dL (32.0-36.0); Mean Corpuscular Volume 88.1 fL (78.0-98.0); Mean Platelet Volume 6.7 fL (7.4-10.4); Platelet Count 289 thou/uL (130-400); RBC Distribution Width 14.9 % (11.5-14.5); Red Blood Cell (RBC) Count 3.31 mill/uL (4.70-6.10); White Blood Cell (WBC) Count 8.6 thou/uL (4.8-10.8)
[2020-11-18] MEDS: Acetaminophen/Codeine 30-300mg Tablet PO PRN ×3 (06:28→19:57)
[2020-11-18 06:35] LABS: Anion Gap 9 mmol/L (10-20); BUN (Urea Nitrogen) 6 mg/dL (8.4-25.7); Calc. Creatinine Clearance 118 mL/min (70-130); Calcium 8.5 mg/dL (7.8-10.44); Carbon Dioxide 26 mmol/L (23-31); Chloride 109 mmol/L (98-107); Glucose 82 mg/dL (80-115); Potassium 3.8 mmol/L (3.5-5.1); Sodium 140 mmol/L (136-145)
[2020-11-18] MEDS: Fluticasone Propionate Nasal Spray 16 gm Bottle NASAL SCH (07:56)
[2020-11-18] MEDS: Lisinopril 20 MG TAB PO SCH (07:57)
[2020-11-18] MEDS: Pregabalin 75 MG CAP PO SCH ×2 (07:57→19:57)
[2020-11-18] MEDS: tiZANidine HCl 4 MG TAB PO SCH ×3 (07:57→19:57)
[2020-11-18] MEDS: Finasteride 5 MG TAB PO SCH (07:57)
[2020-11-18] MEDS: Lidocaine 5% Patch TD SCH (07:58)
[2020-11-18] MEDS: Carbamide Peroxide 6.5% Otic Drops 15 ml Bottle EA EAR SCH (19:48)
[2020-11-18] MEDS: Transdermal Patch Removal TOP SCH (19:50)
[2020-11-18] MEDS: Atorvastatin Calcium 40 MG TAB PO SCH (19:57)
[2020-11-18] MEDS: guaiFENesin ER 600 MG TAB PO SCH (19:57)
[2020-11-19] MEDS: Acetaminophen/Codeine 30-300mg Tablet PO PRN ×2 (05:31→17:54)
[2020-11-19 06:15] LABS: #Basophils 0.1 thou/uL (0.0-0.2); #Eosinphils 0.3 thou/uL (0.0-0.7); #Lymphocytes 3.2 thou/uL (1.20-3.40); #Monocytes 0.7 thou/uL (0.11-0.59); #Neutrophils 4.4 thou/uL (1.40-6.50); %Basophils 0.8 % (0.0-1.0); %Eosinophils 3.8 % (0.0-10.0); %Lymphocytes 36.7 % (21.0-51.0); %Monocytes 8.2 % (0.0-10.0); %Neutrophils 50.5 % (42.0-75.0); Hemoglobin 10.7 g/dL (14.0-18.0); Mean Corpuscular HGB CONC 32.9 g/dL (32.0-36.0); Mean Corpuscular Hemoglobin 29.2 pg (27.0-31.0); Mean Corpuscular Volume 88.8 fL (78.0-98.0); Mean Platelet Volume 6.8 fL (7.4-10.4); Platelet Count 306 thou/uL (130-400); RBC Distribution Width 14.8 % (11.5-14.5); Red Blood Cell (RBC) Count 3.65 mill/uL (4.70-6.10); White Blood Cell (WBC) Count 8.8 thou/uL (4.8-10.8)
[2020-11-19 06:39] LABS: Anion Gap 9 mmol/L (10-20); BUN (Urea Nitrogen) 6 mg/dL (8.4-25.7); Calc. Creatinine Clearance 117 mL/min (70-130); Calcium 8.9 mg/dL (7.8-10.44); Carbon Dioxide 29 mmol/L (23-31); Chloride 108 mmol/L (98-107); Glucose 82 mg/dL (80-115); Sodium 142 mmol/L (136-145)
[2020-11-19] MEDS: Lidocaine 5% Patch TD SCH (08:20)
[2020-11-19] MEDS: tiZANidine HCl 4 MG TAB PO SCH ×3 (08:20→20:44)
[2020-11-19] MEDS: Pregabalin 75 MG CAP PO SCH ×2 (08:20→20:45)
[2020-11-19] MEDS: Lisinopril 20 MG TAB PO SCH (08:20)
[2020-11-19] MEDS: guaiFENesin ER 600 MG TAB PO SCH ×2 (08:21→20:45)
[2020-11-19] MEDS: Finasteride 5 MG TAB PO SCH (08:21)
[2020-11-19] MEDS: Fluticasone Propionate Nasal Spray 16 gm Bottle NASAL SCH (08:22)
[2020-11-19] MEDS: Carbamide Peroxide 6.5% Otic Drops 15 ml Bottle EA EAR SCH ×2 (11:46→20:45)
[2020-11-19] MEDS: Polyethylene Glycol 3350 17 GM Packet PO PRN (18:35)
[2020-11-19] MEDS: Transdermal Patch Removal TOP SCH (19:10)
[2020-11-19] MEDS: Atorvastatin Calcium 40 MG TAB PO SCH (20:45)
[2020-11-20] MEDS: Acetaminophen/Codeine 30-300mg Tablet PO PRN ×3 (00:47→15:24)
[2020-11-20] MEDS: Finasteride 5 MG TAB PO SCH (08:07)
[2020-11-20] MEDS: Lisinopril 20 MG TAB PO SCH (08:07)
[2020-11-20] MEDS: tiZANidine HCl 4 MG TAB PO SCH ×3 (08:07→20:19)
[2020-11-20] MEDS: guaiFENesin ER 600 MG TAB PO SCH ×2 (08:07→20:19)
[2020-11-20] MEDS: Pregabalin 75 MG CAP PO SCH ×2 (08:07→20:19)
[2020-11-20] MEDS: Amlodipine 5 MG TAB PO SCH (08:08)
[2020-11-20] MEDS: Lidocaine 5% Patch TD SCH (08:09)
[2020-11-20] MEDS: Fluticasone Propionate Nasal Spray 16 gm Bottle NASAL SCH (08:16)
[2020-11-20] MEDS: Carbamide Peroxide 6.5% Otic Drops 15 ml Bottle EA EAR SCH ×2 (08:16→20:20)
[2020-11-20] MEDS: Polyethylene Glycol 3350 17 GM Packet PO PRN (08:16)
[2020-11-20] MEDS: Atorvastatin Calcium 40 MG TAB PO SCH (20:19)
[2020-11-20] MEDS: Transdermal Patch Removal TOP SCH (20:21)
[2020-11-21] MEDS ORDERED: Bisacodyl 5 MG TAB PO PRN (07:20)
[2020-11-21] MEDS: tiZANidine HCl 4 MG TAB PO SCH ×3 (08:00→20:50)
[2020-11-21] MEDS: Amlodipine 5 MG TAB PO SCH (08:00)
[2020-11-21] MEDS: Lisinopril 20 MG TAB PO SCH (08:00)
[2020-11-21] MEDS: Polyethylene Glycol 3350 17 GM Packet PO SCH (08:00)
[2020-11-21] MEDS: Pregabalin 75 MG CAP PO SCH ×2 (08:01→20:49)
[2020-11-21] MEDS: guaiFENesin ER 600 MG TAB PO SCH ×2 (08:01→20:51)
[2020-11-21] MEDS: Finasteride 5 MG TAB PO SCH (08:01)
[2020-11-21] MEDS: Acetaminophen/Codeine 30-300mg Tablet PO PRN ×2 (08:06→20:51)
[2020-11-21] MEDS: Fluticasone Propionate Nasal Spray 16 gm Bottle NASAL SCH (08:07)
[2020-11-21] MEDS: Carbamide Peroxide 6.5% Otic Drops 15 ml Bottle EA EAR SCH ×2 (08:07→20:51)
[2020-11-21] MEDS: Lidocaine 5% Patch TD SCH (08:14)
[2020-11-21] MEDS ORDERED: Hydrochlorothiazide 25 MG TAB PO SCH (09:00)
[2020-11-21] MEDS: Atorvastatin Calcium 40 MG TAB PO SCH (20:51)
[2020-11-21] MEDS: Transdermal Patch Removal TOP SCH (20:52)
[2020-11-22] MEDS: tiZANidine HCl 4 MG TAB PO SCH ×3 (08:35→20:22)
[2020-11-22] MEDS: Pregabalin 75 MG CAP PO SCH ×2 (08:36→20:22)
[2020-11-22] MEDS: guaiFENesin ER 600 MG TAB PO SCH ×2 (08:36→20:22)
[2020-11-22] MEDS: Lisinopril 20 MG TAB PO SCH (08:36)
[2020-11-22] MEDS: Lidocaine 5% Patch TD SCH (08:37)
[2020-11-22] MEDS: Amlodipine 5 MG TAB PO SCH (08:37)
[2020-11-22] MEDS: Polyethylene Glycol 3350 17 GM Packet PO SCH (08:37)
[2020-11-22] MEDS: Fluticasone Propionate Nasal Spray 16 gm Bottle NASAL SCH (08:37)
[2020-11-22] MEDS: Finasteride 5 MG TAB PO SCH (08:37)
[2020-11-22] MEDS: Carbamide Peroxide 6.5% Otic Drops 15 ml Bottle EA EAR SCH ×2 (08:38→20:23)
[2020-11-22] MEDS: Acetaminophen/Codeine 30-300mg Tablet PO PRN ×3 (08:43→20:22)
[2020-11-22] MEDS: Atorvastatin Calcium 40 MG TAB PO SCH (20:22)
[2020-11-22] MEDS ORDERED: Hydrochlorothiazide 25 MG TAB PO SCH (21:00)
[2020-11-22] MEDS: Transdermal Patch Removal TOP SCH (21:26)
[2020-11-23] MEDS: Acetaminophen/Codeine 30-300mg Tablet PO PRN ×2 (02:29→07:42)
[2020-11-23] MEDS: tiZANidine HCl 4 MG TAB PO SCH ×2 (08:48→16:17)
[2020-11-23] MEDS: guaiFENesin ER 600 MG TAB PO SCH (08:48)
[2020-11-23] MEDS: Pregabalin 75 MG CAP PO SCH (08:49)
[2020-11-23] MEDS: Finasteride 5 MG TAB PO SCH (08:50)
[2020-11-23] MEDS: Fluticasone Propionate Nasal Spray 16 gm Bottle NASAL SCH (08:56)
[2020-11-23] MEDS: Carbamide Peroxide 6.5% Otic Drops 15 ml Bottle EA EAR SCH (08:56)
[2020-11-23] MEDS: Lidocaine 5% Patch TD SCH (08:56)
[2020-11-23] MEDS: Polyethylene Glycol 3350 17 GM Packet PO SCH (08:57)
[2020-11-23] MEDS ORDERED: Acetaminophen/Codeine 30-300mg Tablet PO PRN (12:04)
[2020-11-23] MEDS: Lisinopril 20 MG TAB PO SCH (12:05)
[2020-11-23] MEDS: Amlodipine 5 MG TAB PO SCH (12:06)
[2020-11-23 19:23] VITALS: BP 108/70; TEMP 98.4
== END 2020-11-23 20:17 | DRG 378 ==
LOC: ERS 13:13 → IMCU/EMU 15:51 → T4-A 11-13 17:59
PROVIDERS: ADMIT Family Medicine; ATTEND Family Medicine
PROC: 30233N1 Transfusion of Nonautologous Red Blood Cells into Peripheral Vein, Percutaneous Approach (ICD-10-PCS; 2020-11-12)
PROC: 0DB78ZX Excision of Stomach, Pylorus, Via Natural or Artificial Opening Endoscopic, Diagnostic (ICD-10-PCS; principal; 2020-11-13)
PROC: 0DJD8ZZ Inspection of Lower Intestinal Tract, Via Natural or Artificial Opening Endoscopic (ICD-10-PCS; 2020-11-15)
DX: K92.2 Gastrointestinal hemorrhage, unspecified (principal); D62 Acute posthemorrhagic anemia; N17.9 Acute kidney failure, unspecified; E78.5 Hyperlipidemia, unspecified; F17.210 Nicotine dependence, cigarettes, uncomplicated; I95.89 Other hypotension; E11.42 Type 2 diabetes mellitus with diabetic polyneuropathy; F41.9 Anxiety disorder, unspecified; F31.9 Bipolar disorder, unspecified; E11.51 Type 2 diabetes mellitus with diabetic peripheral angiopathy without gangrene; R13.10 Dysphagia, unspecified; M48.00 Spinal stenosis, site unspecified; K29.80 Duodenitis without bleeding; R91.8 Other nonspecific abnormal finding of lung field; K57.30 Diverticulosis of large intestine without perforation or abscess without bleeding; D17.5 Benign lipomatous neoplasm of intra-abdominal organs; T46.5X5A Adverse effect of other antihypertensive drugs, initial encounter; G89.29 Other chronic pain; K29.40 Chronic atrophic gastritis without bleeding; M54.2 Cervicalgia; I95.2 Hypotension due to drugs; K55.20 Angiodysplasia of colon without hemorrhage; Z79.899 Other long term (current) drug therapy; Z74.01 Bed confinement status; Z79.82 Long term (current) use of aspirin; Z79.84 Long term (current) use of oral hypoglycemic drugs; Z86.73 Personal history of transient ischemic attack (TIA), and cerebral infarction without residual deficits; Z88.0 Allergy status to penicillin
CPT/HCPCS: 0240U; 36415; 36416; 36430; 71045; 74176; 74230; 80048; 80053; 82274; 82607; 82728; 82746; 83036; 83540; 83550; 83735; 84100; 84145; 84484; 85025; 85610; 86850; 86900; 86901; 87040; 88305; 88342; 93005; 96361; 96365; 96366; 96375; 96376; C9113; J0696; J2704; J3010; J3475; J3480; J3490; P9016

== ENCOUNTER 2021-03-17 17:12 | Emergency (ER) | payer OTHER ==
[~2021-03-17 17:12] MED LIST changes: -Gadobenate Dimeglumine 529 MG/1 ML (20ML VIAL) ONE; +Iopamidol-370 76% 500 ML 1 ML ONE
[2021-03-17 19:01] LABS: #Basophils 0.1 thou/uL (0.0-0.2); #Eosinphils 0.2 thou/uL (0.0-0.7); #Lymphocytes 3.7 thou/uL (1.20-3.40); #Monocytes 0.8 thou/uL (0.11-0.59); #Neutrophils 4.7 thou/uL (1.40-6.50); %Basophils 1.3 % (0.0-1.0); %Eosinophils 2.2 % (0.0-10.0); %Lymphocytes 39.1 % (21.0-51.0); %Monocytes 8.5 % (0.0-10.0); Hemoglobin 14.1 g/dL (14.0-18.0); Mean Corpuscular HGB CONC 34.3 g/dL (32.0-36.0); Mean Corpuscular Hemoglobin 30.1 pg (27.0-31.0); Mean Corpuscular Volume 87.5 fL (78.0-98.0); Mean Platelet Volume 6.9 fL (7.4-10.4); Platelet Count 337 thou/uL (130-400); RBC Distribution Width 13.7 % (11.5-14.5); Red Blood Cell (RBC) Count 4.68 mill/uL (4.70-6.10); White Blood Cell (WBC) Count 9.5 thou/uL (4.8-10.8)
[2021-03-17 19:39] LABS: ALT (SGPT) 20 U/L (8-55); AST (SGOT) 23 U/L (5-34); Alkaline Phosphatase 56 U/L (40-110); Anion Gap 13 mmol/L (10-20); BUN (Urea Nitrogen) 10 mg/dL (8.4-25.7); Bilirubin, Total 0.3 mg/dL (0.2-1.2); Calc. Creatinine Clearance 0 mL/min (70-130); Calcium 9.8 mg/dL (7.8-10.44); Carbon Dioxide 24 mmol/L (23-31); Chloride 106 mmol/L (98-107); Globulin 3.4 g/dL (2.4-3.5); Glucose 80 mg/dL (80-115); Lipase 35 U/L (8-78); Potassium 4.2 mmol/L (3.5-5.1); Protein, Total 7.4 g/dL (5.8-8.1); Sodium 139 mmol/L (136-145)
[2021-03-17 23:56] LABS: Bilirubin Negative (Negative); Blood, Urine Negative (Negative); Clarity Clear (Clear); Glucose, Urine (Dipstick) Normal (Negative); Ketone, Urine Negative (Negative); Leukocyte Negative Leu/uL (Negative); Nitrite Negative (Negative); Protein, Urine (Dipstick) Negative (Neg-Trace); Urobilinogen Normal mg/dL (Less than 2)
== END 2021-03-17 23:54 | disposition home or self-care (01) ==
LOC: ERS 17:12
DX: R10.9 Unspecified abdominal pain (principal); R19.7 Diarrhea, unspecified; R00.1 Bradycardia, unspecified; E78.5 Hyperlipidemia, unspecified; E11.42 Type 2 diabetes mellitus with diabetic polyneuropathy; F17.210 Nicotine dependence, cigarettes, uncomplicated; Z86.73 Personal history of transient ischemic attack (TIA), and cerebral infarction without residual deficits
CPT/HCPCS: 36415; 74177; 80053; 81003; 83690; 84484; 85025; Q9967

== ENCOUNTER 2021-05-04 17:10 | Outpatient (CLI) | payer OTHER ==
[2021-05-05 17:37] LABS: SARS-CoV-2 PCR by NAA Not Detected (NotDetected)
== END 2021-05-04 17:11 | disposition home or self-care (01) ==
LOC: LABBT 17:10
PROVIDERS: ATTEND Internal Medicine Gastroenterology
DX: Z01.812 Encounter for preprocedural laboratory examination (principal); Z20.822 Contact with and (suspected) exposure to COVID-19
CPT/HCPCS: U0003; U0005

== ENCOUNTER 2021-05-08 06:55 | Day surgery (SDC) | payer OTHER ==
[2021-05-05 12:17] VITALS: BMI 30.7
[2021-05-08] MEDS ORDERED: PROPOFOL 200 MG/20 ML VIAL ONE (09:00)
== END 2021-05-08 10:32 | disposition home or self-care (01) ==
LOC: SDC 06:55
PROVIDERS: ATTEND Internal Medicine Gastroenterology
PROC: 0W3P8ZZ Control Bleeding in Gastrointestinal Tract, Via Natural or Artificial Opening Endoscopic (ICD-10-PCS; principal; 2021-05-08)
PROC: 0DBL8ZX Excision of Transverse Colon, Via Natural or Artificial Opening Endoscopic, Diagnostic (ICD-10-PCS; principal; 2021-05-08)
PROC: 0DBK8ZX Excision of Ascending Colon, Via Natural or Artificial Opening Endoscopic, Diagnostic (ICD-10-PCS; principal; 2021-05-08)
DX: D12.3 Benign neoplasm of transverse colon (principal); K63.5 Polyp of colon; K55.21 Angiodysplasia of colon with hemorrhage; K57.31 Diverticulosis of large intestine without perforation or abscess with bleeding; D17.5 Benign lipomatous neoplasm of intra-abdominal organs; D64.9 Anemia, unspecified; I10 Essential (primary) hypertension; E11.9 Type 2 diabetes mellitus without complications; E78.5 Hyperlipidemia, unspecified; Z86.73 Personal history of transient ischemic attack (TIA), and cerebral infarction without residual deficits; Z79.02 Long term (current) use of antithrombotics/antiplatelets; Z79.82 Long term (current) use of aspirin; Z79.84 Long term (current) use of oral hypoglycemic drugs; Z79.899 Other long term (current) drug therapy; Z88.0 Allergy status to penicillin; Z98.1 Arthrodesis status
CPT/HCPCS: 88305; J2704

== ENCOUNTER 2021-07-11 09:42 | Outpatient (CLI) | payer OTHER | END 2021-07-11 09:43 | disposition home or self-care (01) | LOC: TBSIIMAG 09:42 | PROVIDERS: ATTEND Neurological Surgery | DX: M48.8X2 Other specified spondylopathies, cervical region (principal); M48.02 Spinal stenosis, cervical region; M47.812 Spondylosis without myelopathy or radiculopathy, cervical region; Z98.890 Other specified postprocedural states | CPT/HCPCS: 72141; 72156 ==

== ENCOUNTER 2021-07-12 13:18 | Outpatient (CLI) | payer OTHER | END 2021-07-12 13:19 | disposition home or self-care (01) | LOC: TBSIIMAG 13:18 | PROVIDERS: ATTEND Neurological Surgery | DX: M48.02 Spinal stenosis, cervical region (principal); M47.812 Spondylosis without myelopathy or radiculopathy, cervical region; Z98.1 Arthrodesis status | CPT/HCPCS: 72040 ==

== ENCOUNTER 2021-11-24 01:23 | Emergency (ER) | payer OTHER ==
[2021-11-24] MEDS ORDERED: Ketorolac Tromethamine 30 MG/ML VIAL ONE (02:38)
[2021-11-24] MEDS ORDERED: Acetaminophen 500 MG TAB ONE (02:38)
== END 2021-11-24 03:04 | disposition home or self-care (01) ==
LOC: ERS 01:23
DX: M54.6 Pain in thoracic spine (principal); G89.29 Other chronic pain; E78.5 Hyperlipidemia, unspecified; E11.42 Type 2 diabetes mellitus with diabetic polyneuropathy; F17.210 Nicotine dependence, cigarettes, uncomplicated; Z86.73 Personal history of transient ischemic attack (TIA), and cerebral infarction without residual deficits; Z79.82 Long term (current) use of aspirin; Z79.899 Other long term (current) drug therapy
CPT/HCPCS: 93005; 96372; J1885

== ENCOUNTER 2022-08-06 11:16 | Emergency (ER) | payer OTHER | END 2022-08-06 11:57 | disposition home or self-care (01) | LOC: ERS 11:16 | DX: J68.3 Other acute and subacute respiratory conditions due to chemicals, gases, fumes and vapors (principal); E78.5 Hyperlipidemia, unspecified; E11.9 Type 2 diabetes mellitus without complications; F17.210 Nicotine dependence, cigarettes, uncomplicated | CPT/HCPCS: 93005 ==

== ENCOUNTER 2022-10-11 10:26 | Outpatient (CLI) | payer OTHER | END 2022-10-11 10:27 | disposition home or self-care (01) | LOC: TBSIIMAG 10:26 | PROVIDERS: ATTEND Neurological Surgery | DX: M54.50 Low back pain, unspecified (principal); M54.2 Cervicalgia; R13.10 Dysphagia, unspecified; M47.812 Spondylosis without myelopathy or radiculopathy, cervical region; M43.16 Spondylolisthesis, lumbar region; M40.209 Unspecified kyphosis, site unspecified; Z98.1 Arthrodesis status; Z98.890 Other specified postprocedural states | CPT/HCPCS: 72050; 72100 ==

== ENCOUNTER 2023-04-16 15:32 | Emergency (ER) | payer OTHER ==
[2023-04-16] MEDS ORDERED: Cyclobenzaprine 10 MG TAB ONE (16:35)
[2023-04-16] MEDS ORDERED: HYDROcodone/Acetaminophen 10/325 mg Tablet ONE (16:36)
== END 2023-04-16 18:05 | disposition home or self-care (01) ==
LOC: ERS 15:32
DX: M54.2 Cervicalgia (principal); M62.838 Other muscle spasm; E78.5 Hyperlipidemia, unspecified; E11.40 Type 2 diabetes mellitus with diabetic neuropathy, unspecified; Z79.899 Other long term (current) drug therapy; Z79.82 Long term (current) use of aspirin
CPT/HCPCS: 72050

== ENCOUNTER 2023-05-03 15:54 | Outpatient (CLI) | payer OTHER ==
[2023-05-03 17:13] LABS: Hematocrit 40.5 % (38.8-50.0); Hemoglobin 13.6 g/dL (13.5-17.5); Mean Corpuscular HGB CONC 33.6 g/dL (32.0-36.0); Mean Corpuscular Hemoglobin 30.2 pg (27.0-33.0); Mean Corpuscular Volume 89.8 fl (81.2-95.1); Mean Platelet Volume 9.6 fl (7.4-10.4); Platelet Count 389 10x3/uL (150-450); RBC Distribution Width 15.5 % (11.5-14.5); Red Blood Cell (RBC) Count 4.51 10x6/uL (4.32-5.72); White Blood Cell (WBC) Count 10.5 10x3/uL (3.5-10.5)
[2023-05-03 17:35] LABS: Anion Gap 14 mmol/L (10-20); BUN (Urea Nitrogen) 15 mg/dL (8.4-25.7); Calc. Creatinine Clearance 0 mL/min (70-130); Calcium 9.7 mg/dL (7.8-10.44); Carbon Dioxide 25 mmol/L (23-31); Chloride 107 mmol/L (98-107); Estimated GFR 82; Glucose 113 mg/dL (83-110); Potassium 4.3 mmol/L (3.5-5.1); Sodium 142 mmol/L (136-145)
== END 2023-05-03 15:55 | disposition home or self-care (01) ==
LOC: LABBT 15:54
PROVIDERS: ATTEND Neurological Surgery
DX: Z01.818 Encounter for other preprocedural examination (principal); M54.16 Radiculopathy, lumbar region
CPT/HCPCS: 80048; 85027; 93005; 93010

== ENCOUNTER 2023-05-08 07:45 | Day surgery (SDC) | payer OTHER ==
[2023-05-03 16:21] VITALS: BMI 29.2
[2023-05-08] MEDS ORDERED: Vancomycin HCl 500 MG VIAL ONE (09:34)
[2023-05-08] MEDS ORDERED: EPINEPHrine 1 MG/ML VIAL ONE (09:34)
[2023-05-08] MEDS ORDERED: Bupivacaine PF 0.5% 30 ML VIAL ONE (09:35)
[2023-05-08] MEDS ORDERED: Thrombin 5000 UNITS/5 ML VIAL ONE (09:35)
[2023-05-08] MEDS ORDERED: LevoFLOXacin 500 mg/D5W 100 ML BAG ONE (09:46)
[2023-05-08] MEDS ORDERED: PROPOFOL 20 ML ONE ×2 (09:52→11:05)
[2023-05-08] MEDS ORDERED: fentaNYL PF 100 MCG/2 ML SYRINGE ONE (09:52)
[2023-05-08] MEDS ORDERED: Rocuronium Bromide 10 MG/ML (10ML VIAL) ONE ×3 (09:54→09:58)
[2023-05-08] MEDS ORDERED: Dexamethasone 20 MG/5 ML VIAL ONE ×2 (09:54→09:58)
[2023-05-08] MEDS ORDERED: Ondansetron PF 4 MG/2 ML Vial ONE ×2 (09:54→09:58)
[2023-05-08] MEDS ORDERED: Clindamycin/D5W 900 mg/50 ml Premix Bag ONE (09:55)
[2023-05-08] MEDS ORDERED: PROPOFOL 200 MG/20 ML VIAL ONE (09:58)
[2023-05-08] MEDS ORDERED: NEOSTIGMINE 3 MG/3 ML SYR 3 MG/3 ML SYRINGE ONE ×2 (09:58→10:55)
[2023-05-08] MEDS ORDERED: Glycopyrrolate 0.2 MG/ML 5 ML SYRINGE ONE ×2 (09:58→10:55)
[2023-05-08] MEDS ORDERED: ePHEDrine Sulfate 50 MG/10 ML VIAL ONE ×2 (09:58→10:10)
[2023-05-08] MEDS ORDERED: Tamsulosin HCl 0.4 MG CAP ONE (11:42)
[2023-05-08] MEDS ORDERED: HYDROcodone/Acetaminophen 5/325 mg Tablet ONE (13:09)
== END 2023-05-08 14:48 | disposition home or self-care (01) ==
LOC: SDC 07:45
PROVIDERS: ATTEND Neurological Surgery
PROC: 01NB0ZZ Release Lumbar Nerve, Open Approach (ICD-10-PCS; principal; 2023-05-08)
DX: M54.16 Radiculopathy, lumbar region (principal); M48.061 Spinal stenosis, lumbar region without neurogenic claudication; E78.5 Hyperlipidemia, unspecified; E11.42 Type 2 diabetes mellitus with diabetic polyneuropathy; F17.210 Nicotine dependence, cigarettes, uncomplicated; Z88.0 Allergy status to penicillin; Z88.6 Allergy status to analgesic agent; Z86.73 Personal history of transient ischemic attack (TIA), and cerebral infarction without residual deficits; Z79.82 Long term (current) use of aspirin; Z79.899 Other long term (current) drug therapy
CPT/HCPCS: J0171; J1100; J1956; J2405; J2704; J3370; J3490; S0020

== ENCOUNTER 2023-07-09 19:49 | Emergency (ER) | payer OTHER | END 2023-07-09 21:07 | disposition left against medical advice (07) | LOC: ERS 19:49 | DX: Z53.21 Procedure and treatment not carried out due to patient leaving prior to being seen by health care provider (principal) ==

== ENCOUNTER 2024-06-19 02:04 | Inpatient (IN) | payer MEDICARE, OTHER, SELFPAY ==
[2024-06-19] MEDS ORDERED: niCARdipine 25 MG/10 ML SDV ONE ×3 (02:55→08:07)
[2024-06-19] MEDS ORDERED: Tenecteplase 50 MG ONE (03:06)
[2024-06-19 03:22] LABS: #Basophils 0.08 10x3/uL (0.0-0.2); %Basophils 0.8 % (0.0-1.0); %Eosinophils 3.7 % (0.0-10.0); %Lymphocytes 37.6 % (21.0-51.0); %Monocytes 12.6 % (0.0-10.0); Hemoglobin 14.6 g/dL (14.0-18.0); Mean Corpuscular Hemoglobin 30.4 pg (27.0-31.0); Mean Corpuscular Volume 89.4 fL (78.0-98.0); Mean Platelet Volume 9.2 fL (7.4-10.4); Platelet Count 321 10x3/uL (130-400); RBC Distribution Width 14.5 % (11.5-14.5); Red Blood Cell (RBC) Count 4.81 mill/uL (4.70-6.10)
[2024-06-19 03:55] LABS: PTT 29.5 sec (22.9-36.1); Prothrombin Time 12.8 sec (12.0-14.7)
[2024-06-19 03:56] LABS: ALT (SGPT) 28 U/L (8-55); AST (SGOT) 22 U/L (5-34); Albumin 3.8 g/dL (3.4-4.8); Alkaline Phosphatase 73 U/L (40-110); Anion Gap 16 mmol/L (10-20); BUN (Urea Nitrogen) 16 mg/dL (8.4-25.7); Bilirubin, Total 0.3 mg/dL (0.2-1.2); Calc. Creatinine Clearance 0 mL/min (70-130); Calcium 9.4 mg/dL (7.8-10.44); Carbon Dioxide 21 mmol/L (23-31); Chloride 104 mmol/L (98-107); Estimated GFR 83; Globulin 3.9 g/dL (2.4-3.5); Glucose 114 mg/dL (83-110); Potassium 3.8 mmol/L (3.5-5.1); Protein, Total 7.7 g/dL (5.8-8.1); Sodium 137 mmol/L (136-145)
[2024-06-19 04:00] LABS: Troponin I Less than 0.010 ng/mL (< 0.028)
[2024-06-19 04:20] LABS: Actual Bicarbonate (HCO3a) 16.3 mEq/L (22-28); Analyzer IN Cardio ER; Base Excess (BEa) -7.4 mEq/L (-2.0 to +3.0); CO2 Tension 26.1 mmHg (35.0-45.0); Calcium, Ionized (arterial) 1.14 mmol/L (1.12-1.30); Carboxyhemoglobin (COHb) 1.8 gm% (0.0-3.0); Hematocrit-ABG 21 % (42.0-52.0); Hemoglobin (Hb) 7.2 g/dL (14.0-18.0); O2 Tension (PaO2), arterial 288.5 mmHg (> 70.0); pH, Arterial 7.414 (7.35-7.45)
[2024-06-19 04:21] LABS: ALV-art Gradient 35.375 mmHg (0-20); Potassium - ABG Lab 6.35 mmol/L (3.70-5.30); Puncture Site Left Radial artery
[2024-06-19] MEDS ORDERED: Iopamidol-370 76% 500 ML MDV (1 ML CHARGE) ONE (08:58)
[2024-06-19] MEDS ORDERED: Acetaminophen 650 MG Suppository PR PRN (10:58)
[2024-06-19] MEDS ORDERED: niCARdipine 25 MG in Sodium Chloride 0.9% 250 ML 250 ML IVPB PRN (10:58)
[2024-06-19] MEDS ORDERED: Calcium Carbonate 500 MG ChewTAB PO PRN (11:03)
[2024-06-19] MEDS ORDERED: Ondansetron PF 4 MG/2 ML Vial IVP PRN (11:03)
[2024-06-19] MEDS ORDERED: Ondansetron ODT 4 MG TAB PO PRN (11:03)
[2024-06-19] MEDS ORDERED: Electrolyte Replacement Protocol 1 EACH FS PRN (11:28)
[2024-06-19] MEDS: Dextrose 5%-Lactated Ringers 1,000 ML IV SCH (12:12)
[2024-06-19] MEDS: Haloperidol Lactate 5 MG/ML VIAL SLOW IVP PRN (12:53)
[2024-06-19] MEDS: Magnesium 2 GM/50 ML(in water) 2 GM in Premix 1 BAG IVPB SCH (13:05)
[2024-06-19] MEDS: Labetalol HCl 100 MG/20 ML VIAL SLOW IVP PRN (14:57)
[2024-06-19] MEDS: Dexmedetomidine In 0.9 % NaCl 100 ML IVPB SCH (16:56)
[2024-06-19] MEDS: Communication Order-Pharmacy FS SCH (17:42)
[2024-06-19] MEDS: Electrolyte Replacement Protocol 1 EACH FS ONE (17:46)
[2024-06-19] MEDS: Docusate 100 MG CAP PO SCH (20:13)
[2024-06-19] MEDS: Atorvastatin Calcium 40 MG TAB PO SCH (20:13)
[2024-06-19] MEDS: Famotidine 20 MG TAB PO SCH (20:14)
[2024-06-19] MEDS: Famotidine/PF 20 mg/2ml Vial SLOW IVP SCH (20:37)
[2024-06-20 04:16] VITALS: BMI 27.0
[2024-06-20 06:14] LABS: ALT (SGPT) 21 U/L (8-55); AST (SGOT) 24 U/L (5-34); Albumin 3.3 g/dL (3.4-4.8); Alkaline Phosphatase 56 U/L (40-110); Anion Gap 13 mmol/L (10-20); BUN (Urea Nitrogen) 11 mg/dL (8.4-25.7); Bilirubin, Total 0.5 mg/dL (0.2-1.2); Calc. Creatinine Clearance 111 mL/min (70-130); Calcium 9.3 mg/dL (7.8-10.44); Carbon Dioxide 25 mmol/L (23-31); Chloride 108 mmol/L (98-107); Cholesterol 224 mg/dl (< 200 Desired); Estimated GFR 95; Globulin 3.7 g/dL (2.4-3.5); Glucose 109 mg/dL (83-110); HDL Cholesterol 32 mg/dL (>60 Neg Risk); LDL Cholesterol, Calculated 160 mg/dL; Sodium 142 mmol/L (136-145); Triglycerides 162 mg/dL (Less than 150)
[2024-06-20 06:17] LABS: Phosphorus 2.8 mg/dL (2.3-4.7)
[2024-06-20 06:18] LABS: #Basophils 0.06 10x3/uL (0.0-0.2); %Basophils 0.6 % (0.0-1.0); %Eosinophils 0.8 % (0.0-10.0); %Lymphocytes 21.3 % (21.0-51.0); %Monocytes 14.2 % (0.0-10.0); %Neutrophils 62.8 % (42.0-75.0); Hematocrit 39.2 % (42.0-52.0); Hemoglobin 13.3 g/dL (14.0-18.0); Mean Corpuscular HGB CONC 33.9 g/dL (32.0-36.0); Mean Corpuscular Hemoglobin 30.8 pg (27.0-31.0); Mean Corpuscular Volume 90.7 fL (78.0-98.0); Mean Platelet Volume 9.7 fL (7.4-10.4); Platelet Count 318 10x3/uL (130-400); RBC Distribution Width 14.6 % (11.5-14.5); Red Blood Cell (RBC) Count 4.32 mill/uL (4.70-6.10)
[2024-06-20] MEDS: Aspirin 300 MG Suppository PR SCH (08:40)
[2024-06-20] MEDS: Lorazepam 2 MG/ML VIAL SLOW IVP SCH (10:47)
[2024-06-20] MEDS: Lisinopril 20 MG TAB PO SCH (20:11)
[2024-06-20] MEDS: Morphine 2 MG/ML VIAL SLOW IVP SCH (20:11)
[2024-06-21] MEDS: Morphine 2 MG/ML VIAL SLOW IVP PRN (02:21)
[2024-06-21 04:33] LABS: #Basophils 0.05 10x3/uL (0.0-0.2); %Basophils 0.4 % (0.0-1.0); %Eosinophils 0.5 % (0.0-10.0); %Lymphocytes 20.9 % (21.0-51.0); %Monocytes 11.9 % (0.0-10.0); %Neutrophils 65.9 % (42.0-75.0); Hematocrit 42.8 % (42.0-52.0); Hemoglobin 14.8 g/dL (14.0-18.0); Mean Corpuscular HGB CONC 34.6 g/dL (32.0-36.0); Mean Corpuscular Hemoglobin 30.3 pg (27.0-31.0); Mean Corpuscular Volume 87.7 fL (78.0-98.0); Mean Platelet Volume 9.6 fL (7.4-10.4); Platelet Count 358 10x3/uL (130-400); RBC Distribution Width 14.3 % (11.5-14.5); Red Blood Cell (RBC) Count 4.88 mill/uL (4.70-6.10)
[2024-06-21 04:54] LABS: ALT (SGPT) 25 U/L (8-55); AST (SGOT) 48 U/L (5-34); Albumin 3.6 g/dL (3.4-4.8); Alkaline Phosphatase 64 U/L (40-110); Anion Gap 16 mmol/L (10-20); BUN (Urea Nitrogen) 11 mg/dL (8.4-25.7); Bilirubin, Total 0.7 mg/dL (0.2-1.2); Calc. Creatinine Clearance 107 mL/min (70-130); Calcium 9.7 mg/dL (7.8-10.44); Carbon Dioxide 21 mmol/L (23-31); Chloride 108 mmol/L (98-107); Estimated GFR 94; Globulin 4.2 g/dL (2.4-3.5); Glucose 98 mg/dL (83-110); Potassium 3.8 mmol/L (3.5-5.1); Protein, Total 7.8 g/dL (5.8-8.1); Sodium 141 mmol/L (136-145)
[2024-06-21] MEDS: hydrALAZINE 20 MG/ML VIAL SLOW IVP PRN (08:16)
[2024-06-21] MEDS: Aspirin 325 mg Enteric Coated Tablet PO SCH (10:29)
[2024-06-21] MEDS: FLU (Fluad Triv) TS24-25 (65UP)/MF59C/PF 45 MCG/0.5 ML Syringe IM ONE (10:33)
[2024-06-21] MEDS: Acetaminophen 325 MG TAB PO PRN (20:42)
[2024-06-22] MEDS: Lorazepam 2 MG/ML VIAL SLOW IVP PRN (03:40)
[2024-06-22] MEDS: Clopidogrel Bisulfate 75 MG TAB PO SCH (08:43)
[2024-06-22] MEDS: Amlodipine 10 MG TAB PO SCH (08:43)
[2024-06-22] MEDS: Ferrous Sulfate 325 MG TAB PO SCH (08:44)
[2024-06-22] MEDS: DULoxetine 30 MG CAP PO SCH (08:44)
[2024-06-22] MEDS: Folic Acid 1 MG TAB PO SCH (08:44)
[2024-06-22] MEDS: tiZANidine HCl 4 MG TAB PO PRN (19:32)
[2024-06-23 12:43] VITALS: BMI 26.2
[2024-06-24] MEDS: Aspirin Chewable 81 MG TAB PO SCH (10:04)
[2024-06-27] MEDS ORDERED: Electrolyte Replacement Protocol FS PRN (07:45)
[2024-06-27] MEDS: Ferrous Sulfate 325 MG TAB PO SCH (09:44)
[2024-06-28] MEDS ORDERED: Carvedilol 25 MG TAB PO SCH (09:00)
[2024-06-28] MEDS: Carvedilol 25 MG TAB PO SCH (09:19)
[2024-06-28] MEDS: Finasteride 5 MG TAB PO SCH (09:21)
[2024-06-29] MEDS: Carvedilol 25 MG TAB PO SCH ×2 (09:34→21:42)
[2024-06-29 15:57] LABS: Hematocrit 42.2 % (42.0-52.0); Hemoglobin 14.5 g/dL (14.0-18.0); Mean Corpuscular HGB CONC 34.4 g/dL (32.0-36.0); Mean Corpuscular Hemoglobin 30.4 pg (27.0-31.0); Mean Corpuscular Volume 88.5 fL (78.0-98.0); Mean Platelet Volume 9.3 fL (7.4-10.4); Platelet Count 443 10x3/uL (130-400); RBC Distribution Width 13.3 % (11.5-14.5); Red Blood Cell (RBC) Count 4.77 mill/uL (4.70-6.10)
[2024-06-29 16:06] LABS: Anion Gap 12 mmol/L (10-20); BUN (Urea Nitrogen) 14 mg/dL (8.4-25.7); Calc. Creatinine Clearance 111 mL/min (70-130); Calcium 9.5 mg/dL (7.8-10.44); Carbon Dioxide 23 mmol/L (23-31); Chloride 108 mmol/L (98-107); Estimated GFR 97; Glucose 85 mg/dL (83-110); Sodium 139 mmol/L (136-145)
[2024-06-30] MEDS: Enoxaparin 40 MG (0.4 mL) SYRINGE SC SCH (09:41)
[2024-06-30 12:54] VITALS: BP 113/66; TEMP 98
== END 2024-06-30 13:40 | disposition home or self-care (01) | DRG 62 ==
LOC: ERS 02:04 → ERHOLD 05:33 → CCU 10:34 → OBSVTOIN 10:59 → 2SE 06-20 16:52
PROVIDERS: ADMIT Family Medicine; ATTEND Student in an Organized Health Care Education/Training Program
DX: I63.9 Cerebral infarction, unspecified (principal); E87.20 Acidosis, unspecified; I16.9 Hypertensive crisis, unspecified; G81.91 Hemiplegia, unspecified affecting right dominant side; E78.5 Hyperlipidemia, unspecified; E83.42 Hypomagnesemia; E11.22 Type 2 diabetes mellitus with diabetic chronic kidney disease; I12.9 Hypertensive chronic kidney disease with stage 1 through stage 4 chronic kidney disease, or unspecified chronic kidney disease; N18.2 Chronic kidney disease, stage 2 (mild); F17.210 Nicotine dependence, cigarettes, uncomplicated; E87.8 Other disorders of electrolyte and fluid balance, not elsewhere classified; N40.0 Benign prostatic hyperplasia without lower urinary tract symptoms; M54.9 Dorsalgia, unspecified; Z86.73 Personal history of transient ischemic attack (TIA), and cerebral infarction without residual deficits; Z79.82 Long term (current) use of aspirin; Z79.01 Long term (current) use of anticoagulants; Z99.3 Dependence on wheelchair
CPT/HCPCS: 0042T; 36415; 36416; 36600; 70450; 70496; 70498; 71045; 74230; 80048; 80053; 80061; 82805; 83735; 83880; 84100; 84484; 85025; 85027; 85610; 85730; 93005; 93306; 94002; 96374; 96375; J0360; J1630; J1650; J2060; J2272; J3101; J3475; J3490; Q9967

== ENCOUNTER 2025-02-10 17:43 | Inpatient (IN) | payer MEDICARE, OTHER ==
[~2025-02-10 17:43] MED LIST changes: -Iopamidol-370 76% 500 ML 1 ML ONE; +Iopamidol-370 76% 500 ML MDV (1 ML CHARGE) ONE
[2025-02-10 18:41] LABS: #Basophils 0.04 10x3/uL (0.0-0.2); #Eosinophils 0.22 10x3/uL (0.0-0.7); #Monocytes 1.33 10x3/uL (0.11-0.59); #Neutrophils 5.94 10x3/uL (1.40-6.50); %Basophils 0.4 % (0.0-1.0); %Eosinophils 2.1 % (0.0-10.0); %Lymphocytes 28.8 % (21.0-51.0); %Monocytes 12.5 % (0.0-10.0); %Neutrophils 55.8 % (42.0-75.0); Hematocrit 36.3 % (42.0-52.0); Hemoglobin 11.6 g/dL (14.0-18.0); Mean Corpuscular Hemoglobin 27.4 pg (27.0-31.0); Mean Corpuscular Volume 85.8 fL (78.0-98.0); Platelet Count 336 10x3/uL (130-400); Red Blood Cell (RBC) Count 4.23 mill/uL (4.70-6.10); White Blood Cell (WBC) Count 10.63 10x3/uL (4.8-10.8)
[2025-02-10 18:57] LABS: Cocaine Metabolite Screen Negative (Negative); THC/Cannabinoid Screen PRELIM POSITIVE (Negative); Tricyclic Screen Negative (Negative)
[2025-02-10 18:58] LABS: Magnesium 1.8 mg/dL (1.6-2.6)
[2025-02-10 18:59] LABS: Acetaminophen Less than 10 mcg/mL (Less than 10); Salicylate Less than 8.0 mg/dL (Less than 8.0)
[2025-02-10 19:00] LABS: INR-International Normal Ratio 1.2; PTT 32.8 sec (22.9-36.1); Prothrombin Time 15.1 sec (12.0-14.7)
[2025-02-10 19:01] LABS: ALT (SGPT) 19 U/L (Less than 45); AST (SGOT) 27 U/L (11-34); Albumin 2.9 g/dL (3.1-4.5); Alkaline Phosphatase 52 U/L (40-110); Anion Gap 10 mmol/L (10-20); BUN (Urea Nitrogen) 15 mg/dL (8.4-25.7); Bilirubin, Total 0.2 mg/dL (0.3-1.2); Calc. Creatinine Clearance 0 mL/min (70-130); Calcium 8.5 mg/dL (7.8-10.44); Carbon Dioxide 24 mmol/L (23-31); Chloride 107 mmol/L (98-107); Globulin 3.3 g/dL (2.4-3.5); Glucose 81 mg/dL (83-110); Potassium 4.1 mmol/L (3.5-5.1); Sodium 137 mmol/L (136-145)
[2025-02-10 19:01] LABS: Bacteria/HPF None Seen HPF (None Seen); CAUTI Indications for Culture Alt mental st,lethar; Glucose, Urine (Dipstick) Normal (Negative); Leukocyte 250 Leu/uL (Negative); Protein, Urine (Dipstick) 20 mg/dL (Neg-Trace); Specific Gravity, Urine 1.043 (1.002-1.036); WBC/HPF 21-50 HPF (0-3)
[2025-02-10 19:08] LABS: Urine Culture Reflex Yes Yes
[2025-02-10] MEDS ORDERED: Acetaminophen 325 MG TAB PO PRN (21:34)
[2025-02-10] MEDS ORDERED: Glucagon 1 MG/ML KIT IM PRN (21:34)
[2025-02-10] MEDS ORDERED: Dextrose 50% Abboject 50 ML SYRINGE SLOW IVP PRN (21:34)
[2025-02-10] MEDS ORDERED: hydrALAZINE 20 MG/ML VIAL SLOW IVP PRN (21:34)
[2025-02-10] MEDS ORDERED: Ondansetron PF 4 MG/2 ML Vial IVP PRN (21:34)
[2025-02-11 00:52] VITALS: BMI 22.3
[2025-02-11 04:10] LABS: #Basophils 0.04 10x3/uL (0.0-0.2); #Eosinophils 0.10 10x3/uL (0.0-0.7); #Monocytes 0.94 10x3/uL (0.11-0.59); #Neutrophils 5.53 10x3/uL (1.40-6.50); %Basophils 0.4 % (0.0-1.0); %Eosinophils 1.0 % (0.0-10.0); %Lymphocytes 31.7 % (21.0-51.0); %Monocytes 9.7 % (0.0-10.0); %Neutrophils 57.0 % (42.0-75.0); Hematocrit 37.5 % (42.0-52.0); Hemoglobin 12.4 g/dL (14.0-18.0); Mean Corpuscular Hemoglobin 27.3 pg (27.0-31.0); Mean Corpuscular Volume 82.6 fL (78.0-98.0); Platelet Count 354 10x3/uL (130-400); Red Blood Cell (RBC) Count 4.54 mill/uL (4.70-6.10); White Blood Cell (WBC) Count 9.71 10x3/uL (4.8-10.8)
[2025-02-11 04:27] LABS: Anion Gap 15 mmol/L (10-20); BUN (Urea Nitrogen) 11 mg/dL (8.4-25.7); Calc. Creatinine Clearance 110 mL/min (70-130); Calcium 9.4 mg/dL (7.8-10.44); Carbon Dioxide 21 mmol/L (23-31); Cardiac Risk 5.7 (Less than 4.5); Chloride 107 mmol/L (98-107); Cholesterol 198 mg/dl (< 200 Desired); Glucose 89 mg/dL (83-110); HDL Cholesterol 35 mg/dL (>60 Neg Risk); LDL Cholesterol, Calculated 146 mg/dL; Potassium 3.9 mmol/L (3.5-5.1); Sodium 139 mmol/L (136-145); Triglycerides 87 mg/dL (Less than 150)
[2025-02-11] MEDS ORDERED: Aspirin 81 mg Enteric Coated Tablet PO SCH (09:00)
[2025-02-11] MEDS: Ferrous Sulfate 325 MG TAB PO SCH (09:44)
[2025-02-11] MEDS: DULoxetine 30 MG CAP PO SCH (09:44)
[2025-02-11] MEDS: Finasteride 5 MG TAB PO SCH (09:44)
[2025-02-11] MEDS: LevoFLOXacin 500 mg/D5W 500 MG in Premix 1 BAG IVPB SCH (16:53)
[2025-02-12 04:07] LABS: #Basophils 0.05 10x3/uL (0.0-0.2); #Eosinophils 0.10 10x3/uL (0.0-0.7); #Monocytes 0.93 10x3/uL (0.11-0.59); #Neutrophils 4.78 10x3/uL (1.40-6.50); %Basophils 0.6 % (0.0-1.0); %Eosinophils 1.2 % (0.0-10.0); %Lymphocytes 29.7 % (21.0-51.0); %Monocytes 11.1 % (0.0-10.0); %Neutrophils 57.2 % (42.0-75.0); Hematocrit 39.2 % (42.0-52.0); Hemoglobin 12.6 g/dL (14.0-18.0); Mean Corpuscular Hemoglobin 27.0 pg (27.0-31.0); Mean Corpuscular Volume 84.1 fL (78.0-98.0); Platelet Count 355 10x3/uL (130-400); Red Blood Cell (RBC) Count 4.66 mill/uL (4.70-6.10); White Blood Cell (WBC) Count 8.36 10x3/uL (4.8-10.8)
[2025-02-12 04:35] LABS: Anion Gap 12 mmol/L (10-20); BUN (Urea Nitrogen) 10 mg/dL (8.4-25.7); Calc. Creatinine Clearance 111 mL/min (70-130); Calcium 9.2 mg/dL (7.8-10.44); Carbon Dioxide 24 mmol/L (23-31); Chloride 105 mmol/L (98-107); Glucose 76 mg/dL (83-110); Potassium 3.6 mmol/L (3.5-5.1); Sodium 137 mmol/L (136-145)
[2025-02-12] MEDS: Aspirin 81 mg Enteric Coated Tablet PO SCH (08:45)
[2025-02-12 13:07] LABS: Campy jejuni + coli by PCR Negative (Negative); STEC Shiga Toxin 1+2 Negative (Negative); Salmonella spp. by PCR Negative (Negative); Shigella spp + EIEC by PCR Negative (Negative)
[2025-02-13] MEDS: Carvedilol 25 MG TAB PO SCH (10:07)
[2025-02-13 13:59] VITALS: BMI 22.3
[2025-02-15 08:27] LABS: Hematocrit 39.9 % (42.0-52.0); Hemoglobin 13.0 g/dL (14.0-18.0); Mean Corpuscular Hemoglobin 27.0 pg (27.0-31.0); Mean Corpuscular Volume 82.8 fL (78.0-98.0); Platelet Count 305 10x3/uL (130-400); Red Blood Cell (RBC) Count 4.82 mill/uL (4.70-6.10); White Blood Cell (WBC) Count 8.98 10x3/uL (4.8-10.8)
[2025-02-15 08:46] LABS: Anion Gap 14 mmol/L (10-20); BUN (Urea Nitrogen) 13 mg/dL (8.4-25.7); Calc. Creatinine Clearance 129 mL/min (70-130); Calcium 9.2 mg/dL (7.8-10.44); Carbon Dioxide 23 mmol/L (23-31); Chloride 105 mmol/L (98-107); Glucose 82 mg/dL (83-110); Potassium 3.7 mmol/L (3.5-5.1); Sodium 138 mmol/L (136-145)
[2025-02-15 10:26] LABS: Hematocrit 40.1 % (42.0-52.0); Hemoglobin 13.3 g/dL (14.0-18.0); Mean Corpuscular Hemoglobin 26.9 pg (27.0-31.0); Mean Corpuscular Volume 81.2 fL (78.0-98.0); Platelet Count 273 10x3/uL (130-400); Red Blood Cell (RBC) Count 4.94 mill/uL (4.70-6.10); White Blood Cell (WBC) Count 9.47 10x3/uL (4.8-10.8)
[2025-02-15 10:37] LABS: Anion Gap 14 mmol/L (10-20); BUN (Urea Nitrogen) 14 mg/dL (8.4-25.7); Calc. Creatinine Clearance 124 mL/min (70-130); Calcium 9.2 mg/dL (7.8-10.44); Carbon Dioxide 23 mmol/L (23-31); Chloride 106 mmol/L (98-107); Glucose 93 mg/dL (83-110); Potassium 3.7 mmol/L (3.5-5.1); Sodium 139 mmol/L (136-145)
[2025-02-15] MEDS: Acetaminophen 325 MG TAB PO PRN (21:24)
[2025-02-16 11:46] VITALS: BP 117/62; TEMP 97.9
== END 2025-02-16 15:57 | DRG 689 ==
LOC: ERS 17:43 → 2SE 20:51 → OBSVTOIN 02-11 08:27
PROVIDERS: ADMIT Student in an Organized Health Care Education/Training Program; ATTEND Internal Medicine
DX: N39.0 Urinary tract infection, site not specified (principal); G93.41 Metabolic encephalopathy; I13.0 Hypertensive heart and chronic kidney disease with heart failure and stage 1 through stage 4 chronic kidney disease, or unspecified chronic kidney disease; I69.951 Hemiplegia and hemiparesis following unspecified cerebrovascular disease affecting right dominant side; I50.22 Chronic systolic (congestive) heart failure; R47.1 Dysarthria and anarthria; E78.5 Hyperlipidemia, unspecified; N40.0 Benign prostatic hyperplasia without lower urinary tract symptoms; M10.9 Gout, unspecified; K21.9 Gastro-esophageal reflux disease without esophagitis; E11.22 Type 2 diabetes mellitus with diabetic chronic kidney disease; N18.2 Chronic kidney disease, stage 2 (mild); Z99.3 Dependence on wheelchair; Z88.0 Allergy status to penicillin; Z98.890 Other specified postprocedural states; Z79.82 Long term (current) use of aspirin; Z79.899 Other long term (current) drug therapy; E11.51 Type 2 diabetes mellitus with diabetic peripheral angiopathy without gangrene; R29.898 Other symptoms and signs involving the musculoskeletal system; R29.810 Facial weakness; B95.2 Enterococcus as the cause of diseases classified elsewhere; D63.1 Anemia in chronic kidney disease; D50.9 Iron deficiency anemia, unspecified
CPT/HCPCS: 36415; 36416; 51701; 70450; 70496; 70498; 70551; 71045; 80048; 80053; 80061; 80306; 80307; 81001; 83605; 83735; 83880; 84484; 85025; 85027; 85610; 85730; 87040; 87077; 87086; 87186; 87324; 87449; 87505; 93005; 96361; 96365; 96366; G0378; J1956; Q9967

== ENCOUNTER 2025-06-10 23:22 | Emergency (ER) | payer OTHER, MEDICARE ==
[2025-06-11 04:12] LABS: #Basophils 0.05 10x3/uL (0.0-0.2); #Eosinophils Less than 0.03 10x3/uL (0.0-0.7); #Monocytes 2.20 10x3/uL (0.11-0.59); #Neutrophils 14.11 10x3/uL (1.40-6.50); %Basophils 0.3 % (0.0-1.0); %Eosinophils 0.0 % (0.0-10.0); %Lymphocytes 13.3 % (21.0-51.0); %Monocytes 11.6 % (0.0-10.0); %Neutrophils 74.2 % (42.0-75.0); Hematocrit 43.0 % (42.0-52.0); Hemoglobin 14.0 g/dL (14.0-18.0); Mean Corpuscular Hemoglobin 28.1 pg (27.0-31.0); Mean Corpuscular Volume 86.2 fL (78.0-98.0); Platelet Count 395 10x3/uL (130-400); Red Blood Cell (RBC) Count 4.99 mill/uL (4.70-6.10); White Blood Cell (WBC) Count 19.00 10x3/uL (4.8-10.8)
[2025-06-11 04:16] LABS: Leukocyte Moderate (Negative); Specific Gravity, Urine Less than 1.005 (1.005-1.030)
[2025-06-11 04:17] LABS: CAUTI Indications for Culture Alt mental st,lethar; Glucose, Urine (Dipstick) Negative (Negative); Protein, Urine (Dipstick) 100 mg/dL (Neg-Trace); WBC/HPF 0-3 HPF (0-3)
[2025-06-11 04:18] LABS: Bacteria/HPF 1+ HPF (None Seen); RBC/HPF None Seen HPF (0-3)
[2025-06-11 04:19] LABS: Urine Culture Reflex No No
[2025-06-11 04:53] LABS: ALT (SGPT) 30 U/L (Less than 45); AST (SGOT) 39 U/L (11-34); Albumin 3.3 g/dL (3.1-4.5); Alkaline Phosphatase 71 U/L (40-110); Anion Gap 16 mmol/L (10-20); BUN (Urea Nitrogen) 21 mg/dL (8.4-25.7); Bilirubin, Total 0.5 mg/dL (0.3-1.2); Calc. Creatinine Clearance 0 mL/min (70-130); Calcium 9.8 mg/dL (7.8-10.44); Carbon Dioxide 24 mmol/L (23-31); Chloride 111 mmol/L (98-107); Globulin 4.5 g/dL (2.4-3.5); Glucose 127 mg/dL (83-110); Potassium 3.5 mmol/L (3.5-5.1); Sodium 147 mmol/L (136-145)
[2025-06-11] MEDS ORDERED: cefTRIAXone (ROCEPHIN) 1 GM VIAL ONE (05:01)
== END 2025-06-11 08:45 | disposition home or self-care (01) ==
LOC: ERS 23:22
DX: N39.0 Urinary tract infection, site not specified (principal); I10 Essential (primary) hypertension; E11.9 Type 2 diabetes mellitus without complications; Z86.73 Personal history of transient ischemic attack (TIA), and cerebral infarction without residual deficits; Z87.891 Personal history of nicotine dependence
CPT/HCPCS: 80053; 81001; 85025; 93005; 96374; J0696

== ENCOUNTER 2025-06-21 12:09 | Emergency (ER) | payer OTHER, MEDICARE ==
[2025-06-21] MEDS ORDERED: Lidocaine 1% w/Epinephrine 1:100K 20 ML VIAL ONE (13:16)
== END 2025-06-21 14:36 | disposition home or self-care (01) ==
LOC: ERS 12:09
DX: S91.311A Laceration without foreign body, right foot, initial encounter (principal); I10 Essential (primary) hypertension; E11.9 Type 2 diabetes mellitus without complications; Z86.73 Personal history of transient ischemic attack (TIA), and cerebral infarction without residual deficits; Z23 Encounter for immunization; Z79.82 Long term (current) use of aspirin; Z79.899 Other long term (current) drug therapy; W26.8XXA Contact with other sharp object(s), not elsewhere classified, initial encounter
CPT/HCPCS: 12002; 90471; 90715